=== PATIENT | female | born 1985 | race Caucasian/White ===

== ENCOUNTER → 2019-05-22 14:42 | Outpatient (BNVA) | payer SELFPAY | PROVIDERS: Visit Provider Family Medicine | DX: R05 Cough (principal) | CPT/HCPCS: 87071; 87400; 87635; 87880 ==

== ENCOUNTER → 2019-08-22 09:52 | Outpatient (BNVA) | payer SELFPAY | PROVIDERS: Visit Provider Podiatrist Foot & Ankle Surgery | DX: S86.111D Strain of other muscle(s) and tendon(s) of posterior muscle group at lower leg level, right leg, subsequent encounter (principal); X58.XXXD Exposure to other specified factors, subsequent encounter; M21.41 Flat foot [pes planus] (acquired), right foot; M79.671 Pain in right foot | CPT/HCPCS: 73630 ==

== ENCOUNTER 2019-08-23 09:57 | Day surgery (SDC) | payer SELFPAY ==
[2019-08-22 12:49] VITALS: BMI 42.5
[2019-08-23] VITALS (12 sets, daily range): BP systolic 133–175; BP diastolic 85–112; PULSE 85–116; RESP 16–20; TEMP 36.4–37.2; O2SAT 94–100
--- NOTE | 2019-08-23 | SCC_ITS ---
Procedure Done: Subtalar joint arthrodesis, right foot. Posterior tibial tendon repair, right foot. Gastrocnemius recession right lower extremity. 14 seconds of fluoroscopic guidance, for a cumulative dose of 0.4 mGy, was provided to Dr. Payan by the radiology department. C-arm images of the RIGHT foot were saved for the patient's permanent record. [facility]
--- NOTE | 2019-08-23 10:11 | ANES.PREANE2 ---
Pre-Anesthetic Assessment Pre-Anesthetic Assessment: Height/Weight: Height 1.63 m Weight 112.491 kg Preop Diagnosis: Posterior tibial tendon rupture and adult acquired flatfoot deformity right. Proposed Procedure: Operation Date: 08/23/19 11:00 Proposed Procedures p right subtalar joint arthrodesis talonavicular athrodesis [id number] M21.41(Right) - Iglesia Payan DPM s Gastrocnemius Recession(Right) - Iglesia Payan DPM Social: Social History: Alcohol (occ) and No tobacco Exam: Pre-Anes Outpt Exam: alert, oriented x 3, clear to auscultation bilaterally and regular rate & rhythm Airway: Submandibular: WNL Cervical ROM: WNL MP: 2 Dentition: Other (teeth ok) History/ROS: No significant history except as noted Pulmonary: Pulmonary: None reported CV/HEM: CV/HEM: None reported : : None reported Hepatic: Hepatic: None reported GI: GI: None reported Metabolic: Metabolic: Morbid obesity Musc/skel: Musc/skel: OA/DJD Neuropsych: Neuropsych: None reported Anesthetic Plan: ASA status: 3 Anesthesia: Anesthesia Evaluation, Eval. for regional block, General and Regional (specify below) (right Poplateal ) Risk of > 500 ml blood loss (7ml/kg in children): No PFSH Anesthesia PFSH: Medical History Arthralgia Pes planovalgus, acquired Surgical History History of appendectomy History of cholecystectomy History of toe surgery Social History Smoking and tobacco status: never smoked Alcohol intake: current Alcohol intake frequency: holidays/special occasions only Current occupational status: unemployed Female Reproductive History: Date of last menstrual period: 08/22/19 Data Anesthesia Cardiac Studies: No Data to Display
[2019-08-23] MEDS: sodium chloride 0.9% 1,000 ML 30 ML IV (10:42)
[2019-08-23] MEDS: fentaNYL 50 mcg/mL INJ 2mL 100 MCG IVP (11:00)
[2019-08-23] MEDS: midazolam 1 mg/mL INJ 2 mL 2 MG IVP (11:00)
--- NOTE | 2019-08-23 11:04 | ANES.PROC ---
Anesthesia Procedures Procedure/Date: 08/23/19 Nerve Block ^: Nerve Block 1: Main Anesthesia: general anesthesia Time Out Performed: Yes Consent: requested by attending/covering physician, risks and benefits reviewed and patient agrees to proceed Nerve block location: popliteal (right) Anesthesia monitors applied: pulse oximetry, EKG, BP cuff and oxygen Nerve block position: lateral (Left) Anesthetic Used: ropivicaine 0.5% and with decadron (4 mg) Amount of anesthesia used (mL): 30 Ultrasound used to: recognize landmarks Nerve Stimulator Used?: Yes Interscalene/Femoral BLK: 4 stimuplex 21 g needle used for position and inplane approach, visualize local anesthetic spread and no vascular puncture identified Injection: neg aspiration of heme Patient Tolerated Procedure: well and no complications Complications: none
[2019-08-23 11:08] LABS: OR HCG Qualitative Urine Negative (Negative)
[2019-08-23] MEDS: scopolamine 1.5 Patch 1 PATCH TRANSDERMA (11:14)
--- NOTE | 2019-08-23 11:38 | PM.OP ---
Operative Report Date of procedure: August 24, 2019 Pre-op Diagnosis: Posterior tibial tendon rupture and adult acquired flatfoot deformity right. Post-op diagnosis: same Procedure Done: Subtalar joint arthrodesis, right foot. Posterior tibial tendon repair, right foot. Gastrocnemius recession right lower extremity. Implants: [place] 28 7 mm partially-threaded headless cannulated screw x2. Arthrex FiberWire 2-0 Specimens removed/disposition: none Pathology: none sent Surgeon: Iglesia Payan Mail Order Clerk: Ad Pop Anesthesia: General Estimated blood loss (mL): 5 Tourniquet time: See intraoperative documentation IV fluids: None Urine output: None Complications: None Condition: stable Disposition: PACU Brief History: Ms. Geronimo is a pleasant 34-year-old female with progressive right lower extremity deformity and pain that is at this point affecting her ability to carry on with everyday activities. She has pain with weightbearing, walking with and without shoes. MRI confirms nearly complete rupture of the posterior tibial tendon. On exam has severe pes planovalgus deformity with gastrocnemius equinus. Recommended subtalar joint arthrodesis with primary repair of posterior tibial tendon and gastrocnemius recession to address the equinus deformity. She is agreeable wishes to proceed. Risks include pain, bleeding, numbness, infection, failure to correct deformity, overcorrection of deformity, rear foot varus, ankle instability, arthritic changes to adjacent joints including the ankle joint and the talonavicular joint. Hardware irritation, delayed union, malunion, nonunion, hardware failure, damage to adjacent soft tissues including tendon and nerve. Need for further surgical intervention. Patient is agreeable and wishes to proceed. Procedure: Under mild sedation the patient was brought to the operating room and placed on operating table in supine position. A timeout was performed. Anesthesia was then administered by the anesthesia service. Local anesthesia injected by myself consisting of 20 cc in a posterior leg block diffusely about the right gastrocnemius surgical site as well as a saphenous nerve block. A well-padded pneumatic tourniquet was applied to the high thigh right lower extremity. The right lower extremity was then scrubbed, prepped and draped utilizing normal aseptic technique. I utilized a Esmarch bandage to examine you weight the lower extremity, right after which the tourniquet was inflated 300 mmHg. Attention was directed to the right lateral rear foot where a curvilinear incision was made with a #15 blade started posterior and inferior 1 cm to the distal aspect of the lateral malleolus coursing in a curvilinear fashion to the base of the fourth metatarsal. Dissection was carried down through subcutaneous tissue utilizing a combination of blunt and sharp technique. Care was taken to retract and preserve neurovascular and tendinous structures. All bleeders were ligated and cauterized as necessary. Sural nerve was identified and gently retracted inferiorly, peroneal tendons also identified just posterior to the lateral malleolus at the peroneal groove this was also gently retracted utilizing a wheat [place] self-retaining retractor. Approaching the sinus tarsi the muscle origin of the extensor digitorum brevis was identified and reflected off of its origin accessing the sinus tarsi and removing it of its contents. Rondure was then utilized to visualize the subtalar joint posterior facet. Steinmann pin x2 utilized with intermittent retractor for joint distraction followed by preparation with curettage, osteotome followed by subchondral drilling with a 2.0 mm subchondral drill bit. Surfaces of the posterior middle and anterior facet of the talus and calcaneus were prepared for primary arthrodesis by removing all articular cartilage and performing drilling through the subchondral plate. Self-retaining joint distractor was removed followed by removal of Steinmann pins. Guidewire for a [place] 28 7 mm partially-threaded headless cannulated screw was utilized both for screw placement as well as temporary fixation the rear foot was held in a rectus position in all 3 cardinal planes and then favored a slight valgus position of 3 degrees of valgus. Lateral views and AP ankle views utilized to confirm positioning appropriate for fixation of subtalar joint arthrodesis the screw was through the posterior facet and did not violate the talus tibial joint articulation. A second screw was then inserted in like fashion across arthrodesis site with excellent bony apposition and compression noted. Placement with fluoroscopy in all 3 views noted to be excellent. Every fixation was removed and the incision site was flushed with copious amounts of sterile saline solution. Digitorum brevis muscle was reattached within the sinus tarsi and closure of periosteal structures with 2-0 Vicryl. Subcutaneous tissue closed with 4-0 Vicryl. Skin closed with 4-0 nylon. Attention was directed to the medial foot and ankle where the medial malleolus was palpated as well as the navicular tuberosity. A curvilinear incision was made approximately 5 cm in length along the course directly over the posterior tibial tendon, skin incision with a #15 blade followed by sharp and blunt dissection down to the tendon sheath of the posterior tibial tendon was performed which was then split longitudinally, care was taken to retract and preserve neurovascular and tendinous structures. All bleeders were ligated and cauterized as necessary. Primary repair of the posterior tibial tendon was performed after debulking and removal of nonviable degenerative tendon. Repair was performed with 2-0 FiberWire. Incision was flushed with copious amounts of sterile saline solution. Tendon sheath closed utilizing 2-0 Vicryl. Subcutaneous tissue was then closed utilizing 4-0 Vicryl and skin closed utilizing 4-0 nylon. Attention was directed to the right posterior leg where the myotendinous junction of the gastrocnemius Solus muscle and Achilles tendon was palpated. Proximal to this a incision was made 3 cm in length at the medial leg with blunt dissection carried down to the crural fascia which was incised 2 cm in length exposing the Allis and gastrocnemius muscles these were palpated and utilizing blunt dissection were well delineated followed by transection of the gastrocnemius aponeurosis utilizing Gatica scissors. Transection from medial to lateral was performed in total with care to protect neurovascular structures. Incision site was flushed with copious amounts of sterile saline solution. Crural fascia was reapproximated utilizing 2-0 Vicryl. Subcutaneous tissue closed with 2-0 Vicryl, skin closed with 4-0 nylon. Posterior heel percutaneous incisions from screw placement were reapproximated utilizing 4-0 nylon. It was noted that upon gastrocnemius recession that more dorsiflexion was appreciated at the ankle joint with an improvement of approximately 4 degrees of dorsiflexion post release. Incision sites were cleansed, dried and dressed utilizing nonadherent Adaptic, sterile 4 x 4's, ABD pad, Kerlix x2 and 4 as well as 6 inch Edy followed by application of cam boot. Tourniquet was deflated and a prompt hyperemic response was noted to the distal digits of the right foot. Patient tolerated the procedure well and was transferred to the PACU with vital signs stable and vascular status intact. Following a period of postoperative monitoring she will be discharged home is to be strict nonweightbearing and elevate her right foot while at rest.
--- NOTE | 2019-08-23 12:40 | W.PM.OPSUD ---
Surgery/Procedure H&P Update DATE OF PROCEDURE: August 23, 2019 DATE H&P PERFORMED: 08/22/19 H&P UPDATE INFORMATION: I have reviewed H&P completed within last 30 days, I have examined patient prior to procedure, No changes to prior documentation and H&P is in [facility] EMR on date indicated PREOP DIAGNOSIS: Posterior tibial tendon rupture and adult acquired flatfoot deformity right. PLANNED PROCEDURE: Operation Date: 08/23/19 11:00 Proposed Procedures p right subtalar joint arthrodesis talonavicular athrodesis [id number] M21.41(Right) - Iglesia Payan DPM s Gastrocnemius Recession(Right) - Iglesia Payan DPM
--- NOTE | 2019-08-23 14:55 | XR_ITS ---
WS: [id number] RIGHT FOOT: 3 VIEW(S) TECHNIQUE: AP, oblique and lateral. HISTORY: post op COMPARISON: 08/22/2019 Arthrodesis across the talocalcaneal joint space. There are 2 screws placed entering via the calcaneu s. No fractures. Normal tarsal/metatarsal alignment. XR/XR foot RT min 3V* [id number] IMPRESSION: Talocalcaneal arthrodesis. No apparent complications.
[2019-08-23] MEDS: fentaNYL 50 mcg/mL INJ 2mL IVP ×2 (15:06→15:11)
[2019-08-23] MEDS: oxyCODONE-APAP 10-325 mg Tablet 1 TAB PO (15:58)
== END 2019-08-23 16:25 | disposition home or self-care (01) ==
PROVIDERS: Anesthesiology; PCP Family Medicine; Visit Provider Podiatrist Foot & Ankle Surgery
PROC: (CPT 28740; principal; 2019-08-23 11:00)
PROC: (CPT 27687; 2019-08-23 11:00)
DX: S86.811A Strain of other muscle(s) and tendon(s) at lower leg level, right leg, initial encounter (principal); X58.XXXA Exposure to other specified factors, initial encounter; M21.41 Flat foot [pes planus] (acquired), right foot; M19.90 Unspecified osteoarthritis, unspecified site
CPT/HCPCS: 27658; 27687; 28725; 12345; 73630; 76000; 81025; 84703; 96374; 96375; C1713; J0131; J0690; J1100; J2250; J2405; J2704; J2765; J2795; J3010; J3490; J7030

== ENCOUNTER → 2019-09-05 10:12 | Outpatient (BNVA) | payer SELFPAY | PROVIDERS: PCP Family Medicine; Visit Provider Podiatrist Foot & Ankle Surgery | DX: S86.119A Strain of other muscle(s) and tendon(s) of posterior muscle group at lower leg level, unspecified leg, initial encounter (principal); M21.41 Flat foot [pes planus] (acquired), right foot; M79.671 Pain in right foot; X58.XXXA Exposure to other specified factors, initial encounter | CPT/HCPCS: 73610 ==

== ENCOUNTER → 2019-09-23 10:43 | Outpatient (BNVA) | payer SELFPAY | PROVIDERS: PCP Family Medicine; Visit Provider Podiatrist Foot & Ankle Surgery | DX: Z48.89 Encounter for other specified surgical aftercare (principal); S86.119A Strain of other muscle(s) and tendon(s) of posterior muscle group at lower leg level, unspecified leg, initial encounter; M79.671 Pain in right foot; M21.41 Flat foot [pes planus] (acquired), right foot; X58.XXXA Exposure to other specified factors, initial encounter | CPT/HCPCS: 73630 ==

== ENCOUNTER → 2019-09-24 09:04 | Outpatient (BNVA) | payer SELFPAY | PROVIDERS: PCP Family Medicine; Visit Provider Internal Medicine Rheumatology | DX: R76.8 Other specified abnormal immunological findings in serum (principal); Z79.899 Other long term (current) drug therapy; Z11.59 Encounter for screening for other viral diseases; Z11.1 Encounter for screening for respiratory tuberculosis; N96 Recurrent pregnancy loss; Z98.890 Other specified postprocedural states; M79.671 Pain in right foot | CPT/HCPCS: 36415; 80076; 81001; 82306; 82565; 82570; 84156; 85025; 85613; 85651; 85730; 86140; 86146; 86147; 86160; 86480; 86704; 86803; 86812; 87086; 87340; 99204 ==

== ENCOUNTER → 2019-10-14 10:05 | Outpatient (BNVA) | payer SELFPAY | PROVIDERS: PCP Family Medicine; Visit Provider Podiatrist Foot & Ankle Surgery | DX: Z47.89 Encounter for other orthopedic aftercare (principal); M21.41 Flat foot [pes planus] (acquired), right foot; M79.671 Pain in right foot | CPT/HCPCS: 73630 ==

== ENCOUNTER → 2019-10-29 13:17 | Outpatient (BNVA) | payer SELFPAY | PROVIDERS: PCP Family Medicine; Visit Provider Podiatrist Foot & Ankle Surgery | DX: Z98.890 Other specified postprocedural states (principal) | CPT/HCPCS: 73630 ==

== ENCOUNTER → 2019-11-07 12:42 | Outpatient (BNVA) | payer SELFPAY | PROVIDERS: PCP Family Medicine; Visit Provider Internal Medicine Rheumatology | DX: M35.9 Systemic involvement of connective tissue, unspecified (principal); Z79.899 Other long term (current) drug therapy; N96 Recurrent pregnancy loss; M19.90 Unspecified osteoarthritis, unspecified site; R76.8 Other specified abnormal immunological findings in serum | CPT/HCPCS: 99214 ==

== ENCOUNTER → 2019-11-13 14:55 | Outpatient (BNVA) | payer SELFPAY | PROVIDERS: PCP Family Medicine; Visit Provider Podiatrist Foot & Ankle Surgery | DX: Z98.890 Other specified postprocedural states (principal); Z48.89 Encounter for other specified surgical aftercare | CPT/HCPCS: 73630 ==

== ENCOUNTER 2019-12-06 17:34 | Emergency (ER) | payer OTHER, SELFPAY ==
[2019-12-06 17:45] VITALS: BP 183/132; PULSE 109; RESP 18; TEMP 37.3; O2SAT 99; BMI 42.9
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
[2019-12-06 19:22] VITALS: PULSE 109; O2SAT 99
== END 2019-12-06 19:28 | disposition home or self-care (01) ==
PROVIDERS: Emergency Provider Nurse Practitioner Family; PCP Family Medicine
DX: S40.011A Contusion of right shoulder, initial encounter (principal); S39.012A Strain of muscle, fascia and tendon of lower back, initial encounter; S96.911A Strain of unspecified muscle and tendon at ankle and foot level, right foot, initial encounter; V59.40XA Driver of pick-up truck or van injured in collision with unspecified motor vehicles in traffic accident, initial encounter
CPT/HCPCS: 12345; 72100; 73030; 73610; 99281; 99283

== ENCOUNTER 2020-02-27 11:12 | Outpatient (CLI) | payer OTHER, SELFPAY ==
--- NOTE | 2020-02-27 11:23 | XR_ITS ---
WS: [id number] Right hand, 3 views, 02/27/2020 Clinical Data: inflammatory arthritis Comparison: None. Findings: No fractures or dislocations are seen. The soft tissues are unremarkable. The joint space s are normal No periarticular demineralization or calcifications are seen. XR/XR hand RT min 3V* [id number] Impression: Negative right hand.
--- NOTE | 2020-02-27 11:23 | XR_ITS ---
WS: [id number] Chest 2 views, 02/27/2020 Clinical Data: inflammatory arthritis Comparison: PA and lateral chest, 03/11/2014. Findings: No nodules, masses or effusions are seen. The heart is normal. The pulmonary vascularity is not increased. No pneumonia or pneumothorax is seen. XR/XR chest 2V* [id number] Impression: Negative chest.
--- NOTE | 2020-02-27 11:23 | XR_ITS ---
WS: [id number] Left hand, 3 views, 02/27/2020 Clinical Data: inflammatory arthritis Comparison: None. Findings: No fractures or dislocations are seen. The soft tissues are unremarkable. The joint spaces are normal No periarticular demineralization or calcifications are seen. XR/XR hand LT min 3V* [id number] Impression: Negative left hand.
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
== END 2020-02-27 11:13 | disposition home or self-care (01) ==
PROVIDERS: PCP Family Medicine; Visit Provider Registered Nurse
DX: M25.562 Pain in left knee (principal); G89.29 Other chronic pain; S89.92XA Unspecified injury of left lower leg, initial encounter; M19.90 Unspecified osteoarthritis, unspecified site; X58.XXXA Exposure to other specified factors, initial encounter
CPT/HCPCS: 71046; 73130; 73562

== ENCOUNTER → 2020-03-13 15:14 | Outpatient (BNVA) | payer OTHER, SELFPAY | PROVIDERS: PCP Family Medicine; Visit Provider Podiatrist Foot & Ankle Surgery | DX: Z47.89 Encounter for other orthopedic aftercare (principal); M76.821 Posterior tibial tendinitis, right leg; M21.41 Flat foot [pes planus] (acquired), right foot; M79.671 Pain in right foot | CPT/HCPCS: 73630 ==

== ENCOUNTER 2020-04-21 09:35 | Outpatient (CLI) | payer OTHER, SELFPAY ==
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
== END 2020-04-21 09:36 | disposition home or self-care (01) ==
LOC: RADSHAW 09:38
PROVIDERS: PCP Registered Nurse; Visit Provider Registered Nurse
DX: N64.4 Mastodynia (principal); N63.10 Unspecified lump in the right breast, unspecified quadrant
CPT/HCPCS: 76642; 77066

== ENCOUNTER 2020-05-20 14:33 | Outpatient (CLI) | payer OTHER, SELFPAY | END 2020-05-20 14:34 | disposition home or self-care (01) | LOC: SPT 14:33 | PROVIDERS: PCP Registered Nurse; Visit Provider Podiatrist Foot & Ankle Surgery | DX: Z46.89 Encounter for fitting and adjustment of other specified devices (principal); M76.821 Posterior tibial tendinitis, right leg | CPT/HCPCS: L3030 ==

== ENCOUNTER 2020-11-02 09:56 | Outpatient (CLI) | payer OTHER, SELFPAY ==
--- NOTE | 2020-11-02 09:59 | US_ITS ---
WS: [id number] ULTRASOUND THYROID TECHNIQUE: Ultrasound of the thyroid. CLINICAL INFORMATION: MORBID OBESITY/SENSATION OF FB IN ESOPHAGUS COMPARISON: None. FINDINGS: Thyroid: Right and left thyroid lobes are normal in size and echotexture. No thyroid nodules are pres ent. Right thyroid lobe: 3.9 cm x 1.1 cm x 1.6 cm Left thyroid lobe: 4.1 cm x 1.3 cm x 1.5 cm. Isthmus: 4.9 mm. Cervical lymphadenopathy: None. US/US soft tissue head neck [id number] IMPRESSION: Normal thyroid ultrasound examination.
== END 2020-11-02 09:57 | disposition home or self-care (01) ==
LOC: RAD 09:57
PROVIDERS: PCP Registered Nurse; Visit Provider Registered Nurse
DX: E66.01 Morbid (severe) obesity due to excess calories (principal)
CPT/HCPCS: 76536

== ENCOUNTER 2020-11-05 14:44 | Outpatient (CLI) | payer OTHER, SELFPAY ==
--- NOTE | 2020-11-05 14:48 | XR_ITS ---
WS: [id number] LEFT HAND: 3 VIEW(S) TECHNIQUE: PA, oblique and lateral. HISTORY: LEFT HAND PAIN COMPARISON: 02/27/2020 No acute fracture or dislocation. No soft tissue or bone abnormality. XR/XR hand LT min 3V* [id number] IMPRESSION: Normal LEFT hand.
== END 2020-11-05 14:45 | disposition home or self-care (01) ==
PROVIDERS: PCP Registered Nurse; Visit Provider Registered Nurse
DX: M79.642 Pain in left hand (principal)
CPT/HCPCS: 73130

== ENCOUNTER 2020-12-04 09:23 | Outpatient (CLI) | payer OTHER, SELFPAY ==
--- NOTE | 2020-12-04 09:33 | US_ITS ---
WS: [id number] Right breast ultrasound, 12/04/2020 Clinical Data: ABNORMAL MAMMOGRAM;RT BREAST LUMP Comparison: Right breast ultrasound, 04/21/2020. Findings: In the right axilla there are 2 simple cysts, one measuring 0.44 x 0.66 x 0.6 cm and the other 0.88 x 0.74 x 0.90 cm. In the inferior lower quadrant of the right breast there are no abnormalities. Only normal breast tissue is seen. There are no cysts or masses in the inferior lower quadrant. US/US breast RT limited* 10280 Impression: 1. 2 simple cysts in the right axilla. 2. Negative inferior lower quadrant of the right breast. 3. Return to annual screening mammograms. BIRADS: 2-Benign FOLLOW UP: 1 Year Follow-up
--- NOTE | 2020-12-04 09:33 | MM_ITS ---
WS: [id number] Right breast diagnostic digital mammogram, 12/04/2020 Clinical Data: ABNORMAL MAMMOGRAM;PAIN OF RT BREAST Comparison: 04/21/2020 Findings: No spiculated masses or clustered calcifications are seen. There are no secondary signs of carcinoma. The breast parenchymal pattern shows fibroglandular tissue. The right axilla shows no abnormalities. The patient complains of a skin lesion in the lower inner quadrant of the right breast but no abnorm alities are seen. MM/[place] [address] Impression: 1. Negative right breast mammogram. 2. Right breast ultrasound will be performed. BIRADS: 2-Benign FOLLOW UP: See Report The CAD pattern checker was used.
== END 2020-12-04 09:24 | disposition home or self-care (01) ==
LOC: RADSHAW 09:27
PROVIDERS: PCP Registered Nurse; Visit Provider Registered Nurse
DX: R92.8 Other abnormal and inconclusive findings on diagnostic imaging of breast (principal); N60.01 Solitary cyst of right breast
CPT/HCPCS: 76642; 77065

== ENCOUNTER → 2021-01-19 08:30 | Outpatient (BNVA) | payer OTHER, SELFPAY | PROVIDERS: PCP Registered Nurse; Referring Provider Registered Nurse; Visit Provider Anesthesiology Pain Medicine | DX: G89.29 Other chronic pain (principal); M47.816 Spondylosis without myelopathy or radiculopathy, lumbar region; Z79.891 Long term (current) use of opiate analgesic | CPT/HCPCS: 99204 ==

== ENCOUNTER → 2021-01-25 11:43 | Outpatient (BNVA) | payer OTHER, SELFPAY | PROVIDERS: PCP Registered Nurse; Visit Provider Nurse Practitioner Family | DX: Z20.822 Contact with and (suspected) exposure to COVID-19 (principal) | CPT/HCPCS: 87635 ==

== ENCOUNTER → 2021-02-17 14:24 | Outpatient (BNVA) | payer OTHER, SELFPAY | PROVIDERS: PCP Registered Nurse; Visit Provider Podiatrist Foot & Ankle Surgery | DX: M79.671 Pain in right foot (principal) | CPT/HCPCS: 73630 ==

== ENCOUNTER 2021-02-24 07:47 | Outpatient (RCR) | payer OTHER, SELFPAY | END 2021-03-15 23:59 | disposition home or self-care (01) | LOC: SPT 07:47 | PROVIDERS: PCP Family Medicine; Referring Provider Anesthesiology Pain Medicine; Visit Provider Anesthesiology Pain Medicine | DX: M54.50 Low back pain, unspecified (principal); G89.29 Other chronic pain | CPT/HCPCS: 97110; 97162 ==

== ENCOUNTER 2021-03-16 11:19 | Outpatient (CLI) | payer OTHER, SELFPAY ==
--- NOTE | 2021-03-16 11:25 | CT_ITS ---
WS: [id number] CT HEAD NONCONTRAST HISTORY: Persistent HEADACHE TECHNIQUE: Contiguous axial imaging performed through the brain in 2.5 mm imaging. Bone and soft tiss ue windows. Sagittal and coronal reformats reviewed. All CT scans at [facility] use at least one of these dose optimization techniques: automated exposure control; mA and/or kV adjustment per pa tient size (includes targeted exams where dose is matched to clinical indication); or iterative recon struction. DLP: 959.18 mGy.cm COMPARISON: None available. No acute intracranial hemorrhage, midline shift or mass effect. No atrophy or prior infarcts or herniation. Ventricles: Normal size with no hydrocephalus. Paranasal sinuses: As visualized are clear. Mastoid air cells: Well pneumatized. Calvarium and scalp: Skull is intact with no soft tissue edema or swelling intractable. CT/CT head wo con* [id number] IMPRESSION: Negative head CT.
== END 2021-03-16 11:20 | disposition home or self-care (01) ==
LOC: RAD 11:20
PROVIDERS: PCP Family Medicine; Visit Provider Nurse Practitioner Family
DX: R51.9 Headache, unspecified (principal)
CPT/HCPCS: 70450

== ENCOUNTER 2021-05-26 10:26 | Outpatient (CLI) | payer OTHER, MEDICAID, SELFPAY ==
--- NOTE | 2021-05-26 10:36 | XR_ITS ---
WS: [id number] Lumbar spine, AP, L5-S1 spot, both obliques, lateral views in flexion, extension and neutral position , 05/26/2021 Clinical Data: M47.816 - Spondylosis without myelopathy or radiculopathy... Comparison: Lumbar spine, 12/06/2019. Findings: No compression fractures or subluxation is seen. The transverse processes and SI joints are normal. The oblique films show no spondylolysis or spondylolisthesis. There is minimal anterior osteoarthriti c spurring at L2-L3 with mild disc space narrowing. On flexion and extension there is no limitation o f motion or subluxation. XR/XR lumbar spine min 4V 08935 Impression: 1. Minimal degenerative disc narrowing at L2-L3. 2. Mild anterior osteoarthritic spurring L2-L3.
== END 2021-05-26 10:27 | disposition home or self-care (01) ==
LOC: RAD 10:29
PROVIDERS: PCP Family Medicine; Visit Provider Anesthesiology Pain Medicine
DX: M47.816 Spondylosis without myelopathy or radiculopathy, lumbar region (principal)
CPT/HCPCS: 72110

== ENCOUNTER 2021-05-28 05:59 | Day surgery (SDC) | payer OTHER, MEDICAID, SELFPAY ==
[2021-05-27 13:10] VITALS: BMI 43.7
[2021-05-28] VITALS (11 sets, daily range): BP systolic 145–177; BP diastolic 89–136; PULSE 84–103; RESP 15–21; TEMP 36.2–36.9; O2SAT 96–100; BMI 43.7
--- NOTE | 2021-05-28 | SCC_ITS ---
Procedure done: Right Lapidus bunionectomy. CPT code 42745 Right hallux interphalangeal joint arthrodesis. CPT code 70077 Right second hammertoe correction. CPT code 05683 19 seconds of fluoroscopic guidance, for a cumulative dose of 0.311 mGy, was provided to Dr. Payan by the radiology department. C-arm images of the right foot were saved for the patient's permanent record. [facility]
[2021-05-28] MEDS: CELEcoxib 200 mg Capsule 400 MG PO (06:32)
[2021-05-28] MEDS: gabapentin 300 mg Capsule PO (06:32)
[2021-05-28] MEDS: sodium chloride 0.9% 1,000 ML 30 ML IV ×2 (06:34→09:15)
--- NOTE | 2021-05-28 06:39 | P.HPUD_ITS ---
Surgery/Procedure H&P Update DATE OF PROCEDURE: May 28, 2021 DATE H&P PERFORMED: 05/26/21 PREOP DIAGNOSIS: Right bunion. Right hallux valgus. Right hallux malleus. PRIMARY INDICATION FOR PROCEDURE: None PLANNED PROCEDURE: Operation Date: 05/28/21 07:00 Proposed Procedures p Bunionectomy Lapidus 26702/68260/50042/32368/12257/m21.612/m20.10/736.72/ m20.42(Left) - IVY Soria Gastrocnemius Recession(Left) - IVY Soria hallux interphalangeal joint fusion(Left) - IVY Soria Hammertoe Correction left second toe(Left) - Iglesia Payan DPM
--- NOTE | 2021-05-28 06:46 | PM.OP ---
Operative Report Date of procedure: May 28, 2021 Pre-op diagnosis: Right bunion deformity. Right hallux malleus. Right second hammertoe. Post-op diagnosis: Same Post-op findings: None Procedure done: Right Lapidus bunionectomy. CPT code 90558 Right hallux interphalangeal joint arthrodesis. CPT code 67713 Right second hammertoe correction. CPT code 01734 Implants: Primary [place] 28 Lapidus plate. 4 mm headed screw x2 3.5 mm locking screws 3.5 mm nonlocking screw Hammer tube 3.5 mm 0 degree x 16 mm 3-0 Vicryl 4-0 Vicryl 4-0 nylon Beast 100 1cc demineralized bone matrix Specimens removed/disposition: None Pathology: None Surgeon: Iglesia Payan D.P.M. Web Merchant: Hussain Estimated blood loss: 10 96 IV fluids: 0 Urine output: 0 Complications: None Brief History: Patient is a pleasant 36-year-old female presenting to clinic for presurgical evaluation and updated history and physical in regards to her right foot pain.? She has pain at her right bunion deformity, right great toe deformity and right second hammertoe.? This pain is daily with standing, walking with and without shoes.? Has been utilizing custom molded orthotics and supportive shoes and daily stretching, anti-inflammatories and activity modifications without relief would like to proceed with surgical intervention.? She is here for discussion on surgical approach, recovery, risks and benefits.? Recommended right Lapidus bunionectomy, right hallux interphalangeal joint fusion, right second hammertoe repair with proximal interphalangeal joint arthrodesis and tendon transfer and possible Margaux osteotomy.? Also recommend a gastrocnemius recession to the right lower extremity to address equinus component.? Risks include but not limited to pain, bleeding, numbness, infection, hardware failure, delayed union, malunion, nonunion, failure to correct deformity, overcorrection of deformity, recurrence of deformity, hallux varus, altered mechanics, transfer pressure and transfer lesions, transfer pain, deep vein thrombosis, heart attack, cerebrovascular accident.?? Procedure: Under mild sedation the patient was brought to the operating room and placed on the operating table in supine position. A timeout was performed. Anesthesia was then administered by the anesthesia service. Local anesthesia injected by myself total of 30 cc of one-to-one mixture lidocaine and Marcaine 0.25% Marcaine and 2% lidocaine and a proximal right Gatica block and second ray block fashion. Well-padded pneumatic tourniquet applied to the right ankle. The right lower extremity was scrubbed, prepped and draped utilizing normal aseptic technique. Right foot was exanguinated with an Esmarch bandage and the tourniquet inflated to 250 mmHg. Attention was directed to the dorsal medial aspect of the right first metatarsal base and medial cuneiform joint. Curvilinear incision was made medial and parallel to the extensor houses longus tendon. Dissection carried down through subcutaneous tissue to the layer of periosteum utilizing sharp and blunt technique. Care was taken to retract and preserve neurovascular and tendinous structures. All bleeders were ligated and cauterized as necessary. Periosteal incision was made, the first metatarsal base and medial cuneiform joint was distracted with intermittent and Steinmann pins and denuded of articular surface followed by subchondral drilling and reduction of the intermetatarsal angle followed by temporary fixation. Intraoperative fluoroscopy confirmed reduction of the intermetatarsal angle and this was fixated utilizing standard AO technique with a 4.0 mm headed partially-threaded screw from dorsal distal to proximal plantar not violating the cuneiform navicular joint confirmed with fluoroscopy. Excellent bony apposition and compression noted. The Lapidus bunionectomy site was then further fixated utilizing a standard [place] 28 Lapidus plate with 3.5 mm locking and locking screws with excellent bony apposition and compression. Temporary fixation was removed. 1 cc of demineralized bone matrix introduced at the arthrodesis site for all gaps to be tightly packed. Incision was flushed with saline and closed with 3-0 Vicryl, 4-0 Vicryl and 4-0 nylon. Attention was directed to the dorsal aspect of the right hallux interphalangeal joint where 2 semielliptical converging incisions were performed in a transverse plane with skin bridge excised and passed proper field. Transverse incision over the extensor houses longus and gaining access to the hallux interphalangeal joint which was prepared for arthrodesis by removal of all soft tissue attachments, osteotomy at the head of the proximal phalanx and base of the distal phalanx, subchondral drilling and reduction of deformity. Subchondral drilling performed. Fixation utilizing [place] 28 4.0 mm headed screw with excellent bony apposition and compression noted from distal to proximal. Incision was flushed and closed with the extensor tendon reapproximated with 3-0 Vicryl, skin closed with 4-0 nylon. Attention was then directed to the second toe dorsally of the right foot where a linear longitudinal incision was made encompassing the proximal interphalangeal joint. Dissection was carried down through skin and subcutaneous tissue with care taken to retract and preserve neurovascular and tendinous structures. All bleeders were ligated and cauterized as necessary. A transverse tenotomy and capsulotomy was performed followed by resection of the proximal phalanx head of the second digit and base of the intermediate phalanx of the second digit. Incision was flushed, hammer tube was then implanted permanent fracture recommendation on package insert with excellent bony apposition and compression noted of the hammertoe correction being reduced confirmed with intraoperative fluoroscopy. Incision was flushed with saline solution and closed with 3-0 Vicryl to reapproximate the extensor tendon and 4-0 nylon at skin. All incisions were dressed with Adaptic, sterile 4 x 4, Kerlix, Edy wrap and a cam boot was applied followed by deflation of the tourniquet and a prompt hyperemic response is noted to the distal digits of the right foot. Patient tolerated the procedure well and was transferred to the PACU with vital signs stable and vascular status intact. Following a period of postop monitoring she will be discharged home is to be nonweightbearing to the right lower extremity. Will follow-up Monday next week for her first dressing change. Recommended baby aspirin 81 mg once daily starting tomorrow to potentially reduce the risk of deep vein thrombosis.
[2021-05-28 06:56] LABS: OR HCG Qualitative Urine Negative (Negative)
--- NOTE | 2021-05-28 07:07 | P.ANESASSM_ITS ---
Pre-Anesthetic Assessment Height/Weight: Height 1.63 m Weight 115.666 kg Temp Pulse Resp BP Pulse Ox 97.9 F 84 18 168/112 99 05/28/21 06:11 05/28/21 06:11 05/28/21 06:11 05/28/21 06:11 05/28/21 06:11 Preop Diagnosis: Right bunion. Right hallux valgus. Right hallux malleus. Operation Date: 05/28/21 07:00 Proposed Procedures p Bunionectomy Lapidus 2829 7/43210/86070/13803/66727/m21.612/m20.10/736.72/m20.42(Left) - IVY Soria Gastrocnemius Recession(Left) - IVY Soria hallux interphalangeal joint fusion(Left) - IVY Soria Hammertoe Correction left second toe(Left) - Iglesia Payan DPM Familial anesthetic complications: None Was Beta Shanika taken within 24 hours: N/A Was Clonidine taken within 24 hours: N/A Last intake: Intake Last Liquid Date 05/27/21 Last Liquid Time 22:00 Last Solid Date 05/27/21 Last Solid Time 22:00 Social No alcohol and No tobacco Exam alert, oriented x 3, clear to auscultation bilaterally and regular rate & rhythm Airway Submandibular: within normal limits Cervical ROM: within normal limits Mallampati: Class II Dentition: chipped GI Gastroesophageal Reflux Disease Metabolic Morbid Obesity Musc/skel Lower Back Pain and Osteoarthritis/DJD Anesthetic Plan ASA status: 3 Anesthesia: General Medications/Allergies Home Medications Medication Instructions Recorded Confirmed Last Taken Type calcium carbonate 600 mg calcium 600 mg PO DAILY 09/24/19 05/27/21 05/27/21 History (1,500 mg) tablet (Calcium) cholecalciferol (vitamin D3) 50 2,000 unit PO DAILY #30 tab 11/07/19 05/27/21 05/27/21 Rx mcg (2,000 unit) tablet Sole Supports #1 ea 03/13/20 05/26/21 Unknown Rx fluoxetine 10 mg capsule 10 mg PO DAILY 11/19/20 05/27/21 05/27/21 History tizanidine 2 mg capsule (Zanaflex) 2 mg PO BID PRN 11/19/20 05/28/21 Unknown History cetirizine 10 mg capsule (Zyrtec) 10 mg PO DAILY PRN #30 cap 01/12/21 05/27/21 05/27/21 Rx fluticasone propionate 50 1 spray INTRANASAL DAILY #16 g 01/12/21 05/27/21 05/27/21 Rx mcg/actuation nasal spray,suspension (Allergy Relief (fluticasone)) Wheelchair #1 ea 05/26/21 05/26/21 Unknown Rx oxycodone-acetaminophen 10 mg-325 1 tab PO Q6H PRN 7 Days #28 tab 05/28/21 Unknown Rx mg tablet (Percocet) Allergies Allergy/AdvReac Type Severity Reaction Status Date / Time adhesive tape Allergy Intermediate ALGY-Rash Verified 05/27/21 13:07 Current Medications Generic Name Dose Route Start Last Admin Trade Name Freq PRN Reason Stop Dose Admin Sodium Chloride 1,000 mls @ 30 mls/hr 05/28/21 06:15 05/28/21 06:34 Sodium Chloride 0.9% IV 05/29/21 06:14 30 mls/hr .Q24H JOSELITO Administration PFSH Anesthesia Medical History Arthralgia High risk medication use History of recurrent miscarriages Immunization counseling Inflammatory arthritis Pes planovalgus, acquired Positive DANIELA (antinuclear antibody) Undifferentiated connective tissue disease Surgical History History of appendectomy History of cholecystectomy History of foot surgery 08/23/19ubtalor infusion repair tendon and extend Achilles tendon History of toe surgery Family History Other Chronic kidney disease (CKD) Diabetes H/O scleroderma Hyperlipidemia Hypertension Lupus Rheumatoid arthritis Denies family history of CAD (coronary artery disease) Lung disease Cancer Stroke Social History Smoking and tobacco status: former smoker Alcohol intake: current Alcohol intake frequency: holidays/special occasions only Current occupational status: unemployed Female Reproductive History Date of last menstrual period: 03/02/21 Data Anesthesia Cardiac Studies: No Data to Display
[2021-05-28] MEDS: lidocaine 2% INJ 20 mL 15 ML INJECTION (07:40)
--- NOTE | 2021-05-28 09:24 | XR_ITS ---
WS: [id number] Right foot, 3 views, 05/28/2021 Clinical Data: post op Comparison: Right foot, 02/17/2021. Findings: There is an arthrodesis of the base of the right first metatarsal with the first cuneiform. Plate and screws achieve this arthrodesis. There is an arthrodesis of the right first toe IP joint with a radi opaque screw. The 2 screws fusing the calcaneal talar articulation remain the same. XR/XR foot RT min 3V* [id number] Impression: 1. Arthrodesis of the base of the right first metatarsal and the right first IP joint. 2. Arthrodesis of the talar calcaneal joint.
[2021-05-28] MEDS: hyDRALAzine 20 mg/mL INJ 1 mL 10 MG IVP (09:34)
--- NOTE | 2021-05-28 09:39 | SUR.PHASEI ---
0930: patients blood pressure consistently around current reading of 168/105. reported [address] nunez. order for hydralazine received, will medicate per orders. 0939: patient on room air. sats at 100.
[2021-05-28] MEDS: oxyCODONE-APAP 10-325 mg Tablet 1 TAB PO (10:22)
--- NOTE | 2021-05-28 13:06 | ANE.PACU2 ---
Inpatient post-anesthesia follow up: Airway intact: Yes Vital signs: Temperature 97.2 F Pulse Rate 103 Respiratory Rate 18 Blood Pressure 145/89 Pulse Oximetry 99 Oxygen Delivery Me thod Room Air Oxygen Flow Rate 8 Fraction of Inspir ed Oxygen Hydration adequate: Yes Nausea and vomiting: No Pain level: 2 Mental status: Baseline
== END 2021-05-28 10:40 | disposition home or self-care (01) ==
PROVIDERS: PCP Family Medicine; Visit Provider Podiatrist Foot & Ankle Surgery
PROC: (CPT 28297; principal; 2021-05-28 07:00)
PROC: (CPT 28750; 2021-05-28 07:00)
PROC: (CPT 28285; 2021-05-28 07:00)
DX: M21.611 Bunion of right foot (principal); M20.31 Hallux varus (acquired), right foot; M20.41 Other hammer toe(s) (acquired), right foot; K21.9 Gastro-esophageal reflux disease without esophagitis; E66.01 Morbid (severe) obesity due to excess calories; Z68.41 Body mass index [BMI] 40.0-44.9, adult; M19.90 Unspecified osteoarthritis, unspecified site; Z87.891 Personal history of nicotine dependence
CPT/HCPCS: 28285; 28297; 28755; 73630; 76000; 81025; 84703; C1713; J0360; J0690; J2250; J2704; J3010; J3490; J7030

== ENCOUNTER → 2021-06-14 13:09 | Outpatient (BNVA) | payer OTHER, MEDICAID, SELFPAY | PROVIDERS: PCP Family Medicine; Visit Provider Podiatrist Foot & Ankle Surgery | DX: Z98.890 Other specified postprocedural states (principal) | CPT/HCPCS: 73630 ==

== ENCOUNTER → 2021-06-22 14:15 | Outpatient (BNVA) | payer OTHER, MEDICAID, SELFPAY | PROVIDERS: PCP Family Medicine; Visit Provider Podiatrist Foot & Ankle Surgery | DX: M79.671 Pain in right foot (principal) | CPT/HCPCS: 73630 ==

== ENCOUNTER → 2021-07-01 13:38 | Outpatient (BNVA) | payer OTHER, MEDICAID, SELFPAY | PROVIDERS: PCP Family Medicine; Visit Provider Podiatrist Foot & Ankle Surgery | DX: Z98.890 Other specified postprocedural states (principal); Z98.1 Arthrodesis status | CPT/HCPCS: 73630 ==

== ENCOUNTER → 2021-07-15 13:47 | Outpatient (BNVA) | payer OTHER, MEDICAID, SELFPAY | PROVIDERS: PCP Family Medicine; Visit Provider Podiatrist Foot & Ankle Surgery | DX: Z47.89 Encounter for other orthopedic aftercare (principal); Z47.1 Aftercare following joint replacement surgery | CPT/HCPCS: 73630 ==

== ENCOUNTER → 2021-08-19 13:21 | Outpatient (BNVA) | payer OTHER, MEDICAID, SELFPAY | PROVIDERS: PCP Family Medicine; Visit Provider Podiatrist Foot & Ankle Surgery | DX: Z98.890 Other specified postprocedural states (principal) | CPT/HCPCS: 73630; 99024 ==

== ENCOUNTER → 2021-08-31 10:23 | Outpatient (BNVA) | payer MEDICAID, SELFPAY | PROVIDERS: PCP Family Medicine; Visit Provider Anesthesiology Pain Medicine | DX: M25.551 Pain in right hip (principal); M25.552 Pain in left hip; M54.12 Radiculopathy, cervical region; M47.816 Spondylosis without myelopathy or radiculopathy, lumbar region | CPT/HCPCS: 72040; 99214 ==

== ENCOUNTER 2021-09-28 11:25 | Outpatient (CLI) | payer MEDICAID, SELFPAY ==
--- NOTE | 2021-09-28 11:48 | XR_ITS ---
WS: [email or web address] Exam: XR chest 2V* [id number] Date/Time of Exam: 09/28/2021 12:03 PM Reason For Exam: SHORTNESS OF BREATH W/EXPOSURE TO COVID 19 Comparison 02/27/2020. Findings: The lungs are clear and fully expanded. Costophrenic angles are sharp. No infiltrates. Bronchovascula r relief appears normal. Cardiac silhouette is unremarkable. Bony elements are intact. XR/XR chest 2V* [id number] IMPRESSION: Unremarkable chest radiograph.
== END 2021-09-28 11:26 | disposition home or self-care (01) ==
LOC: RAD 11:28
PROVIDERS: PCP Family Medicine; Visit Provider Nurse Practitioner Family
DX: R06.02 Shortness of breath (principal); Z20.822 Contact with and (suspected) exposure to COVID-19
CPT/HCPCS: 71046

== ENCOUNTER → 2021-10-11 15:54 | Outpatient (BNVA) | payer MEDICAID, SELFPAY | PROVIDERS: PCP Family Medicine; Visit Provider Podiatrist Foot & Ankle Surgery | DX: M21.611 Bunion of right foot (principal); L60.3 Nail dystrophy; M21.861 Other specified acquired deformities of right lower leg; M20.11 Hallux valgus (acquired), right foot; M20.41 Other hammer toe(s) (acquired), right foot | CPT/HCPCS: 73630; 99213 ==

== ENCOUNTER 2022-07-08 07:48 | Outpatient (CLI) | payer MEDICAID, SELFPAY ==
--- NOTE | 2022-07-08 | US_ITS ---
DIAGNOSTIC BILATERAL DIGITAL BREAST TOMOSYNTHESIS MAMMOGRAPHY WITH CAD RIGHT breast ultrasound, limited HISTORY: Enlarging palpable area RIGHT upper outer quadrant. COMPARISON: None available. TECHNIQUE: Bilateral craniocaudad, mediolateral oblique, and mediolateral views are submitted with tomosynthesis and SM. . Compression RIGHT CC. Computer aided detection utilized. Breast composition: There are scattered areas of fibroglandular density. Known oil cyst in the upper outer quadrant of the RIGHT breast near the axillary tail has been previously described. This oil cyst now with increased density as compared to the prior study. No significant enlargement. The cyst is less well visualized today. No additional abnormalities are identified within either breast. RIGHT breast ultrasound, limited. Change in appearance of the previously described posttraumatic oil cyst in the RIGHT axillary tail near 10:00. There is a thick wall mass with lucent center corresponding to the palpable abnormality. Heterogeneous mass measures 10 x 10 x 10 mm. Minimal increased vascularity within the periphery. There is an adjacent smaller similar but more cystic mass without wall thickening. Previously described oil cyst is not identified on the mammogram. IMPRESSION: BI-RADS: 4-Suspicious Finding-Biopsy Should Be Considered FOLLOW UP: See Report 1. Palpable area RIGHT breast at 10:00 corresponds with a thick wall mass with cystic center measuring 10 x 10 x 10 mm. This is in a similar location as the previously described oil cyst from trauma described on 12/04/2020. The oil cyst is no longer present but replaced with this thick wall mass. I suspect there may have been partial rupture of the oil cyst resulting in this inflammatory process. Sampling or surgical removal of this mass should be considered due to the interval change. Ultrasound-guided biopsy is of concern as this would produce additional inflammatory reaction to the needle penetration of the wall. Consider surgical removal. If that is not an option ultrasound-guided biopsy with a small gauge needle can be attempted knowing there may be an additional inflammatory response. MTDD
--- NOTE | 2022-07-08 08:27 | MM_ITS ---
WS: [id number] DIAGNOSTIC BILATERAL DIGITAL BREAST TOMOSYNTHESIS MAMMOGRAPHY WITH CAD RIGHT breast ultrasound, limited HISTORY: Enlarging palpable area RIGHT upper outer quadrant. COMPARISON: None available. TECHNIQUE: Bilateral craniocaudad, mediolateral oblique, and mediolateral views are submitted with to mosynthesis and SM. . Compression RIGHT CC. Computer aided detection utilized. Breast composition: There are scattered areas of fibroglandular density. Known oil cyst in the upper outer quadrant of the RIGHT breast near the axillary tail has been previously described. This oil cys t now with increased density as compared to the prior study. No significant enlargement. The cyst is less well visualized today. No additional abnormalities are identified within either breast. RIGHT breast ultrasound, limited. Change in appearance of the previously described posttraumatic oil cyst in the RIGHT axillary tail ne ar 10:00. There is a thick wall mass with lucent center corresponding to the palpable abnormality. He terogeneous mass measures 10 x 10 x 10 mm. Minimal increased vascularity within the periphery. There is an adjacent smaller similar but more cystic mass without wall thickening. Previously described oil cyst is not identified on the mammogram. MM/[place] [id number] IMPRESSION: BI-RADS: 4-Suspicious Finding-Biopsy Should Be Considered FOLLOW UP: See Report 1. Palpable area RIGHT breast at 10:00 corresponds with a thick wall mass with cystic center measuring 10 x 10 x 10 mm. This is in a similar location as the previously described oil cyst from trauma described on 12/04/2020. The oil cys t is no longer present but replaced with this thick wall mass. I suspect there may have been partial rupture of the oil cyst resulting in this inflammatory pr ocess. Sampling or surgical removal of this mass should be considered due to th e interval change. Ultrasound-guided biopsy is of concern as this would produce additional inflammatory reaction to the needle penetration of the wall. Consid er surgical removal. If that is not an option ultrasound-guided biopsy with a s mall gauge needle can be attempted knowing there may be an additional inflammat ory response.
== END 2022-07-08 07:49 | disposition home or self-care (01) ==
PROVIDERS: PCP Family Medicine; Visit Provider Family Medicine
DX: N60.01 Solitary cyst of right breast (principal)
CPT/HCPCS: 76642; 77062; G0279

== ENCOUNTER 2022-07-25 12:34 | Day surgery (SDC) | payer MEDICAID, SELFPAY ==
[2022-07-22 12:53] VITALS: BMI 44.2
[2022-07-25] VITALS (7 sets, daily range): BP systolic 118–158; BP diastolic 83–118; PULSE 72–95; RESP 12–18; TEMP 36.1–36.4; O2SAT 96–98
[2022-07-25] MEDS: sodium chloride 0.9% 1,000 ML 30 ML IV (12:51)
--- NOTE | 2022-07-25 13:07 | W.PM.OPSUD ---
Surgery/Procedure H&P Update DATE OF PROCEDURE: July 25, 2022 DATE H&P PERFORMED: 07/20/22 H&P UPDATE INFORMATION: I have reviewed H&P completed within last 30 days, I have examined patient prior to procedure and No changes to prior documentation PLANNED PROCEDURE: Operation Date: 07/25/22 14:00 Proposed Procedures p R breast lumpectomy 57819, N63.0(Right) - Jaden Huerta DO
[2022-07-25] MEDS: ceFAZolin 2,000 MG in sodium chloride 0.9% (plus) 50 ML 100 MG IV (13:28)
--- NOTE | 2022-07-25 13:40 | ANES.PREANE2 ---
Pre-Anesthetic Assessment Height/Weight: Height 1.63 m Weight 117.027 kg Temp Pulse Resp BP Pulse Ox O2 Del Method 97 F L 95 18 158/118 98 Room Air 07/25/22 12:37 07/25/22 12:37 07/25/22 12:37 07/25/22 12:37 07/25/22 12:37 07/25/22 13:11 Operation Date: 07/25/22 14:00 Proposed Procedures p R breast lumpectomy 07427, N63.0(Right) - Jaden Huerta DO Familial anesthetic complications: none Was Beta Shanika taken within 24 hours: N/A Was Clonidine taken within 24 hours: N/A Last intake: Intake Last Liquid Date 07/24/22 Last Liquid Time 21:00 Last Solid Date 07/24/22 Last Solid Time 21:00 Social No alcohol and No tobacco Exam alert, oriented x 3, clear to auscultation bilaterally and regular rate & rhythm Airway Submandibular: within normal limits Cervical ROM: within normal limits Mallampati: Class II Dentition: full CV/HEM Anemia GI Gastroesophageal Reflux Disease Metabolic Hyperlipidemia [facility] [place] Rheumatoid Arthritis Anesthetic Plan ASA status: 3 Anesthesia: General Medications/Allergies Home Medications Medication Instructions Recorded Confirmed Last Taken Type Sole Supports #1 ea 03/13/20 07/20/22 07/24/22 Rx tizanidine 2 mg capsule (Zanaflex) 2 mg PO BID PRN back spasm 11/19/20 07/22/22 07/24/22 History atorvastatin 40 mg tablet 40 mg PO DAILY 02/24/22 07/22/22 07/24/22 History cholecalciferol (vitamin D3) 50 10,000 unit PO DAILY 02/24/22 07/22/22 07/24/22 History mcg (2,000 unit) tablet ferrous sulfate 325 mg (65 mg 325 mg PO DAILY 02/24/22 07/22/22 07/24/22 History iron) tablet (Feosol) folic acid 1 mg tablet 1 mg PO DAILY 02/24/22 07/22/22 07/24/22 History mecobalamin (vitamin B12) 5,000 5,000 mcg PO DAILY 02/24/22 07/22/22 07/24/22 History mcg chewable tablet omeprazole 20 mg capsule,delayed 20 mg PO DAILY 02/24/22 07/22/22 07/24/22 History release rizatriptan 10 mg tablet 10 mg PO Q2H PRN Migraine Headache 02/24/22 07/22/22 07/24/22 History venlafaxine 75 mg capsule,extended 75 mg PO DAILY 02/24/22 07/22/22 07/24/22 History release 24 hr mupirocin 2 % topical ointment 1 applic topical BID 2 weeks #22 04/28/22 07/22/22 07/24/22 Rx grams methotrexate sodium 2.5 mg tablet 2.5 mg PO DAILY 07/20/22 07/22/22 07/24/22 History oxybutynin chloride 5 mg 5 mg PO DAILY 07/20/22 07/22/22 07/24/22 History tablet,extended release 24 hr cetirizine 10 mg capsule (Zyrtec) 10 mg PO DAILY 07/22/22 07/22/22 07/24/22 History naproxen sodium 220 mg capsule 220 mg PO BID PRN Inflammation 07/22/22 07/22/22 07/24/22 History (Aleve) Allergies Allergy/AdvReac Type Severity Reaction Status Date / Time adhesive tape Allergy Intermediate ALGY-Rash Verified 07/22/22 12:48 hormons in control AdvReac migraine Uncoded 07/22/22 12:48 Current Medications Generic Name Dose Route Start Last Admin Trade Name Freq PRN Reason Stop Dose Admin Sodium Chloride 1,000 mls @ 30 mls/hr 07/25/22 12:45 07/25/22 12:51 Sodium Chloride 0.9% IV 07/26/22 12:44 30 mls/hr .Q24H JOSELITO Administration PFSH Anesthesia Medical History High risk medication use History of recurrent miscarriages Hypertrophy of tongue Immunization counseling Inflammatory arthritis Joint pain Left hip pain Onychodystrophy Positive DANIELA (antinuclear antibody) Sacroiliac inflammation Undifferentiated connective tissue disease Surgical History History of appendectomy History of cholecystectomy History of foot surgery 08/23/19ubtalor infusion repair tendon and extend Achilles tendon History of toe surgery Postoperative state Family History Other Chronic kidney disease (CKD) Diabetes H/O scleroderma Hyperlipidemia Hypertension Lupus Rheumatoid arthritis Denies family history of CAD (coronary artery disease) Lung disease Cancer Stroke Social History Smoking and tobacco status: never smoked Second hand smoke exposure: Yes Alcohol intake: current Alcohol intake frequency: holidays/special occasions only Alcohol type: wine Substance/Drug Use: never Current occupational status: unemployed Data Anesthesia Cardiac Studies: No Data to Display
[2022-07-25] MEDS: lidocaine-epi 2% 20 mL INJ INJECTION (13:47)
--- NOTE | 2022-07-25 14:39 | ANE.PACU2 ---
Inpatient post-anesthesia follow up: Airway intact: Yes Vital signs: Temperature 97 F Pulse Rate 83 Respiratory Rate 18 Blood Pressure 125/86 Pulse Oximetry 97 Oxygen Delivery Me thod Room Air Oxygen Flow Rate 6 Fraction of Inspir ed Oxygen Hydration adequate: Yes Nausea and vomiting: No Pain level: 2 Mental status: Baseline
[2022-07-25] MEDS: HYDROcodone-acetaminophen 5-325 mg Tablet 1 TAB PO (14:44)
--- NOTE | 2022-07-25 14:52 | PM.OP ---
Operative Report Date of procedure: July 25, 2022 Pre-op diagnosis: Right breast mass Post-op diagnosis: same Procedure done: Right breast lumpectomy Implants: None Specimens removed/disposition: Right breast lipectomy Surgeon: Dr. Jaden Huerta DO Anesthesia: General Estimated blood loss (mL): 5 Complications: None apparent Brief History: This is a very pleasant 37-year-old female who was found to have a cystic mass of her right breast. Radiology felt that this was best handled with surgical excision. Right breast lumpectomy was indicated. The risk and benefits were explained and documented. Procedure: The patient was brought back into the operating room. She was placed on the OR table in the supine position. The right breast and axilla were inspected prepped and draped in usual sterile fashion. Next, after localization a 5 cm incision was made over the mass, in the 9 o'clock position. Electrocautery was used to carve out a lumpectomy specimen. The entire needle was included. Specimen was taken out en bloc. Hemostasis was achieved with electrocautery. The dermis was approximated with 3-0 Vicryl. The skin was closed with 4-0 Vicryl in a subcuticular and running fashion. Dermabond was applied. Patient tolerated the procedure well.
== END 2022-07-25 15:18 | disposition home or self-care (01) ==
PROVIDERS: PCP Family Medicine; Visit Provider Surgery
PROC: (CPT 19120; principal; 2022-07-25 13:50)
DX: N63.0 Unspecified lump in unspecified breast (principal); K21.9 Gastro-esophageal reflux disease without esophagitis; E78.5 Hyperlipidemia, unspecified; M06.9 Rheumatoid arthritis, unspecified; Z79.899 Other long term (current) drug therapy
CPT/HCPCS: 19301; 88307; J0690; J1100; J2250; J2405; J2704; J3010; J3490; J7030

== ENCOUNTER → 2022-08-09 07:57 | Outpatient (BNVA) | payer OTHER, MEDICAID, SELFPAY | PROVIDERS: PCP Family Medicine; Visit Provider Obstetrics & Gynecology | DX: N93.9 Abnormal uterine and vaginal bleeding, unspecified (principal); N85.2 Hypertrophy of uterus | CPT/HCPCS: 76830 ==

== ENCOUNTER 2022-08-09 14:52 | Emergency (ER) | payer OTHER, MEDICAID, SELFPAY ==
[2022-08-09 15:12] VITALS: BP 186/114; PULSE 87; RESP 16; TEMP 36.8; O2SAT 94; BMI 44.2
--- NOTE | 2022-08-09 15:50 | W.ED.HA ---
HPI - Headache General: Chief Complaint: Headache Stated Complaint: high bp, headache Time Seen by Provider: 08/09/22 15:40 Source: patient Mode of arrival: ambulatory Limitations: no limitations History of Present Illness: 37-year-old female does have a history of migraine she states that she woke up this morning with a migraine headache states worsened throughout the day headaches currently a 7 out of 10 has some photo and phonophobia. This is like her previous migraines she went to her outpatient follow-up from a lumpectomy a few weeks ago and was hypertensive there as well she states she gets hypertensive at times but does not have a diagnosis of hypertension does not take any meds she states that she believes her blood pressure is up from having a headache she denies this being worse headache of life no neck pain no fevers. Associated symptoms: Reports nausea; Deny chest pain, fever(s), rash or vomiting Review of Systems Const: Denies: fever(s) or chills Eyes: Denies: blurry vision or eye discomfort ENMT: Denies: throat pain or dental pain Card: Denies: chest pain Resp: Denies: dyspnea GI: Reports: nausea; Denies: abdominal pain, vomiting or diarrhea Musc: Denies: neck pain or back pain Skin/Breast: Denies: rash Neuro: Reports: headache(s) PFSH ED PFSH: Medical History High risk medication use History of recurrent miscarriages Hypertrophy of tongue Immunization counseling Inflammatory arthritis Joint pain Left hip pain Onychodystrophy Positive DANIELA (antinuclear antibody) Sacroiliac inflammation Undifferentiated connective tissue disease Surgical History History of appendectomy History of cholecystectomy History of foot surgery 08/23/19ubtalor infusion repair tendon and extend Achilles tendon History of lumpectomy of right breast 07/25/22 Dr. Huerta History of toe surgery Postoperative state Family History Other Chronic kidney disease (CKD) Diabetes H/O scleroderma Hyperlipidemia Hypertension Lupus Rheumatoid arthritis Denies family history of CAD (coronary artery disease) Lung disease Cancer Stroke Social History Smoking and tobacco status: never smoked Second hand smoke exposure: Yes Alcohol intake: current Alcohol intake frequency: holidays/special occasions only Alcohol type: wine Substance/Drug Use: never Current occupational status: unemployed Physical Exam Const: COMMON NORMALS: no acute distress, patient oriented x3 and healthy appearing HENMT: COMMON NORMALS: normocephalic and atraumatic HEAD & SCALP: normocephalic and atraumatic Eye: COMMON NORMALS: Equal, round and reactive pupils present and EOMs intact bilaterally PUPIL: Yes Equal, round and reactive pupils present Neck/C-Spine: COMMON NORMALS: full ROM, supple and no meningeal signs Chest: COMMONS NORMALS: normal inspection of the chest and normal palpation of entire chest wall Resp: COMMON NORMALS: normal respiratory effort Cardio: COMMON NORMALS: regular rate, regular rhythm and No murmurs present (Cardio) RATE: regular rate RHYTHM: regular rhythm GI: INSPECTION: Yes normal to inspection Extremity: COMMON NORMALS: normal to inspection and full ROM Neuro: COMMON NORMALS: patient oriented x3, moves all extremities and no focal motor deficits MENINGEAL SIGNS: Yes no meningeal signs Psych: COMMON NORMALS: mental status grossly normal, Normal thought process present and cooperative THOUGHT PROCESS: Normal thought process present Skin: COMMON NORMALS: no rashes or lesions noted and no wounds GENERAL SKIN EXAM: no rashes or lesions noted Course Vital Signs: Vital signs: Vital Signs Temperature 98.3 F 08/09/22 15:12 Pulse Rate 87 08/09/22 15:12 Respiratory Rate 16 08/09/22 15:12 Blood Pressure 186/114 08/09/22 15:12 Pulse Oximetry 94 08/09/22 15:12 Oxygen Delivery Me thod Room Air 08/09/22 15:12 MDM - Headache Medical Decision Making Patient presents here with a headache likely migraine headache. Her headache here is resolved with Reglan Benadryl she has had some hypertension here is improved as well but will start on Norvasc is no signs subarachnoid hemorrhage or meningitis she is stable for discharge return if worsening. Discharge Plan Discharge Patient Disposition: Home Clinical Impression: Headache, Hypertension Condition: Stable Prescriptions: New Norvasc 5 mg tablet 5 mg PO DAILY Qty: 30 0RF No Action (DME) Sole Supports See Rx Instructions .ROUTE .MEDSUPPLY Qty: 1 0RF Rx Instructions: As directed tizanidine [Zanaflex] 2 mg capsule 2 mg PO BID PRN (Reason: back spasm) atorvastatin 40 mg tablet 40 mg PO DAILY venlafaxine 75 mg capsule,extended release 24hr 75 mg PO DAILY rizatriptan 10 mg tablet 10 mg PO Q2H PRN (Reason: Migraine Headache) Rx Instructions: do not exceed 3 doses per 24 hrs ferrous sulfate [Feosol] 325 mg (65 mg iron) tablet 325 mg PO DAILY omeprazole 20 mg capsule,delayed release(DR/EC) 20 mg PO DAILY folic acid 1 mg tablet 1 mg PO DAILY cholecalciferol (vitamin D3) 50 mcg (2,000 unit) tablet 10,000 unit PO DAILY mecobalamin (vitamin B12) 5,000 mcg tablet,chewable 5,000 mcg PO DAILY methotrexate sodium 2.5 mg tablet 2.5 mg PO DAILY Rx Instructions: x4 weekly oxybutynin chloride 5 mg tablet extended release 24hr 5 mg PO DAILY cephalexin 500 mg capsule 500 mg PO QID 10 Days Qty: 40 0RF hydrocodone-acetaminophen 10-325 mg tablet 1 tab PO Q6H PRN (Reason: pain) 5 Days Qty: 20 0RF mupirocin 2 % ointment 1 applic topical BID 14 Days Qty: 22 2RF naproxen sodium [Aleve] 220 mg Capsule 220 mg PO BID PRN (Reason: Inflammation) Hold Instructions: Resume on 07/27/22. Zyrtec 10 mg capsule 10 mg PO DAILY hydrocodone-acetaminophen 5-325 mg tablet 1 tab PO Q6H PRN (Reason: pain) Qty: 20 0RF Colace 100 mg capsule 100 mg PO BID Qty: 14 0RF Discharge Orders: Discharge ED (Routine); Ordered 08/09/22 Ordered By: Lonny Burgess Referrals: Ira Rosa DO [Primary Care Provider] - 1-3 days Discharge Diet: Advance as tolerated Discharge Activity: Resume usual activity Patient Instructions: Migraine Headache (ED) Coding Level of Care Code ED [employer]
[2022-08-09] MEDS: diphenhydrAMINE 50 mg/mL SDV 1mL IVP (16:04)
[2022-08-09] MEDS: ketorolac 30 mg/mL INJ 15 MG IVP (16:04)
[2022-08-09] MEDS: metoclopramide 5 mg/mL SDV 2 mL 10 MG IVP (16:05)
[2022-08-09 17:02] VITALS: BP 166/97; PULSE 93; RESP 16; O2SAT 98
== END 2022-08-09 17:03 | disposition home or self-care (01) ==
PROVIDERS: Emergency Provider Emergency Medicine; PCP Family Medicine
DX: R51.9 Headache, unspecified (principal); I10 Essential (primary) hypertension; Z77.22 Contact with and (suspected) exposure to environmental tobacco smoke (acute) (chronic)
CPT/HCPCS: 96374; 96375; 99284; J1200; J1885; J2765

== ENCOUNTER 2022-08-18 16:53 | Outpatient (CLI) | payer OTHER, MEDICAID, SELFPAY ==
--- NOTE | 2022-08-18 | XR_ITS ---
WS: [id number] XR hip LT 2-3V wo/w pel* [id number] REASON FOR EXAM: LEFT HIP PAIN FINDINGS: No fracture or focal bone lesion. Minimal narrowing of the joint space. Mild subchondral sclerosis with moderate osteophytosis of the a cetabulum. There is also osteophytosis of the femoral head. XR/XR hip LT 2-3V wo/w pel* [id number] IMPRESSION: Moderate osteoarthritis of the left hip. Significant for age.
--- NOTE | 2022-08-18 | XR_ITS ---
WS: [id number] XR lumbar spine 2-3V* [id number] REASON FOR EXAM: LOW BACK PAIN FINDINGS: Relatively normal lumbar curvatures. No focal vertebral body abnormality. Intervertebral disc spaces are intact with mild narrowing of the L5-S1 disc space. No spondylolysis. No significant spondylolisthesis. Examination is unchanged compared 05/26/2021. XR/XR lumbar spine 2-3V* [id number] IMPRESSION: Degenerative spondylosis of the lumbar spine as above.
== END 2022-08-18 16:54 | disposition home or self-care (01) ==
LOC: RAD 16:56
PROVIDERS: PCP Family Medicine; Visit Provider Nurse Practitioner Family
DX: M54.42 Lumbago with sciatica, left side (principal); M47.816 Spondylosis without myelopathy or radiculopathy, lumbar region; M16.12 Unilateral primary osteoarthritis, left hip
CPT/HCPCS: 72100; 73502

== ENCOUNTER 2022-09-19 09:56 | Day surgery (SDC) | payer OTHER, MEDICAID, SELFPAY ==
[2022-09-16 10:58] VITALS: BMI 44.1
[2022-09-19] VITALS (11 sets, daily range): BP systolic 139–174; BP diastolic 94–116; PULSE 82–106; RESP 16–18; TEMP 36.1–36.6; O2SAT 90–100
[2022-09-19 10:21] LABS: OR HCG Qualitative Urine Negative (Negative)
[2022-09-19] MEDS: sodium chloride 0.9% 1,000 ML 30 ML IV (10:32)
--- NOTE | 2022-09-19 10:39 | PM.HP ---
Providers/Chief Complaint Primary Care Provider: Ira Rosa DO Chief Complaint: 79967 N.63.0 History of Present Illness Gayle Geronimo is a 37 year old female Medications/Allergies Home Medications Medication Instructions Recorded Confirmed Last Taken Type Sole Supports #1 ea 03/13/20 08/26/22 07/24/22 Rx tizanidine 2 mg capsule (Zanaflex) 2 mg PO BID PRN back spasm 11/19/20 09/16/22 07/24/22 History atorvastatin 40 mg tablet 40 mg PO DAILY 02/24/22 09/19/22 09/18/22 History cholecalciferol (vitamin D3) 50 10,000 unit PO DAILY 02/24/22 09/19/22 09/18/22 History mcg (2,000 unit) tablet ferrous sulfate 325 mg (65 mg 325 mg PO DAILY 02/24/22 09/19/22 09/18/22 History iron) tablet (Feosol) folic acid 1 mg tablet 1 mg PO DAILY 02/24/22 09/19/22 09/18/22 History mecobalamin (vitamin B12) 5,000 5,000 mcg PO DAILY 02/24/22 09/19/22 09/18/22 History mcg chewable tablet omeprazole 20 mg capsule,delayed 20 mg PO DAILY 02/24/22 09/19/22 09/18/22 History release rizatriptan 10 mg tablet 10 mg PO Q2H PRN Migraine Headache 02/24/22 09/16/22 07/24/22 History venlafaxine 75 mg capsule,extended 75 mg PO DAILY 02/24/22 09/16/22 07/24/22 History release 24 hr methotrexate sodium 2.5 mg tablet 2.5 mg PO DAILY 07/20/22 09/16/22 09/16/22 History cetirizine 10 mg capsule (Zyrtec) 10 mg PO DAILY 07/22/22 09/16/22 07/24/22 History naproxen sodium 220 mg capsule 220 mg PO BID PRN Inflammation 07/22/22 09/16/22 09/16/22 History (Aleve) hydrocodone 10 mg-acetaminophen 1 tab PO Q6H PRN pain 5 days #20 08/02/22 09/16/22 Unknown Rx 325 mg tablet tabs amlodipine 5 mg tablet (Norvasc) 10 mg PO DAILY 08/26/22 09/19/22 09/18/22 History gabapentin 100 mg capsule 300 mg PO DAILY 09/16/22 09/19/22 09/18/22 History Allergies Allergy/AdvReac Type Severity Reaction Status Date / Time adhesive tape Allergy Intermediate ALGY-Rash Verified 09/19/22 10:14 dermabond Allergy skin Uncoded 09/19/22 10:14 irratation hormons in control AdvReac migraine Uncoded 09/19/22 10:14 PFSH Acute PFSH: Medical History High risk medication use History of recurrent miscarriages Hypertrophy of tongue Immunization counseling Inflammatory arthritis Joint pain Left hip pain Onychodystrophy Positive DANIELA (antinuclear antibody) Sacroiliac inflammation Undifferentiated connective tissue disease Surgical History History of appendectomy History of cholecystectomy History of foot surgery 08/23/19ubtalor infusion repair tendon and extend Achilles tendon History of lumpectomy of right breast 07/25/22 Dr. Huerta History of toe surgery Postoperative state Family History Other Chronic kidney disease (CKD) Diabetes H/O scleroderma Hyperlipidemia Hypertension Lupus Rheumatoid arthritis Denies family history of CAD (coronary artery disease) Lung disease Cancer Stroke Social History Smoking and tobacco status: never smoked Second hand smoke exposure: Yes Alcohol intake: current Alcohol intake frequency: holidays/special occasions only Alcohol type: wine Substance/Drug Use: never Current occupational status: unemployed Vitals/I&O/Wt Last Vital Signs Temp 97.4 F L 09/19/22 10:23 Pulse 97 09/19/22 10:23 Resp 17 09/19/22 10:23 BP 174/116 09/19/22 10:23 Pulse Ox 100 09/19/22 10:23 O2 Del Method Room Air 09/19/22 10:23 A&P Assessment and plan (1) Breast mass: Plan Right breast lumpectomy and scar revision right breast Attestations Medical Necessity Statement*: HOME Coding Level of Care Code Acute Code for Chg Fwd Diagnoses Breast mass N63.0
--- NOTE | 2022-09-19 10:43 | ANES.PREANE2 ---
Pre-Anesthetic Assessment Height/Weight: Height 1.63 m Weight 116.573 kg Temp Pulse Resp BP Pulse Ox O2 Del Method 97.4 F L 97 17 174/116 100 Room Air 09/19/22 10:23 09/19/22 10:23 09/19/22 10:23 09/19/22 10:23 09/19/22 10:23 09/19/22 10:23 Operation Date: 09/19/22 11:30 Proposed Procedures p [id number] right breast lumpectomy and scar revision right breast N63.0(Right) - DO true Jewell Scar Revision(Right) - Jaden Huerta DO Familial anesthetic complications: None Was Beta Shanika taken within 24 hours: N/A Was Clonidine taken within 24 hours: N/A Last intake: Intake Last Liquid Date 09/18/22 Last Liquid Time 22:00 Last Solid Date 09/18/22 Last Solid Time 20:00 Social No alcohol and No tobacco Exam alert, oriented x 3, clear to auscultation bilaterally and regular rate & rhythm Airway Mallampati: Class IV Dentition: full CV/HEM Hypertension GI Gastroesophageal Reflux Disease Metabolic Hyperlipidemia and Morbid Obesity [facility] [place] [place] Rheumatoid Arthritis Anesthetic Plan ASA status: 3 Anesthesia: General Risk of > 500 ml blood loss (7ml/kg in children): No Medications/Allergies Home Medications Medication Instructions Recorded Confirmed Last Taken Type Sole Supports #1 ea 03/13/20 08/26/22 07/24/22 Rx tizanidine 2 mg capsule (Zanaflex) 2 mg PO BID PRN back spasm 11/19/20 09/16/22 07/24/22 History atorvastatin 40 mg tablet 40 mg PO DAILY 02/24/22 09/19/22 09/18/22 History cholecalciferol (vitamin D3) 50 10,000 unit PO DAILY 02/24/22 09/19/22 09/18/22 History mcg (2,000 unit) tablet ferrous sulfate 325 mg (65 mg 325 mg PO DAILY 02/24/22 09/19/22 09/18/22 History iron) tablet (Feosol) folic acid 1 mg tablet 1 mg PO DAILY 02/24/22 09/19/22 09/18/22 History mecobalamin (vitamin B12) 5,000 5,000 mcg PO DAILY 02/24/22 09/19/22 09/18/22 History mcg chewable tablet omeprazole 20 mg capsule,delayed 20 mg PO DAILY 02/24/22 09/19/22 09/18/22 History release rizatriptan 10 mg tablet 10 mg PO Q2H PRN Migraine Headache 02/24/22 09/16/22 07/24/22 History venlafaxine 75 mg capsule,extended 75 mg PO DAILY 02/24/22 09/16/22 07/24/22 History release 24 hr methotrexate sodium 2.5 mg tablet 2.5 mg PO DAILY 07/20/22 09/16/22 09/16/22 History cetirizine 10 mg capsule (Zyrtec) 10 mg PO DAILY 07/22/22 09/16/22 07/24/22 History naproxen sodium 220 mg capsule 220 mg PO BID PRN Inflammation 07/22/22 09/16/22 09/16/22 History (Aleve) hydrocodone 10 mg-acetaminophen 1 tab PO Q6H PRN pain 5 days #20 08/02/22 09/16/22 Unknown Rx 325 mg tablet tabs amlodipine 5 mg tablet (Norvasc) 10 mg PO DAILY 08/26/22 09/19/22 09/18/22 History gabapentin 100 mg capsule 300 mg PO DAILY 09/16/22 09/19/22 09/18/22 History Allergies Allergy/AdvReac Type Severity Reaction Status Date / Time adhesive tape Allergy Intermediate ALGY-Rash Verified 09/19/22 10:14 dermabond Allergy skin Uncoded 09/19/22 10:14 irratation hormons in control AdvReac migraine Uncoded 09/19/22 10:14 Current Medications Generic Name Dose Route Start Last Admin Trade Name Freq PRN Reason Stop Dose Admin Sodium Chloride 1,000 mls @ 30 mls/hr 09/19/22 10:15 09/19/22 10:32 Sodium Chloride 0.9% IV 09/20/22 10:14 30 mls/hr .Q24H JOSELITO Administration PFSH Anesthesia Medical History High risk medication use History of recurrent miscarriages Hypertrophy of tongue Immunization counseling Inflammatory arthritis Joint pain Left hip pain Onychodystrophy Positive DANIELA (antinuclear antibody) Sacroiliac inflammation Undifferentiated connective tissue disease Surgical History History of appendectomy History of cholecystectomy History of foot surgery 08/23/19ubtalor infusion repair tendon and extend Achilles tendon History of lumpectomy of right breast 07/25/22 Dr. Huerta History of toe surgery Postoperative state Family History Other Chronic kidney disease (CKD) Diabetes H/O scleroderma Hyperlipidemia Hypertension Lupus Rheumatoid arthritis Denies family history of CAD (coronary artery disease) Lung disease Cancer Stroke Social History Smoking and tobacco status: never smoked Second hand smoke exposure: Yes Alcohol intake: current Alcohol intake frequency: holidays/special occasions only Alcohol type: wine Substance/Drug Use: never Current occupational status: unemployed Data Anesthesia Cardiac Studies: No Data to Display
[2022-09-19] MEDS: ceFAZolin 2,000 MG in sodium chloride 0.9% (plus) 50 ML 100 MG IV (10:59)
[2022-09-19] MEDS: lidocaine-epi 2% 20 mL INJ INJECTION (11:25)
[2022-09-19] MEDS: labetalol 5 mg/mL SDV 20mL 100 MG (12:14)
--- NOTE | 2022-09-19 12:56 | ANE.PACU2 ---
Inpatient post-anesthesia follow up: Airway intact: Yes Vital signs: Temperature 98 F Pulse Rate 95 Respiratory Rate 16 Blood Pressure 158/94 Pulse Oximetry 94 Oxygen Delivery Me thod Room Air Oxygen Flow Rate 3 Fraction of Inspir ed Oxygen Hydration adequate: Yes Nausea and vomiting: Yes Pain level: 1 Mental status: Baseline
--- NOTE | 2022-09-19 16:18 | P.OP_ITS ---
Operative Report Date of procedure: September 19, 2022 Pre-op diagnosis: Right breast wound and right breast mass Post-op diagnosis: same Procedure done: Scar revision right breast and right breast lumpectomy Implants: None Specimens removed/disposition: Elliptical excision of wound and right breast lumpectomy Surgeon: Dr. Jaden Huerta, Anesthesia: General Estimated blood loss (mL): 5 Complications: None apparent Brief History: This very pleasant 37-year-old female who had an allergic reaction to Dermabond from a previous lumpectomy and has a rather large poorly healing wound at that site. She has an additional right breast lump just cephalad to this that she would like excised. The risks and benefits were explained and documented. Procedure: Patient was wheeled operative room placed on the OR table in supine position. The right breast was inspected prepped and draped in usual sterile fashion. Endotracheal ovation was achieved by the department anesthesia. A timeout was performed. All present were in agreement. 2% lidocaine with epinephrine was used to anesthetize the areas over the right breast lump at the 9 o'clock position and the chronic wound in the 10 o'clock position. A 15 blade scalpel was then used to make an elliptical excision of skin measuring 5.5 cm in length over the chronic wound. Dissection was carried down to the subcutaneous tissue with electrocautery. Specimens passed off. A 3 cm excision was then performed in a similar fashion at the 9 o'clock position over the breast mass. Electrocautery was then used to dissect down to a circumscribed mass which was removed in total. Hemostasis was achieved with electrocautery. Dermis was approximated with 3-0 Vicryl in an interrupted fashion. Skin was closed with 4- 0 Monocryl in a subcuticular running fashion. A light sterile bandage was applied. Patient tolerated procedure well.
== END 2022-09-19 13:20 | disposition home or self-care (01) ==
PROVIDERS: PCP Family Medicine; Visit Provider Surgery
PROC: (CPT 19120; principal; 2022-09-19 11:20)
PROC: (CPT 19301; 2022-09-19 11:20)
DX: T81.31XA Disruption of external operation (surgical) wound, not elsewhere classified, initial encounter (principal); T50.995S Adverse effect of other drugs, medicaments and biological substances, sequela; Y82.8 Other medical devices associated with adverse incidents; Y83.8 Other surgical procedures as the cause of abnormal reaction of the patient, or of later complication, without mention of misadventure at the time of the procedure; L90.5 Scar conditions and fibrosis of skin; N63.15 Unspecified lump in the right breast, overlapping quadrants; K21.9 Gastro-esophageal reflux disease without esophagitis; E78.5 Hyperlipidemia, unspecified; E66.01 Morbid (severe) obesity due to excess calories; Z68.41 Body mass index [BMI] 40.0-44.9, adult; Z79.899 Other long term (current) drug therapy
CPT/HCPCS: 19301; 19380; 81025; 84703; 88304; 88307; J0690; J1100; J1200; J2250; J2405; J2704; J3010; J3490; J7030

== ENCOUNTER 2022-10-04 11:32 | Day surgery (SDC) | payer OTHER, MEDICAID, SELFPAY ==
[2022-09-30 13:05] VITALS: BMI 44.1
[2022-09-30 13:29] LABS: Basophils # 0.1 10^3/uL (0.0-0.1); Basophils % 0.8 %; Eosinophils # 0.2 10^3/uL (0.0-0.8); Eosinophils % 1.6 %; Hematocrit 40.9 % (37.0-47.0); Hemoglobin 13.4 g/dL (11.5-15.3); Lymphocytes # 2.1 10^3/uL (0.8-4.8); Lymphocytes % 20.6 %; Mean Corpuscular HGB Conc 32.8 g/dL (30.0-36.0); Mean Corpuscular Hemoglobin 28.5 pg (28.0-34.0); Mean Corpuscular Volume 86.8 fl (81-99); Mean Platelet Volume 8.7 fL (7.4-10.4); Monocytes # 0.5 10^3/uL (0.2-0.9); Monocytes % 4.7 %; Neutrophils # 7.41 10^3/uL (1.8-7.7); Neutrophils % 71.9 %; Nucleated Red Blood Cells % 0 %; Platelet Count 406 10^3/cmm (130-400); Red Blood Count 4.71 10^6/uL (4.1-5.3); Red Cell Distribution Width 14.6 % (12.1-15.1); White Blood Count 10.3 10^3/uL (4.0-10.0)
[2022-09-30 13:38] LABS: Add Urine Microscopic? YES; Bilirubin Urine Neg (Negative); Blood Urine 3+ (Negative); Glucose Urine UA Norm (Normal); Ketones Urine 1+ (Negative); Leukocyte Esterase Urine Trace (Negative); Nitrate Urine Negative (Negative); Protein Urine Neg (Negative); Urine Appearance Clear (CLEAR); Urine Color Yellow (Yellow); Urobilinogen Urine 1 mg/dL (Negative); pH Urine 6 (5-7)
[2022-09-30 13:39] LABS: RBC Urine 0-4 /hpf (0-2); WBC Urine 0-4 /hpf (0-5)
[2022-09-30 13:40] LABS: Add Urine Culture? No; Amorphous Sediment Urine 2+ /hpf; Mucus Urine 3+ /hpf; Squamous Epithelial Cell Urine 0-4 /hpf (0-5)
[2022-09-30 13:46] LABS: Alanine Aminotransferase 16 U/L (0-33); Albumin Level 4.4 g/dL (3.5-5.2); Alkaline Phosphatase 107 U/L (35-105); Anion Gap 13.3 (5-19); Aspartate Amino Transferase 14 U/L (0-32); Blood Urea Nitrogen 14 mg/dL (6-20); Calcium 9.5 mg/dL (8.5-10.5); Carbon Dioxide 28 mmol/L (22-29); Chloride 104 mmol/L (98-107); Globulin 3.1 g/dL (1.3-4.6); Glomerular Filtration Rate 95.2 mL/min (90-130); Glucose 84 mg/dL (65-115); Osmolality Calculated 292 mOsm/kg (285-295); Potassium 4.3 mmol/L (3.5-5.1); Sodium 141 mmol/L (136-145); Total Bilirubin 0.3 mg/dL (0.15-1.2); Total Protein 7.5 g/dL (6.6-8.7)
--- NOTE | 2022-09-30 15:52 | ANES.PREANE2 ---
Pre-Anesthetic Assessment Height/Weight: Height 1.63 m Weight 116.573 kg Preop Diagnosis: Abnormal uterine bleeding, pelvic pain Operation Date: 10/04/22 13:25 Proposed Procedures p Hysteroscopy, dilation and curettage with Myosure [id number],N92.1(Not Applicable) - Christopher Vaz MD s Dilation And Curettage (D&C)(Not Applicable) - Christopher Vaz MD Familial anesthetic complications: none Was Beta Shanika taken within 24 hours: N/A Was Clonidine taken within 24 hours: N/A Social No alcohol and No tobacco Exam alert, oriented x 3, clear to auscultation bilaterally and regular rate & rhythm Airway Submandibular: within normal limits Cervical ROM: within normal limits Mallampati: Class II Dentition: chipped CV/HEM Anemia and Hypertension GI Gastroesophageal Reflux Disease Metabolic Hyperlipidemia and Morbid Obesity [facility] Rheumatoid Arthritis Neuropsych Headache Anesthetic Plan ASA status: 3 Anesthesia: General Medications/Allergies Home Medications Medication Instructions Recorded Confirmed Last Taken Type Sole Supports #1 ea 03/13/20 09/28/22 07/24/22 Rx tizanidine 2 mg capsule (Zanaflex) 2 mg PO BID PRN back spasm 11/19/20 09/30/22 09/30/22 History atorvastatin 40 mg tablet 40 mg PO DAILY 02/24/22 09/30/22 09/30/22 History cholecalciferol (vitamin D3) 50 10,000 unit PO DAILY 02/24/22 09/30/22 09/30/22 History mcg (2,000 unit) tablet ferrous sulfate 325 mg (65 mg 325 mg PO DAILY 02/24/22 09/30/22 09/30/22 History iron) tablet (Feosol) folic acid 1 mg tablet 1 mg PO DAILY 02/24/22 09/30/22 09/30/22 History mecobalamin (vitamin B12) 5,000 5,000 mcg PO DAILY 02/24/22 09/30/22 09/30/22 History mcg chewable tablet omeprazole 20 mg capsule,delayed 20 mg PO DAILY 02/24/22 09/30/22 09/30/22 History release rizatriptan 10 mg tablet 10 mg PO Q2H PRN Migraine Headache 02/24/22 09/30/22 07/24/22 History venlafaxine 75 mg capsule,extended 75 mg PO DAILY 02/24/22 09/30/22 09/30/22 History release 24 hr methotrexate sodium 2.5 mg tablet 2.5 mg PO DAILY 07/20/22 09/30/22 09/30/22 History cetirizine 10 mg capsule (Zyrtec) 10 mg PO DAILY 07/22/22 09/30/22 07/24/22 History naproxen sodium 220 mg capsule 220 mg PO BID PRN Inflammation 07/22/22 09/30/22 09/30/22 History (Aleve) amlodipine 5 mg tablet (Norvasc) 10 mg PO DAILY 08/26/22 09/30/22 09/30/22 History hydrocodone 10 mg-acetaminophen 1 tab PO Q6H PRN pain #20 tabs 09/19/22 09/30/22 Unknown Rx 325 mg tablet Allergies Allergy/AdvReac Type Severity Reaction Status Date / Time adhesive tape Allergy Intermediate ALGY-Rash Verified 09/30/22 13:02 dermabond Allergy skin Uncoded 09/28/22 15:19 irratation hormons in control AdvReac migraine Uncoded 09/28/22 15:19 PFSH Anesthesia Medical History High risk medication use History of recurrent miscarriages Hypertrophy of tongue Immunization counseling Inflammatory arthritis Joint pain Left hip pain Onychodystrophy Positive DANIELA (antinuclear antibody) Sacroiliac inflammation Undifferentiated connective tissue disease Surgical History History of appendectomy History of cholecystectomy History of foot surgery 08/23/19ubtalor infusion repair tendon and extend Achilles tendon History of lumpectomy of right breast 07/25/22 Dr. Huerta History of toe surgery Postoperative state Family History Other Chronic kidney disease (CKD) Diabetes H/O scleroderma Hyperlipidemia Hypertension Lupus Rheumatoid arthritis Denies family history of CAD (coronary artery disease) Lung disease Cancer Stroke Social History Smoking and tobacco status: never smoked Second hand smoke exposure: Yes Alcohol intake: current Alcohol intake frequency: holidays/special occasions only Alcohol type: wine Substance/Drug Use: never Current occupational status: unemployed Female Reproductive History Date of last menstrual period: 09/26/22 Data Anesthesia 09/30/22 13:20 09/30/22 13:20 Short CBC 09/30/22 Range/Units 13:20 WBC 10.3 H (4.0-10.0) 10^3/uL Hgb 13.4 (11.5-15.3) g/dL Hct 40.9 (37.0-47.0) % MCV 86.8 (81-99) fl Plt Count 406 H (130-400) 10^3/cmm Neut % (Auto) 71.9 % Neut # (Auto) 7.41 (1.8-7.7) 10^3/uL BMP 09/30/22 13:20 Sodium 141 Potassium 4.3 Chloride 104 Carbon Dioxide 28 BUN 14 Creatinine 0.7 Glucose 84 Calcium 9.5 Liver Function 09/30/22 Range/Units 13:20 Total Bilirubin 0.3 (0.15-1.2) mg/dL AST 14 (0-32) U/L ALT 16 (0-33) U/L Alkaline Phosphatase 107 H (35-105) U/L Albumin 4.4 (3.5-5.2) g/dL Urine 09/30/22 Range/Units 12:58 Urine Color Yellow (Yellow) Urine Appearance Clear (CLEAR) Urine pH 6 (5-7) Ur Specific Reagan 1.020 (1.005-1.030) Urine Protein Neg (Negative) Urine Glucose (UA) Norm (Normal) Urine Ketones 1+ H (Negative) Urine Nitrate Negative (Negative) Urine Bilirubin Neg (Negative) Ur Leukocyte Esterase Trace H (Negative) Urine RBC 0-4 H (0-2) /hpf Urine WBC 0-4 H (0-5) /hpf Cardiac Studies: No Data to Display
[2022-10-04 11:56] VITALS: BP 154/107; PULSE 89; RESP 16; TEMP 36.6; O2SAT 97
[2022-10-04] MEDS: sodium chloride 0.9% 1,000 ML 30 ML IV (12:46)
--- NOTE | 2022-10-04 12:51 | W.PM.OPSUD ---
Surgery/Procedure H&P Update DATE OF PROCEDURE: October 04, 2022 DATE H&P PERFORMED: 09/26/22 H&P UPDATE INFORMATION: I have reviewed H&P completed within last 30 days, I have examined patient prior to procedure and No changes to prior documentation PREOP DIAGNOSIS: Abnormal uterine bleeding, pelvic pain PLANNED PROCEDURE: Operation Date: 10/04/22 13:15 Proposed Procedures p Hysteroscopy, dilation and curettage with Myosure [id number],N92.1(Not Applicable) - Christopher Vaz MD s Dilation And Curettage (D&C)(Not Applicable) - Christopher Vaz MD
[2022-10-04] MEDS: ceFAZolin 3,000 MG in sodium chloride 0.9% (100 ml) 100 ML 200 MG IV (13:05)
--- NOTE | 2022-10-04 13:24 | P.ANESUD_ITS ---
Pre-Anesthetic Update Pre-Anesthetic Assessment: Date of Surgery/Procedure: 10/04/22 Preop Dyan gnosis: Abnormal uterine bleeding, pelvic pain Proposed Procedure: Operation Date: 10/04/22 13:15 Proposed Procedures p Hysteroscopy, dilation and curettage with Myosure [id number],N92.1(Not Applicable) - Christopher Vaz MD s Dilation And Curettage (D&C)(Not Applicable) - Christopher Vaz MD Any changes to Pre-Anesthetic Assessment?: No Last Intake: Intake Last Liquid Date 10/03/22 Last Liquid Time 22:00 Last Solid Date 10/03/22 Last Solid Time 19:30 Vitals: Temperature 97.8 F 10/04/22 11:56 Temperature Source Temporal Artery S can 10/04/22 11:56 Pulse Rate 89 10/04/22 11:56 Respiratory Rate 16 10/04/22 11:56 Blood Pressure 154/107 10/04/22 11:56 Blood Pressure Jazzmine n 122 10/04/22 11:56 Pulse Oximetry 97 10/04/22 11:56 Oxygen Delivery Me thod Room Air 10/04/22 11:57 Exam: Pre-Anes Outpt Exam: alert, oriented x 3, clear to auscultation bilaterally and regular rate & rhythm Cardiac Studies: No Data to Display
[2022-10-04] MEDS: lidocaine-epi 2% 20 mL INJ INJECTION (13:35)
--- NOTE | 2022-10-04 13:41 | P.OP_ITS ---
Operative Report Date of procedure: October 04, 2022 Pre-op diagnosis: Preop Diagnosis Abnormal uterine bleeding, pelvic pain Post-op diagnosis: Same as above Procedure done: Hysteroscopy with dilation and curettage via MyoSure Specimens removed/disposition: Endometrial curetting Surgeon: Christopher Vaz MD Estimated blood loss (mL): 10 IV fluids (mL): 200 Procedure: After informed consent, the risks included but were not limited to bleeding, infection, injury to internal organs. The patient was counseled on a possible laparotomy and on the potential need for hysterectomy. The patient expressed understanding of the risks involved, all questions were answered, and the patient consented to the procedure. The patient was taken to the operating room where general anesthesia was administered. She was placed in the dorsal lithotomy position and prepped and draped in sterile fashion. A time out procedure was performed. The patient was examined under anesthesia and found to have a normal uterus with normal adnexa. A sterile weight speculum was placed in the vagina. The uterus was then gently sounded to 8 cm, and the cervix was dilated. The 0 degrees MyoSure hysteroscope was advanced gently to the uterine fundus while visualizing the monitor. Survey of the uterine cavity showed: Proliferative endometrium, the fundus shows normal proliferative endometrium; left ostium was visualized, and lateral wall with proliferative endometrium; right ostium visualized, and lateral wall with proliferative endometrium; anterior and posterior romo are with proliferative endometrium; endocervical canal is normal. The MyoSure device was advanced and the direct visualization the endo metrium was morcellated without complication. At the end of morcellation the fluid deficit was 270 mL and was estimated at approximately 100 mL were on the floor. There was minimal bleeding noted and the tenaculum removed with goad hemostasis noted. The patient tolerated the procedure well. The patient was taken to the recovery area in stable condition.
[2022-10-04 13:48] VITALS: BP 150/71; PULSE 115; RESP 20; TEMP 36.1; O2SAT 97
[2022-10-04 14:00] VITALS: BP 143/74; PULSE 109; RESP 21; TEMP 36.1; O2SAT 97
[2022-10-04 14:05] VITALS: BP 149/80; PULSE 100; RESP 20; TEMP 36.1; O2SAT 93
[2022-10-04 14:30] VITALS: BP 142/82; PULSE 100; RESP 18; TEMP 36.1; O2SAT 94
--- NOTE | 2022-10-04 14:53 | ANE.PACU2 ---
Inpatient post-anesthesia follow up: Airway intact: Yes Vital signs: Temperature 97 F Pulse Rate 100 Respiratory Rate 18 Blood Pressure 142/82 Pulse Oximetry 94 Oxygen Delivery Me thod Room Air Oxygen Flow Rate Fraction of Inspir ed Oxygen Hydration adequate: Yes Nausea and vomiting: No Pain level: 2 Mental status: Baseline
[2022-10-05 11:37] LABS: OR HCG Qualitative Urine Negative (Negative)
== END 2022-10-04 14:35 | disposition home or self-care (01) ==
PROVIDERS: Anesthesiology; PCP Family Medicine; Visit Provider Obstetrics & Gynecology
PROC: 0UDB8ZZ Extraction of Endometrium, Via Natural or Artificial Opening Endoscopic (ICD-10-PCS; CPT 58558; principal; 2022-10-04 13:05)
PROC: (CPT 58120; 2022-10-04 13:05)
DX: N93.9 Abnormal uterine and vaginal bleeding, unspecified (principal); R10.2 Pelvic and perineal pain; I10 Essential (primary) hypertension; K21.9 Gastro-esophageal reflux disease without esophagitis; E78.5 Hyperlipidemia, unspecified; E66.01 Morbid (severe) obesity due to excess calories; Z68.41 Body mass index [BMI] 40.0-44.9, adult; M06.9 Rheumatoid arthritis, unspecified
CPT/HCPCS: 58558; 36415; 80053; 81001; 81025; 84703; 85025; 86850; 86900; 88305; J0690; J2704; J3010; J7030

== ENCOUNTER 2022-10-12 13:10 | Outpatient (RCR) | payer OTHER, MEDICAID, SELFPAY | END 2022-10-13 23:59 | disposition home or self-care (01) | LOC: SPT 13:10 | PROVIDERS: PCP Family Medicine; Visit Provider Family Medicine | DX: M25.552 Pain in left hip (principal); M54.50 Low back pain, unspecified; G89.29 Other chronic pain | CPT/HCPCS: 97161; 97530 ==

== ENCOUNTER 2022-10-14 06:00 | Outpatient (RCR) | payer OTHER, MEDICAID, SELFPAY | END 2022-11-01 23:59 | disposition home or self-care (01) | LOC: SPT 06:00 | PROVIDERS: PCP Family Medicine; Visit Provider Family Medicine | DX: M25.552 Pain in left hip (principal); M54.50 Low back pain, unspecified; G89.29 Other chronic pain | CPT/HCPCS: 97110 ==

== ENCOUNTER → 2022-11-17 08:29 | Outpatient (BNVA) | payer OTHER, MEDICAID, SELFPAY | PROVIDERS: PCP Family Medicine; Visit Provider Podiatrist Foot & Ankle Surgery | DX: M21.612 Bunion of left foot; M20.42 Other hammer toe(s) (acquired), left foot | CPT/HCPCS: 73630 ==

== ENCOUNTER 2023-01-10 09:19 | Observation (INO) | payer MEDICAID, SELFPAY ==
--- NOTE | 2023-01-02 13:28 | ANES.PREANE2 ---
Pre-Anesthetic Assessment Height/Weight: Height 1.63 m Preop Diagnosis: abnormal uterine bleeding, uterine fibroid Operation Date: 01/10/23 07:00 Proposed Procedures p Total vaginal hysterectomy 81981, N93.9(Not Applicable) - Christopher Vaz MD Familial anesthetic complications: none Was Beta Shanika taken within 24 hours: N/A Was Clonidine taken within 24 hours: N/A Social No alcohol and No tobacco Exam alert, oriented x 3, clear to auscultation bilaterally and regular rate & rhythm Airway Submandibular: within normal limits Cervical ROM: within normal limits Mallampati: Class II Dentition: chipped CV/HEM Anemia and Hypertension GI Gastroesophageal Reflux Disease Metabolic Morbid Obesity Musc/skel Lower Back Pain, Osteoarthritis/DJD and Rheumatoid Arthritis Neuropsych Headache Anesthetic Plan ASA status: 3 Anesthesia: General Medications/Allergies Home Medications Medication Instructions Recorded Confirmed Last Taken Type Sole Supports #1 ea 03/13/20 01/02/23 07/24/22 Rx tizanidine 2 mg capsule (Zanaflex) 2 mg PO BID PRN back spasm 11/19/20 01/02/23 09/30/22 History atorvastatin 40 mg tablet 40 mg PO DAILY 02/24/22 01/02/23 01/02/23 History cholecalciferol (vitamin D3) 50 10,000 unit PO DAILY 02/24/22 01/02/23 01/02/23 History mcg (2,000 unit) tablet ferrous sulfate 325 mg (65 mg 325 mg PO DAILY 02/24/22 01/02/23 01/02/23 History iron) tablet (Feosol) folic acid 1 mg tablet 1 mg PO DAILY 02/24/22 01/02/23 01/02/23 History omeprazole 20 mg capsule,delayed 20 mg PO DAILY 02/24/22 01/02/23 01/02/23 History release rizatriptan 10 mg tablet 10 mg PO Q2H PRN Migraine Headache 02/24/22 01/02/23 07/24/22 History venlafaxine 75 mg capsule,extended 75 mg PO DAILY 02/24/22 01/02/23 12/31/22 History release 24 hr (Effexor XR) methotrexate sodium 2.5 mg tablet 2.5 mg PO DAILY 07/20/22 01/02/23 01/02/23 History cetirizine 10 mg capsule (Zyrtec) 10 mg PO DAILY 07/22/22 01/02/23 01/02/23 History naproxen sodium 220 mg capsule 220 mg PO BID PRN Inflammation 07/22/22 01/02/23 01/02/23 History (Aleve) amlodipine 5 mg tablet (Norvasc) 10 mg PO DAILY 08/26/22 01/02/23 01/02/23 History acetaminophen 325 mg capsule 325 mg PO Q4H PRN fever or 10/04/22 01/02/23 Unknown Rx postoperative pain #60 caps Allergies Allergy/AdvReac Type Severity Reaction Status Date / Time adhesive tape Allergy Intermediate ALGY-Rash Verified 01/02/23 12:53 dermabond Allergy skin Uncoded 01/02/23 12:53 irratation hormons in control AdvReac migraine Uncoded 01/02/23 12:53 PFSH Anesthesia Medical History High risk medication use History of recurrent miscarriages Hypertrophy of tongue Immunization counseling Inflammatory arthritis Joint pain Left hip pain Onychodystrophy Positive DANIELA (antinuclear antibody) Sacroiliac inflammation Undifferentiated connective tissue disease Surgical History History of appendectomy History of cholecystectomy History of foot surgery 08/23/19ubtalor infusion repair tendon and extend Achilles tendon History of hysteroscopy (~10/04/22) Hysteroscopy D&C via Myosure. Performed by Milind TOSCANO for AUB and PP. History of lumpectomy of right breast 07/25/22 Dr. Huerta History of toe surgery Postoperative state Family History Other Chronic kidney disease (CKD) Diabetes H/O scleroderma Hyperlipidemia Hypertension Lupus Rheumatoid arthritis Denies family history of CAD (coronary artery disease) Lung disease Cancer Stroke Social History Smoking and tobacco/nicotine status: never used tobacco/nicotine Second hand smoke exposure: Yes Alcohol intake: current Alcohol intake frequency: holidays/special occasions only Data Anesthesia Cardiac Studies: No Data to Display
[2023-01-02 14:58] LABS: Basophils # 0.1 10^3/uL (0.0-0.1); Basophils % 0.6 %; Eosinophils # 0.1 10^3/uL (0.0-0.8); Eosinophils % 1.3 %; Hematocrit 43.7 % (36-47); Lymphocytes # 1.7 10^3/uL (0.8-4.8); Lymphocytes % 16.3 %; Mean Corpuscular HGB Conc 32.5 g/dL (30-55); Mean Corpuscular Hemoglobin 27.6 pg (27-33); Mean Corpuscular Volume 84.9 fl (85-98); Monocytes # 0.6 10^3/uL (0.2-0.9); Monocytes % 5.4 %; Neutrophils # 8.09 10^3/uL (1.8-7.7); Neutrophils % 76.1 %; Nucleated Red Blood Cells % 0 %; Platelet Count 363 10^3/cmm (157-399); Red Blood Count 5.15 10^6/uL (3.85-5.65); Red Cell Distribution Width 13.5 % (12.1-15.1); White Blood Count 10.62 10^3/uL (3.29-11.43)
[2023-01-02 15:15] LABS: Alanine Aminotransferase 14 U/L (0-33); Albumin Level 4.2 g/dL (3.5-5.2); Alkaline Phosphatase 94 U/L (35-105); Aspartate Amino Transferase 13 U/L (0-32); Blood Urea Nitrogen 8 mg/dL (6-20); Calcium 9.4 mg/dL (8.5-10.5); Carbon Dioxide 25 mmol/L (22-29); Chloride 101 mmol/L (98-107); Globulin 3.5 g/dL (1.3-4.6); Glomerular Filtration Rate 81.6 mL/min (90-130); Glucose 106 mg/dL (65-115); Osmolality Calculated 285 mOsm/kg (285-295); Sodium 138 mmol/L (136-145); Total Bilirubin 0.3 mg/dL (0.15-1.2); Total Protein 7.7 g/dL (6.6-8.7)
[2023-01-02 15:17] LABS: Anion Gap 15.6 (5-19); Potassium 3.6 mmol/L (3.5-5.1)
[2023-01-02 15:56] LABS: Add Urine Microscopic? YES; Bilirubin Urine Neg (Negative); Blood Urine 3+ (Negative); Glucose Urine UA Norm (Normal); Ketones Urine 1+ (Negative); Leukocyte Esterase Urine 1+ (Negative); Nitrate Urine Negative (Negative); OR HCG Qualitative Urine Negative (Negative); Protein Urine Neg (Negative); Specific Gravity, Urine 1.015 (1.005-1.030); Urine Appearance Hazy (CLEAR); Urine Color Yellow (Yellow); Urobilinogen Urine Norm (Negative); pH Urine 5 (5-7)
[2023-01-02 15:58] LABS: Add Urine Culture? Yes; Bacteria Urine TRACE /hpf; RBC Urine 25-40 /hpf (0-2)
[2023-01-02 16:31] LABS: Slide Review Slide Review Perform
[2023-01-10] VITALS (27 sets, daily range): BP systolic 99–178; BP diastolic 63–115; PULSE 72–120; RESP 15–19; TEMP 36.2–36.8; O2SAT 96–100; BMI 42.7
[2023-01-10] MEDS: sodium chloride 0.9% 500 ML 999 ML (06:22)
[2023-01-10] MEDS: enoxaparin 30 mg/0.3 mL Syringe (06:30)
[2023-01-10] MEDS: ceFAZolin 3,000 MG in sodium chloride 0.9% (plus) 100 ML 200 MG IV (07:19)
[2023-01-10] MEDS: lidocaine-epi 2% 20 mL INJ INJECTION (08:52)
--- NOTE | 2023-01-10 08:52 | PM.OP ---
Operative Report Date of procedure: January 10, 2023 Pre-op diagnosis: Abnormal uterine bleeding Fibroid uterus Post-op diagnosis: Same Post-op findings: Enlarged Procedure done: Total vaginal hysterectomy Specimens removed/disposition: Uterus Surgeon: Christopher Vaz MD Estimated blood loss (mL): 200 IV fluids (mL): 500 Urine output (mL): 300 Procedure: After informed consent and risks, benefits, indications and alternatives reviewed with the patient was taken to the operating room. The patient was placed in dorsal lithotomy position prepped, and draped in the usual sterile fashion. The pre-procedure timeout verifying the correct patient, procedure, site and side, could not requirements was performed and acknowledge by the OR team. A Simmons catheter was placed. A Bookwalter vaginal retractor was placed into the vagina in usual manner visualize the cervix. Cervix was grasped with a single tooth tenaculum and circumferentially infiltrated with 2% lidocaine with epinephrine. Then cervix was circumferentially incised with bovie and the bladder was dissected off the pubovesical cervical fascia anteriorly with a sponge stick and Metzenbaum scissors. The anterior peritoneal reflection was identified and the anterior cul-de-sac was entered sharply with Metzenbaum scissors. The same procedure was performed posteriorly and a posterior colpotomy was made through the posterior cul-de-sac space without difficulty and the posterior blade of the Bookwalter vaginal retractor was advanced posteriorly into the cul-de-sac. At this time, the left and right uterosacral ligaments were isolated and ligated with 0 Vicryl. The LigaSure device was placed over the uterosacral ligaments on either side and was then used in a serial fashion up through the cardinal ligaments bilaterally cross-clamped, cut, and sealed with the LigaSure device. Finally, the uterine arteries were cross-clamped, cut, sealed and ligated with the LigaSure device. Hemostasis was assured. The broad ligaments were then serially clamped, sealed and cut with the LigaSure were device on both sides. Excellent hemostasis was visualized. Both cornua were clamped, sealed and cut with the LigaSure device. Then the pedicles were then suture ligated with excellent hemostasis. The uterus was excised and submitted for pathologic evaluation. No other abnormalities were noted in the pelvic cavity. Good hemostasis was assure on both sides. The peritoneum was then closed in a pursestring fashion with 0 Vicryl suture. The vaginal cuff angles were closed with [id number] #0 Vicryl suture on both sides and transfixed with the ipsilateral cardinal and uterosacral ligaments. The remainder of the vaginal cuff was closed with #0 Vicryl in a running locked fashion. At this time, instruments were removed from the vagina at hemostasis assured. Simmons catheter was noted yielding clear blue urine. The patient was taken out of dorsal lithotomy position and awakened from the general anesthesia. The patient tolerated the procedure well and was taken to the PACU recovery room in a stable condition. Sponge, lap, needle and instruments counts were correct x3.
--- NOTE | 2023-01-10 10:00 | ANE.PACU2 ---
Inpatient post-anesthesia follow up: Airway intact: Yes Vital signs: Temperature 97.7 F Pulse Rate 93 Respiratory Rate 17 Blood Pressure 115/76 Pulse Oximetry 97 Oxygen Delivery Me thod Room Air Oxygen Flow Rate 6 Fraction of Inspir ed Oxygen Hydration adequate: Yes Nausea and vomiting: No Pain level: 1 Mental status: Baseline
--- NOTE | 2023-01-10 10:13 | PC.NURSE ---
Pt received to OB-10 from OR via stretcher. Pt moved self from stretcher to bed. Vitals WNL. Pain controlled. Oriented to room/call light. Instructed not to try to get up out of bed without nursing assistance. Visitors into room. Denies further needs at this time.
[2023-01-10] MEDS: dextrose 5%-lactated ringers 1,000 ML 125 ML IV ×2 (11:25→16:37)
[2023-01-10] MEDS: ferrous sulfate EC 325 mg Tablet PO (11:53)
[2023-01-10] MEDS: amlodipine 5 mg Tablet 10 MG PO (11:53)
[2023-01-10] MEDS: folic acid 1 mg Tablet PO (11:53)
[2023-01-10] MEDS: atorvastatin 40 mg Tablet PO (11:53)
[2023-01-10] MEDS: docusate sodium 100 mg Capsule PO ×2 (11:53→18:41)
[2023-01-10] MEDS: venlafaxine ER (24HR) 75 mg Capsule PO (11:53)
[2023-01-10] MEDS: HYDROcodone-acetaminophen 5-325 mg Tablet PO (12:26)
--- NOTE | 2023-01-10 14:50 | PC.NURSE ---
Addendum entered by Bridget Huntley RN 01/10/23 14:53: Pt had some vaginal bleeding noted to chux pad. [id number] oval noted on chux pad. No active bleeding noted. Original Note: Pt up to chair at bedside. Pt got up well, but did complain of feeling dizzy/light headed, hot, and some ringing in ears. Blood pressure taken and 99/63, heart rate 98. Pt in recliner, feet up. IV bolus started. Pt states feeling better with this.
--- NOTE | 2023-01-10 16:15 | PC.NURSE ---
Pt back into bed without assistance. Denies feeling dizzy/light headed/hot/ears ringing this time. SCDs back on and ice water given.
[2023-01-10] MEDS: ketorolac 30 mg/mL INJ IVP ×2 (16:37→22:48)
[2023-01-11] MEDS: ketorolac 30 mg/mL INJ IVP (05:04)
[2023-01-11 05:28] LABS: Hematocrit 30.4 % (36-47); Mean Corpuscular HGB Conc 32.6 g/dL (30-55); Mean Corpuscular Hemoglobin 28.3 pg (27-33); Mean Corpuscular Volume 86.9 fl (85-98); Platelet Count 397 10^3/cmm (157-399); Red Cell Distribution Width 13.4 % (12.1-15.1); White Blood Count 12.69 10^3/uL (3.29-11.43)
[2023-01-11 05:50] VITALS: BP 139/84; PULSE 99; RESP 16; TEMP 37; O2SAT 94
[2023-01-11 06:00] VITALS: BMI 42.7
--- NOTE | 2023-01-11 08:55 | P.DS_ITS ---
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 Geronimo is a 37 year old with a history of uterine fibroid and abnormal uterine bleeding unresponsive to medical management was admitted for planned total vaginal hysterectomy. The total vaginal hysterectomy was performed without complication. Overnight observation was uneventful. She is ambulating without difficulty. Tolerating diet well. Adequate urine output. Pain well under control. She is afebrile and hemodynamically stable postoperative day 1. She was counseled regarding pelvic rest for 6 weeks (no sex, no tampons, no vaginal douches). Return to the emergency room if any fever, increased bleeding or pain. Physical Exam Narrative: GA: Alert and oriented ?3. HEENT: WNL. Heart: Regular rate and rhythm. Lungs: Clear to auscultation bilaterally. Abdomen: Bowel sounds present, nontender. 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 Extremities: No edema, no cyanosis, no calves pain. Urinary Catheter Management: Simmons: Cath Placed During This Visit: yes, but has since been removed by the nurse Reason for Continuing Indwelling Catheter: Decision to DC Catheter Urinary Catheter Date of Insertion: 01/10/23 Urinary Catheter Time of Insertion: 07:52 Date Urinary Catheter Removed: 01/11/23 Time Urinary Catheter Discontinued: 05:25 History History History 16 Term 0 1 Miscarriages/Ectopic 15 Living Children 1 Discharge Data Studies Completed and Pending Pending at discharge Category Date Time Status Pathology: Surgical [PTH] Routine Pth 01/10/23 08:44 Received Laboratory Results WBC 12.69 10^3/uL (3.29-11.43) H 01/11/23 05:13 RBC 3.50 10^6/uL (3.85-5.65) L 01/11/23 05:13 Hgb 9.90 g/dL (11.27-16.99) L 01/11/23 05:13 Hct 30.4 % (36-47) L 01/11/23 05:13 MCV 86.9 fl (85-98) 01/11/23 05:13 MCH 28.3 pg (27-33) 01/11/23 05:13 MCHC 32.6 g/dL (30-55) 01/11/23 05:13 RDW 13.4 % (12.1-15.1) 01/11/23 05:13 Plt Count 397 10^3/cmm (157-399) 01/11/23 05:13 MPV 9.0 fL (7.4-10.4) 01/11/23 05:13 Neut % (Auto) 76.1 % 01/02/23 13:20 Lymph % (Auto) 16.3 % 01/02/23 13:20 [place] % (Auto) 5.4 % 01/02/23 13:20 Eos % (Auto) 1.3 % 01/02/23 13:20 Baso % (Auto) 0.6 % 01/02/23 13:20 Neut # (Auto) 8.09 10^3/uL (1.8-7.7) H 01/02/23 13:20 Lymph # (Auto) 1.7 10^3/uL (0.8-4.8) 01/02/23 13:20 [place] # (Auto) 0.6 10^3/uL (0.2-0.9) 01/02/23 13:20 Eos # (Auto) 0.1 10^3/uL (0.0-0.8) 01/02/23 13:20 Baso # (Auto) 0.1 10^3/uL (0.0-0.1) 01/02/23 13:20 Nucleated RBC % (auto) 0 % 01/02/23 13:20 Nucleated RBCs # 0.0 /100WBC 01/02/23 13:20 Sodium 138 mmol/L (136-145) 01/02/23 13:20 Potassium 3.6 mmol/L (3.5-5.1) 01/02/23 13:20 Chloride 101 mmol/L (98-107) 01/02/23 13:20 Carbon Dioxide 25 mmol/L (22-29) 01/02/23 13:20 Anion Gap 15.6 (5-19) 01/02/23 13:20 BUN 8 mg/dL (6-20) 01/02/23 13:20 Creatinine 0.8 mg/dL (0.5-0.9) 01/02/23 13:20 GFR Calculation 81.6 mL/min (90-130) L 01/02/23 13:20 Glucose 106 mg/dL (65-115) 01/02/23 13:20 Calculated Osmolality 285 mOsm/kg (285-295) 01/02/23 13:20 Calcium 9.4 mg/dL (8.5-10.5) 01/02/23 13:20 Total Bilirubin 0.3 mg/dL (0.15-1.2) 01/02/23 13:20 AST 13 U/L (0-32) 01/02/23 13:20 ALT 14 U/L (0-33) 01/02/23 13:20 Alkaline Phosphatase 94 U/L (35-105) 01/02/23 13:20 Total Protein 7.7 g/dL (6.6-8.7) 01/02/23 13:20 Albumin 4.2 g/dL (3.5-5.2) 01/02/23 13:20 Globulin 3.5 g/dL (1.3-4.6) 01/02/23 13:20 Urine Color Yellow (Yellow) 01/02/23 13:07 Urine Appearance Hazy (CLEAR) A 01/02/23 13:07 Urine pH 5 (5-7) 01/02/23 13:07 Ur Specific [place] 1.015 (1.005-1.030) 01/02/23 13:07 Urine Protein Neg (Negative) 01/02/23 13:07 Urine Glucose (UA) Norm (Normal) 01/02/23 13:07 Urine Ketones 1+ (Negative) H 01/02/23 13:07 Urine Blood 3+ (Negative) H 01/02/23 13:07 Urine Nitrate Negative (Negative) 01/02/23 13:07 Urine Bilirubin Neg (Negative) 01/02/23 13:07 Urine Urobilinogen Norm mg/dL (Negative) 01/02/23 13:07 Ur Leukocyte Esterase 1+ (Negative) H 01/02/23 13:07 Urine RBC 25-40 /hpf (0-2) H 01/02/23 13:07 Urine WBC 5-10 /hpf (0-5) H 01/02/23 13:07 Ur Squamous Epith Cells 5-10 /hpf (0-5) H 01/02/23 13:07 Amorphous Sediment Not Reportable 01/02/23 13:07 Urine Bacteria Trace /hpf (NONE) 01/02/23 13:07 Urine HCG, Qual Negative (Negative) 01/02/23 13:07 Blood Type O Negative 01/10/23 07:52 Rho(D) Type Negative 01/10/23 07:52 Antibody Screen Negative 01/10/23 07:52 Vitals Last Vital Signs Temp 98.6 F 01/11/23 05:50 Pulse 99 01/11/23 05:50 Resp 16 01/11/23 05:50 BP 139/84 01/11/23 05:50 Pulse Ox 94 01/11/23 05:50 O2 Del Method Nasal Cannula 01/11/23 05:50 O2 Flow Rate 4 01/11/23 05:50 Results Labs OB ([facility]): Blood Type O Negative 01/10/23 Antibody Screen Negative 01/10/23 Hct 30.4 % (36-47) L 01/11/23 Hgb 9.90 g/dL (11.27-16.99) L 01/11/23 Rho(D) Type Negative 01/10/23 Plt Count 397 10^3/cmm (157-399) 01/11/23 Hep Bs Antigen Non-reactive (Nonreactive) 09/24/19 Hep B Core Total Ab Non-reactive (Nonreactive) 09/24/19 Hep Bs Antibody 239.6 (11.5-1000) 02/17/21 Hepatitis C Antibody Non-reactive (Nonreactive) 09/24/19 Rubella IgG Antibody 90.8 IU/mL (0.0-10.0) H 02/17/21 VZV IgG Antibody 605.00 index 02/17/21 Micro Urine Specimen 01/02/23 Discharge Plan Discharge Patient Disposition: Home Condition: Stable Prescriptions: New hydrocodone-acetaminophen 5-325 mg tablet 1 tab PO Q4H PRN (Reason: pain) Qty: 20 0RF acetaminophen 325 mg capsule 325 mg PO Q4H PRN (Reason: fever or postoperative pain) Qty: 60 0RF docusate sodium [Colace] 100 mg capsule 100 mg PO BID Qty: 60 0RF ibuprofen 800 mg tablet 800 mg PO TID PRN (Reason: pain) Qty: 60 0RF ferrous sulfate [Iron (ferrous sulfate)] 325 mg (65 mg iron) tablet 325 mg PO BID Qty: 60 0RF Continued (DME) Sole Supports See Rx Instructions .ROUTE .MEDSUPPLY Qty: 1 0RF Rx Instructions: As directed tizanidine [Zanaflex] 2 mg capsule 2 mg PO BID PRN (Reason: back spasm) atorvastatin 40 mg tablet 40 mg PO DAILY venlafaxine [Effexor XR] 75 mg capsule,extended release 24hr 75 mg PO DAILY rizatriptan 10 mg tablet 10 mg PO Q2H PRN (Reason: Migraine Headache) Rx Instructions: do not exceed 3 doses per 24 hrs ferrous sulfate [Feosol] 325 mg (65 mg iron) tablet 325 mg PO DAILY omeprazole 20 mg capsule,delayed release(DR/EC) 20 mg PO DAILY folic acid 1 mg tablet 1 mg PO DAILY cholecalciferol (vitamin D3) 50 mcg (2,000 unit) tablet 10,000 unit PO DAILY methotrexate sodium 2.5 mg tablet 2.5 mg PO DAILY Rx Instructions: weekly Norvasc 5 mg tablet 10 mg PO DAILY acetaminophen 325 mg capsule 325 mg PO Q4H PRN (Reason: fever or postoperative pain) Qty: 60 0RF naproxen sodium [Aleve] 220 mg Capsule 220 mg PO BID PRN (Reason: Inflammation) Hold Instructions: Resume on 07/27/22. Zyrtec 10 mg capsule 10 mg PO DAILY Discharge Orders: Discharge Order (Routine); Ordered 01/11/23 Ordered By: Christopher Vaz Referrals: Christopher Vaz MD [Physician] - 2 weeks Discharge Diet: Usual diet Discharge Activity: Limit activity as instructed Patient Instructions: Opioid Safety, Vaginal Hysterectomy (GEN) Activity Restrictions/Additional Instructions: 1. Please call [facility] on next working day to make your post-operative appointment in 2 weeks. 2. Please stay home until you come back to the clinic on first post- hospatilization check up. 3. Please follow instructions on your medications CAREFULLY. 4. If you have abdominal incision, do not cover it unless dressing is necessary because of drainage. OK to shower, but avoid bath. Leave steri-strips until they fall off. If they are still on one week after surgery, you may remove them. 5. If you had vaginal surgery or vaginal repair, Dr. Vaz may instruct you to take SITZ bath. 6. Yellow, blood tinged odorous vaginal discharge is usually normal after hysterectomy or vaginal surgeries. 7. No SEXUAL INTERCOURSE, tampons, or douches until you are completely released from the post-operative care. 8. Avoid constipation by eating right and maybe using some Metamucil or Milk of Magnesia. 9. All prescription refills are given during the working hours. Please do no wait till it runs out. Call the clinic at [phone] before your medication runs out. The clinic will get in touch with your doctor to prescribe medications if necessary. 10. Please remain within 40 mile radius from our hospital because emergencies do happen now and then during the post-operative period. 11. If you have stairs at home, take one step at a time slowly and minimize the number of trips. It helps to stay in one floor for the next few days. No lifting except what you can lift by one hand until you are released from the post-operative care. 12. Driving is discouraged until you are well healed. It may be 3-4 weeks before you feel strong enough to drive. You should be able to turn and look through the rear window without pain and you should be able to push the brake pedal very hard without pain before you drive. No fast rules, but SAFETY should be your primary concern. DO NOT drive if you are on sedating medications such as narcotics. 13. Call the clinic (during working hours) to make urgent appointment or go to the Emergency room, if any of the following occurs: i. Vaginal bleeding becomes heavy, more than a period. ii. Incision becomes red and sore, or drains pus. iii. Your TEMPERATURE is over 100.4F or you have chill. iv. IV site becomes red and swollen (a little ``knot?? is usually OK) v. Persistent nausea and vomiting vi. Persistent constipation or diarrhea vii. Rash or allergic reaction to medications. 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
[2023-01-11] MEDS: pantoprazole DR 40 mg Tablet PO (09:46)
[2023-01-11] MEDS: atorvastatin 40 mg Tablet PO (09:46)
[2023-01-11] MEDS: amlodipine 5 mg Tablet 10 MG PO (09:46)
[2023-01-11] MEDS: cetirizine 10 mg Tablet PO (09:47)
[2023-01-11] MEDS: ferrous sulfate EC 325 mg Tablet PO (09:47)
[2023-01-11] MEDS: docusate sodium 100 mg Capsule PO (09:47)
[2023-01-11] MEDS: folic acid 1 mg Tablet PO (09:47)
[2023-01-11] MEDS: venlafaxine ER (24HR) 75 mg Capsule PO (09:49)
[2023-01-11] MEDS: flu vacc pf 2023-24 (6 mos+) 60 MCG IM (09:55)
[2023-01-11 10:05] VITALS: BP 152/88; PULSE 101; RESP 17; TEMP 36.6; O2SAT 97
[2023-01-11 10:35] VITALS: BP 152/88; PULSE 101; RESP 17; TEMP 36.6; O2SAT 97
== END 2023-01-11 10:35 | disposition home or self-care (01) ==
LOC: OBGYN 09:20
PROVIDERS: Admitting Provider Obstetrics & Gynecology; PCP Family Medicine; Visit Provider Obstetrics & Gynecology
PROC: (CPT 58260; principal; 2023-01-10 07:00)
DX: N93.9 Abnormal uterine and vaginal bleeding, unspecified (principal); I10 Essential (primary) hypertension; K21.9 Gastro-esophageal reflux disease without esophagitis; E66.01 Morbid (severe) obesity due to excess calories; Z68.35 Body mass index [BMI] 35.0-35.9, adult
CPT/HCPCS: 58260; 36415; 80053; 81001; 81025; 84703; 85025; 85027; 86850; 86900; 87086; 88307; 90471; 90686; G0378; J0690; J1100; J1200; J1650; J1885; J2250; J2405; J2704; J2710; J3010; J3490; J7040; J7121

== ENCOUNTER 2023-01-18 19:02 | Emergency (ER) | payer MEDICAID, SELFPAY ==
[2023-01-18 19:11] VITALS: BP 170/93; PULSE 88; RESP 16; TEMP 36.7; O2SAT 100; BMI 42.5
--- NOTE | 2023-01-18 19:24 | ED_ITS ---
HPI - Female Genitourinary 2 General: Chief complaint: Urogenital-Female Stated complaint: Hurts when Pee's Time Seen by Provider: 01/18/23 19:09 History of Present Illness: 37-year-old female comes in today with s ome did increase dysuria and spotting noted. Patient has a history of a hysterectomy approximately 6 weeks ago. Patient reports symptoms for urination and vaginal discharge starting 2 days ago. Patient appears nontoxic. Patient denies any fever or chills. Patient reports left-sided abdominal discomfort. Patient denies any sexual intercourse. 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 Performed by Milind TOSCANO for AUB and PP. History of lumpectomy of right breast 07/25/22 Dr. Huerta History of toe surgery Postoperative state Family History Other Chronic kidney disease (CKD) Diabetes H/O scleroderma Hyperlipidemia Hypertension Lupus Rheumatoid arthritis Denies family history of CAD (coronary artery disease) Lung disease Cancer Stroke Social History Smoking and tobacco/nicotine status: never used tobacco/nicotine Second hand smoke exposure: Yes Alcohol intake: current Alcohol intake frequency: holidays/special occasions only Physical Exam 2 Const: COMMON NORMALS: alert HENMT: COMMON NORMALS: normocephalic HEAD & SCALP: normocephalic Neck/C-Spine: COMMON NORMALS: full ROM Resp: COMMON NORMALS: normal respiratory effort and clear to auscultation bilaterally AUSCULTATION: clear to auscultation bilaterally Cardio: COMMON NORMALS: regular rate RATE: regular rate GI: COMMON NORMALS: Soft to palpation PALPATION: Yes Soft to palpation and Yes Tenderness to palpation present (GI) Details: LLQ Back/Pelvis: COMMON NORMALS: thoracic and lumbar spine normal to inspection Extremity: COMMON NORMALS: normal to inspection Neuro: SENSORIUM/ORIENTATION: Yes alert Course 2 Vital Signs: Vital signs: Vital Signs Temperature 98.0 F 01/18/23 19:11 Pulse Rate 88 01/18/23 19:11 Respiratory Rate 16 01/18/23 19:11 Blood Pressure 170/93 01/18/23 19:11 Pulse Oximetry 100 01/18/23 19:11 [facility] - Female Medical Decision Making 37-year-old female comes in today with dysuria and vaginal discharge that is bloody in nature. Patient reports it as spotting vaginal discharge. Abdomen soft with some left lower quadrant abdominal tenderness. Bowel sounds are present. Skin is warm and dry. Vital signs are normal. Differential diagnosis includes not limited to surgical wound infection, urinary tract infection, abdominal abscess, diverticulitis, renal calculi. CBC and CMP noted some mild elevation in white blood cells at 13.5. CT of the abdomen noted some free fluid in the pelvis without signs of air. Pelvic exam did not note any signs of dehiscence of the wound. Urine had small amount of red and white blood cells. We will cover for possible urinary tract infection due to the patient's discomfort with urination. Patient was recommended to follow-up with the surgeon regarding the bleeding and further recommendations. Also discussed with patient not to be doing any heavy lifting and maintain pelvic rest until cleared by surgeon. Patient reported understanding and agreed to plan. Lab Data 01/18/23 19:37 01/18/23 19:37 Radiology Impressions Abdomen/Pelvis CT 01/18/23 19:31 IMPRESSION: 1. Small amount of mildly hyperdense free pelvic fluid, likely blood products, possibly secondary to an underlying ruptured left ovarian hemorrhagic cyst. Consider pelvic ultrasound for further evaluation. 2. Additional findings, as above. Laboratory Results WBC 13.53 10^3/uL (3.29-11.43) H 01/18/23 19:37 RBC 3.88 10^6/uL (3.85-5.65) 01/18/23 19:37 Hgb 10.90 g/dL (11.27-16.99) L 01/18/23 19:37 Hct 33.7 % (36-47) L 01/18/23 19:37 MCV 86.9 fl (85-98) 01/18/23 19:37 MCH 28.1 pg (27-33) 01/18/23 19:37 MCHC 32.3 g/dL (30-55) 01/18/23 19:37 RDW 14.4 % (12.1-15.1) 01/18/23 19:37 Plt Count 541 10^3/cmm (157-399) H 01/18/23 19:37 MPV 9.0 fL (7.4-10.4) 01/18/23 19:37 Neut % (Auto) 74.1 % 01/18/23 19:37 Lymph % (Auto) 17.7 % 01/18/23 19:37 [place] % (Auto) 5.5 % 01/18/23 19:37 Eos % (Auto) 1.3 % 01/18/23 19:37 Baso % (Auto) 0.7 % 01/18/23 19:37 Neut # (Auto) 10.04 10^3/uL (1.8-7.7) H 01/18/23 19:37 Lymph # (Auto) 2.4 10^3/uL (0.8-4.8) 01/18/23 19:37 [place] # (Auto) 0.7 10^3/uL (0.2-0.9) 01/18/23 19:37 Eos # (Auto) 0.2 10^3/uL (0.0-0.8) 01/18/23 19:37 Baso # (Auto) 0.1 10^3/uL (0.0-0.1) 01/18/23 19:37 Nucleated RBC % (auto) 0 % 01/18/23 19:37 Nucleated RBCs # 0.0 /100WBC 01/18/23 19:37 Sodium 136 mmol/L (136-145) 01/18/23 19:37 Potassium 3.4 mmol/L (3.5-5.1) L 01/18/23 19:37 Chloride 100 mmol/L (98-107) 01/18/23 19:37 Carbon Dioxide 25 mmol/L (22-29) 01/18/23 19:37 Anion Gap 14.4 (5-19) 01/18/23 19:37 BUN 14 mg/dL (6-20) 01/18/23 19:37 Creatinine 1.0 mg/dL (0.5-0.9) H 01/18/23 19:37 GFR Calculation 63.1 mL/min (90-130) L 01/18/23 19:37 Glucose 134 mg/dL (65-115) H 01/18/23 19:37 Calculated Osmolality 284 mOsm/kg (285-295) L 01/18/23 19:37 Calcium 9.4 mg/dL (8.5-10.5) 01/18/23 19:37 Total Bilirubin 0.6 mg/dL (0.15-1.2) 01/18/23 19:37 AST 17 U/L (0-32) 01/18/23 19:37 ALT 18 U/L (0-33) 01/18/23 19:37 Alkaline Phosphatase 104 U/L (35-105) 01/18/23 19:37 Total Protein 7.4 g/dL (6.6-8.7) 01/18/23 19:37 Albumin 4.0 g/dL (3.5-5.2) 01/18/23 19:37 Globulin 3.4 g/dL (1.3-4.6) 01/18/23 19:37 HCG, Qual Negative (Negative) 01/18/23:23 Urine Color Yellow (Yellow) 01/18/23 19:23 Urine Appearance Clear (CLEAR) 01/18/23 19:23 Urine pH 5 (5-7) 01/18/23:23 Ur Specific [place] 1.010 (1.005-1.030) 01/18/23:23 Urine Protein Neg (Negative) 01/18/23 19:23 Urine Glucose (UA) Norm (Normal) 01/18/23 19:23 Urine Ketones Negative (Negative) 01/18/23 19:23 Urine Blood 3+ (Negative) H 01/18/23 19:23 Urine Nitrate Negative (Negative) 01/18/23 19:23 Urine Bilirubin Neg (Negative) 01/18/23 19:23 Urine Urobilinogen Norm mg/dL (Negative) 01/18/23 19:23 Ur Leukocyte Esterase 1+ (Negative) H 01/18/23 19:23 Urine RBC 0-4 /hpf (0-2) H 01/18/23 19:23 Urine WBC 0-4 /hpf (0-5) H 01/18/23 19:23 Ur Squamous Epith Cells 0-4 /hpf (0-5) H 01/18/23 19:23 Amorphous Sediment Not Reportable 01/18/23 19:23 Urine Bacteria Trace /hpf (NONE) 01/18/23 19:23 All radiology interpretation(s) finalized by discharge Discharge Plan Discharge Patient Disposition: Home Clinical Impression: Dysuria Ovarian cyst Qualifiers: Laterality: left Qualified Code(s): N83.202 - Unspecified ovarian cyst, left side Condition: Stable Prescriptions: New nitrofurantoin macrocrystal 100 mg capsule 100 mg PO BID 5 Days Qty: 10 0RF Rx Instructions: must administer with a meal/food No Action (DME) Sole Supports See Rx Instructions .ROUTE .MEDSUPPLY Qty: 1 0RF Rx Instructions: As directed tizanidine [Zanaflex] 2 mg capsule 2 mg PO BID PRN (Reason: back spasm) atorvastatin 40 mg tablet 40 mg PO DAILY venlafaxine [Effexor XR] 75 mg capsule,extended release 24hr 75 mg PO DAILY rizatriptan 10 mg tablet 10 mg PO Q2H PRN (Reason: Migraine Headache) Rx Instructions: do not exceed 3 doses per 24 hrs ferrous sulfate [Feosol] 325 mg (65 mg iron) tablet 325 mg PO DAILY omeprazole 20 mg capsule,delayed release(DR/EC) 20 mg PO DAILY folic acid 1 mg tablet 1 mg PO DAILY cholecalciferol (vitamin D3) 50 mcg (2,000 unit) tablet 10,000 unit PO DAILY methotrexate sodium 2.5 mg tablet 2.5 mg PO DAILY Rx Instructions: weekly Norvasc 5 mg tablet 10 mg PO DAILY acetaminophen 325 mg capsule 325 mg PO Q4H PRN (Reason: fever or postoperative pain) Qty: 60 0RF acetaminophen 325 mg capsule 325 mg PO Q4H PRN (Reason: fever or postoperative pain) Qty: 60 0RF ibuprofen 800 mg tablet 800 mg PO TID PRN (Reason: pain) Qty: 60 0RF hydrocodone-acetaminophen 5-325 mg tablet 1 tab PO Q4H PRN (Reason: pain) Qty: 20 0RF Iron (ferrous sulfate) 325 mg (65 mg iron) tablet 325 mg PO BID Qty: 60 0RF Colace 100 mg capsule 100 mg PO BID Qty: 60 0RF naproxen sodium [Aleve] 220 mg Capsule 220 mg PO BID PRN (Reason: Inflammation) Hold Instructions: Resume on 07/27/22. Zyrtec 10 mg capsule 10 mg PO DAILY Discharge Orders: Discharge ED (Routine); Ordered 01/18/23 Ordered By: Octaviano Neal Referrals: Ira Rosa DO [Primary Care Provider] - Discharge Diet: Usual diet Discharge Activity: Increase activity as tolerated Patient Instructions: Urinary Tract Infection in Women (ED) Activity Restrictions/Additional Instructions: Drink plenty of water and fluids. Take medications as directed. No heavy lifting, pelvic rest, no sexual intercourse. Follow-up with surgeon for further evaluation and treatment. Take antibiotics as directed for urinary tract infection. Return to ER for worsening symptoms such as severe pain, increasing bleeding, or new concerns. Coding Level of Care Code ED Call Center Analyst for Pawel Hooks
--- NOTE | 2023-01-18 19:31 | CTR_ITS ---
PROCEDURE INFORMATION: Exam: CT Abdomen And Pelvis With Contrast Exam date and time: 01/18/2023 8:30 PM Age: 37 years old Clinical indication: Abdominal pain; Prior surgery; Surgery date: 1-6 months; Surgery type: -recent hysterectomy September. -gb, appy; Additional info: Rule out abdominal abscess, recent hysterectomy TECHNIQUE: Imaging protocol: Computed tomography of the abdomen and pelvis with contrast. Axial, coronal and sagittal reformatted images were created and reviewed. Radiation optimization: All CT scans at this facility use at least one of these dose optimization techniques: automated exposure control; mA and/or kV adjustment per patient size (includes targeted exams where dose is matched to clinical indication); or iterative reconstruction. Contrast material: OMNI 350; Contrast volume: 100 ml; Contrast route: INTRAVENOUS (IV); REPORTING DATA: Count of CT and Cardiac NM exams in prior 12 months: This patient has received 0 known CTs and 0 known cardiac nuclear medicine studies in the 12 months prior to the current study. COMPARISON: CR XR hip LT 2-3V wo/w pel* [id number] 08/18/2022 5:09 PM RADIATION DOSE METRICS: Total DLP (mGy-cm): 1264.5 FINDINGS: Liver: Mild hepatomegaly. Mild, diffuse hepatic steatosis. Gallbladder and bile ducts: Status post cholecystectomy. No biliary ductal dilatation. Pancreas: Unremarkable. Spleen: Unremarkable. Adrenal glands: Normal. No mass. Kidneys and ureters: No mass. No radiodense calculi. No hydronephrosis. Stomach and bowel: No bowel wall thickening. No obstruction. No pneumatosis. Appendix: Status post appendectomy by history. Intraperitoneal space: Small amount of mildly hyperdense free pelvic fluid, likely blood products. No active extravasation of contrast. No definite organized collection. No free air. Vasculature: Unremarkable. No aneurysm. Lymph nodes: No pathologically enlarged lymph nodes. Urinary bladder: Unremarkable as visualized. Reproductive: Status post hysterectomy. Somewhat heterogeneous left ovary, likely secondary to an underlying cystic lesion. Bones/joints: No acute osseous abnormality. Soft tissues: Unremarkable. CT/CT abdomen pelvis w con* [id number] IMPRESSION: 1. Small amount of mildly hyperdense free pelvic fluid, likely blood products, possibly secondary to an underlying ruptured left ovarian hemorrhagic cyst. Consider pelvic ultrasound for further evaluation. 2. Additional findings, as above.
[2023-01-18 19:49] LABS: HCG Qualitative Urine. Negative (Negative)
[2023-01-18 19:53] LABS: Basophils # 0.1 10^3/uL (0.0-0.1); Basophils % 0.7 %; Eosinophils # 0.2 10^3/uL (0.0-0.8); Eosinophils % 1.3 %; Hematocrit 33.7 % (36-47); Lymphocytes # 2.4 10^3/uL (0.8-4.8); Lymphocytes % 17.7 %; Mean Corpuscular HGB Conc 32.3 g/dL (30-55); Mean Corpuscular Hemoglobin 28.1 pg (27-33); Mean Corpuscular Volume 86.9 fl (85-98); Monocytes # 0.7 10^3/uL (0.2-0.9); Monocytes % 5.5 %; Neutrophils # 10.04 10^3/uL (1.8-7.7); Neutrophils % 74.1 %; Nucleated Red Blood Cells % 0 %; Platelet Count 541 10^3/cmm (157-399); Red Blood Count 3.88 10^6/uL (3.85-5.65); Red Cell Distribution Width 14.4 % (12.1-15.1); White Blood Count 13.53 10^3/uL (3.29-11.43)
[2023-01-18 20:01] LABS: Alanine Aminotransferase 18 U/L (0-33); Alkaline Phosphatase 104 U/L (35-105); Anion Gap 14.4 (5-19); Aspartate Amino Transferase 17 U/L (0-32); Blood Urea Nitrogen 14 mg/dL (6-20); Calcium 9.4 mg/dL (8.5-10.5); Carbon Dioxide 25 mmol/L (22-29); Chloride 100 mmol/L (98-107); Globulin 3.4 g/dL (1.3-4.6); Glomerular Filtration Rate 63.1 mL/min (90-130); Glucose 134 mg/dL (65-115); Osmolality Calculated 284 mOsm/kg (285-295); Potassium 3.4 mmol/L (3.5-5.1); Sodium 136 mmol/L (136-145); Total Bilirubin 0.6 mg/dL (0.15-1.2); Total Protein 7.4 g/dL (6.6-8.7)
[2023-01-18] MEDS: iohexol 350 mg/mL 500 mL Btl (per mL) IV (20:33)
[2023-01-18 20:49] LABS: Urine Appearance Clear (CLEAR); Urine Color Yellow (Yellow)
[2023-01-18 20:50] LABS: Add Urine Culture? Yes; Add Urine Microscopic? YES; Bacteria Urine TRACE /hpf; Bilirubin Urine Neg (Negative); Blood Urine 3+ (Negative); Glucose Urine UA Norm (Normal); Ketones Urine Negative (Negative); Leukocyte Esterase Urine 1+ (Negative); Nitrate Urine Negative (Negative); Protein Urine Neg (Negative); RBC Urine 0-4 /hpf (0-2); Squamous Epithelial Cell Urine 0-4 /hpf (0-5); Urobilinogen Urine Norm (Negative); WBC Urine 0-4 /hpf (0-5); pH Urine 5 (5-7)
[2023-01-18 21:06] VITALS: BP 160/113; PULSE 105; RESP 16; O2SAT 100
[2023-01-18] MEDS: nitrofurantoin SR (BID) 100 mg Capsule PO (21:06)
== END 2023-01-18 21:10 | disposition home or self-care (01) ==
PROVIDERS: Emergency Provider Nurse Practitioner Family; PCP Family Medicine
DX: R30.0 Dysuria (principal); N83.202 Unspecified ovarian cyst, left side
CPT/HCPCS: 74177; 80053; 81001; 81025; 85025; 87086; 99285; Q9967

== ENCOUNTER 2023-01-22 07:15 | Emergency (ER) | payer MEDICAID, SELFPAY ==
[2023-01-22 07:22] VITALS: BP 146/100; PULSE 100; RESP 16; TEMP 36.9; O2SAT 100; BMI 42.9
--- NOTE | 2023-01-22 07:34 | ED_ITS ---
HPI - Female Genitourinary 2 General: Chief complaint: Vaginal Bleeding Stated complaint: vaginal bleeding,previous hysterectomy Time Seen by Provider: 01/22/23 07:17 Source: patient Mode of arrival: ambulatory History of Present Illness: 37-year-old female presents emergency ro om complaining of vaginal bleeding. She is getting spotting at times has some slight abdominal discomfort patient had a vaginal hysterectomy on January 02, 2023. She stated overnight she had this mostly soaked a pad. She has not had any heavy continuous bleeding is intermittent spotting. She continues to maintain pelvic rest. MD elicited complaint: vaginal bleeding Pertinent past history: hysterectomy (Recent) Quality of pain: cramping Vaginal bleeding: scant Urinary symptoms: Difficulty Urinating Exacerbating factors: none Relieving factors: none Associated symptoms: Deny abdominal pain, short of breath, fevers/chills, headache(s), nausea, rash, seizures, syncope, vaginal bleeding, vaginal discharge or weakness Treatment prior to arrival: none Sexual activity: No Review of Systems 2 Const: Denies: fever(s) or chills Card: Denies: syncope Resp: Denies: dyspnea GI: Denies: abdominal pain or nausea : Denies: vaginal discharge Musc: Denies: neck pain or back pain Skin/Breast: Denies: rash Neuro: Denies: headache(s) PFSH ED 2 PFSH: Medical History Left hip pain Sacroiliac inflammation Joint pain Onychodystrophy Hypertrophy of tongue Undifferentiated connective tissue disease History of recurrent miscarriages Immunization counseling High risk medication use Inflammatory arthritis Positive DANIELA (antinuclear antibody) Surgical History History of hysteroscopy (~10/04/22) Hysteroscopy D&C via Myosure. Performed by Milind [facility] for AUB and PP. History of lumpectomy of right breast 07/25/22 Dr. Huerta History of foot surgery 08/23/19ubtalor infusion repair tendon and extend Achilles tendon Postoperative state History of cholecystectomy History of appendectomy History of toe surgery Family History Other Chronic kidney disease (CKD) Diabetes H/O scleroderma Hyperlipidemia Hypertension Lupus Rheumatoid arthritis Denies family history of CAD (coronary artery disease) Lung disease Cancer Stroke Social History Smoking and tobacco/nicotine status: never used tobacco/nicotine Second hand smoke exposure: Yes Alcohol intake: current Alcohol intake frequency: holidays/special occasions only Physical Exam 2 Const: COMMON NORMALS: no acute distress GENERAL APPEARANCE: cooperative and comfortable ORIENTATION/CONSCIOUSNESS: Yes awake, Yes oriented to person, Yes oriented to place and Yes oriented to time HENMT: COMMON NORMALS: normocephalic, atraumatic and hearing grossly normal bilaterally HEAD & SCALP: normocephalic and atraumatic Resp: COMMON NORMALS: normal respiratory effort, No retractions, No use of accessory muscles and clear to auscultation bilaterally AUSCULTATION: clear to auscultation bilaterally Cardio: COMMON NORMALS: regular rate, regular rhythm and No murmurs present (Cardio) RATE: regular rate RHYTHM: regular rhythm GI: COMMON NORMALS: Soft to palpation and No hepatosplenomegaly present A USCULTATION: Yes normoactive bowel sounds PALPATION: Yes Soft to palpation, No Tenderness to palpation present (GI), No Guarding due to palpation present (GI) and Yes No hepatosplenomegaly present : SPECULUM EXAM - VAGINA: No vaginal bleeding OB/EXTERNAL & SPECULUM: No vaginal bleeding Extremity: COMMON NORMALS: normal to inspection, capillary refill normal, no clubbing, cyanosis or edema, no calf tenderness and no pedal edema Neuro: SENSORIUM/ORIENTATION: Yes oriented to person, Yes oriented to place and Yes oriented to time Skin: COMMON NORMALS: no rashes or lesions noted GENERAL SKIN EXAM: no rashes or lesions noted Course 2 Vital Signs: Vital signs: Vital Signs Temperature 98.4 F 01/22/23 07:22 Pulse Rate 100 01/22/23 07:22 Respiratory Rate 16 01/22/23 07:22 Blood Pressure 151/96 01/22/23 08:37 Pulse Oximetry 100 01/22/23 07:22 Oxygen Delivery Me thod Room Air 01/22/23 07:22 MDM - Female Medical Decision Making Labs reviewed hemoglobin improving. I called and discussed Dr. Vaz he preferred that we did not do a vaginal exam because of the recent surgery. Since her hemoglobin is stable he recommends that she follow-up with him in the office tomorrow and he will do further evaluation as deemed appropriate. Medical Records I reviewed the patient's medical records. Lab Data I reviewed the patient's lab results. 01/22/23 07:30 01/22/23 07:30 Laboratory Results WBC 11.00 10^3/uL (3.29-11.43) 01/22/23 07:30 RBC 4.05 10^6/uL (3.85-5.65) 01/22/23 07:30 Hgb 11.20 g/dL (11.27-16.99) L 01/22/23 07:30 Hct 35.9 % (36-47) L 01/22/23 07:30 MCV 88.6 fl (85-98) 01/22/23 07:30 MCH 27.7 pg (27-33) 01/22/23 07:30 MCHC 31.2 g/dL (30-55) 01/22/23 07:30 RDW 14.1 % (12.1-15.1) 01/22/23 07:30 Plt Count 484 10^3/cmm (157-399) H 01/22/23 07:30 MPV 8.6 fL (7.4-10.4) 01/22/23 07:30 Neut % (Auto) 76.8 % 01/22/23 07:30 Lymph % (Auto) 14.7 % 01/22/23 07:30 [place] % (Auto) 5.0 % 01/22/23 07:30 Eos % (Auto) 2.3 % 01/22/23 07:30 Baso % (Auto) 0.6 % 01/22/23 07:30 Neut # (Auto) 8.44 10^3/uL (1.8-7.7) H 01/22/23 07:30 Lymph # (Auto) 1.6 10^3/uL (0.8-4.8) 01/22/23 07:30 [place] # (Auto) 0.6 10^3/uL (0.2-0.9) 01/22/23 07:30 Eos # (Auto) 0.3 10^3/uL (0.0-0.8) 01/22/23 07:30 Baso # (Auto) 0.1 10^3/uL (0.0-0.1) 01/22/23 07:30 Nucleated RBC % (auto) 0 % 01/22/23 07:30 Nucleated RBCs # 0.0 /100WBC 01/22/23 07:30 Sodium 138 mmol/L (136-145) 01/22/23 07:30 Potassium 3.7 mmol/L (3.5-5.1) 01/22/23 07:30 Chloride 104 mmol/L (98-107) 01/22/23 07:30 Carbon Dioxide 24 mmol/L (22-29) 01/22/23 07:30 Anion Gap 13.7 (5-19) 01/22/23 07:30 BUN 9 mg/dL (6-20) 01/22/23 07:30 Creatinine 0.8 mg/dL (0.5-0.9) 01/22/23 07:30 GFR Calculation 81.6 mL/min (90-130) L 01/22/23 07:30 Glucose 118 mg/dL (65-115) H 01/22/23 07:30 Calculated Osmolality 286 mOsm/kg (285-295) 01/22/23 07:30 Calcium 9.4 mg/dL (8.5-10.5) 01/22/23 07:30 Urine Color Yellow (Yellow) 01/22/23 07:53 Urine Appearance Clear (CLEAR) 01/22/23 07:53 Urine pH 5 (5-7) 01/22/23 07:53 Ur Specific [place] 1.020 (1.005-1.030) 01/22/23 07:53 Urine Protein Neg (Negative) 01/22/23 07:53 Urine Glucose (UA) Norm (Normal) 01/22/23 07:53 Urine Ketones Negative (Negative) 01/22/23 07:53 Urine Blood Neg (Negative) 01/22/23 07:53 Urine Nitrate Negative (Negative) 01/22/23 07:53 Urine Bilirubin Neg (Negative) 01/22/23 07:53 Urine Urobilinogen Norm mg/dL (Negative) 01/22/23 07:53 Ur Leukocyte Esterase Negative (Negative) 01/22/23 07:53 No radiology studies performed this visit Discharge Plan Discharge Patient Disposition: Home Clinical Impression: Vaginal bleeding, S/P hysterectomy Condition: Stable Prescriptions: No Action (DME) Sole Supports See Rx Instructions .ROUTE .MEDSUPPLY Qty: 1 0RF Rx Instructions: As directed tizanidine [Zanaflex] 2 mg capsule 2 mg PO BID PRN (Reason: back spasm) atorvastatin 40 mg tablet 40 mg PO DAILY venlafaxine [Effexor XR] 75 mg capsule,extended release 24hr 75 mg PO DAILY rizatriptan 10 mg tablet 10 mg PO Q2H PRN (Reason: Migraine Headache) Rx Instructions: do not exceed 3 doses per 24 hrs ferrous sulfate [Feosol] 325 mg (65 mg iron) tablet 325 mg PO DAILY omeprazole 20 mg capsule,delayed release(DR/EC) 20 mg PO DAILY folic acid 1 mg tablet 1 mg PO DAILY cholecalciferol (vitamin D3) 50 mcg (2,000 unit) tablet 10,000 unit PO DAILY methotrexate sodium 2.5 mg tablet 2.5 mg PO DAILY Rx Instructions: weekly Norvasc 5 mg tablet 10 mg PO DAILY acetaminophen 325 mg capsule 325 mg PO Q4H PRN (Reason: fever or postoperative pain) Qty: 60 0RF acetaminophen 325 mg capsule 325 mg PO Q4H PRN (Reason: fever or postoperative pain) Qty: 60 0RF ibuprofen 800 mg tablet 800 mg PO TID PRN (Reason: pain) Qty: 60 0RF hydrocodone-acetaminophen 5-325 mg tablet 1 tab PO Q4H PRN (Reason: pain) Qty: 20 0RF Iron (ferrous sulfate) 325 mg (65 mg iron) tablet 325 mg PO BID Qty: 60 0RF Colace 100 mg capsule 100 mg PO BID Qty: 60 0RF naproxen sodium [Aleve] 220 mg Capsule 220 mg PO BID PRN (Reason: Inflammation) Hold Instructions: Resume on 07/27/22. Zyrtec 10 mg capsule 10 mg PO DAILY nitrofurantoin macrocrystal 100 mg capsule 100 mg PO BID 5 Days Qty: 10 0RF Rx Instructions: must administer with a meal/food Discharge Orders: Discharge ED (Routine); Ordered 01/22/23 Ordered By: Bubba Harris Referrals: Ira Rosa DO [Primary Care Provider] - Patient Instructions: Opioid Safety, Pain Management Activity Restrictions/Additional Instructions: Thank you for choosing [facility] for your healthcare needs today. Please realize this is an emergency room and that we are providing you with a medical screening exam and this may not be complete and all inclusive of all the testing and or work up that you may need to determine your ailment or severity of your illness. It is very important that you follow up as instructed or that you return to the Emergency Department should you have concerns or if your condition changes or worsens in any way. . Your hemoglobin continues to improve since your surgery. I did discuss Dr. Vaz who did your hysterectomy. He does not wish for us to do a vaginal exam in the emergency room and would like you to call his office in the morning and he will arrange follow-up. Continue pelvic rest until you see Dr. Zaina kaur. 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
[2023-01-22 07:35] LABS: Basophils # 0.1 10^3/uL (0.0-0.1); Basophils % 0.6 %; Eosinophils # 0.3 10^3/uL (0.0-0.8); Eosinophils % 2.3 %; Hematocrit 35.9 % (36-47); Lymphocytes # 1.6 10^3/uL (0.8-4.8); Lymphocytes % 14.7 %; Mean Corpuscular HGB Conc 31.2 g/dL (30-55); Mean Corpuscular Hemoglobin 27.7 pg (27-33); Mean Corpuscular Volume 88.6 fl (85-98); Mean Platelet Volume 8.6 fL (7.4-10.4); Monocytes # 0.6 10^3/uL (0.2-0.9); Neutrophils # 8.44 10^3/uL (1.8-7.7); Neutrophils % 76.8 %; Nucleated Red Blood Cells % 0 %; Platelet Count 484 10^3/cmm (157-399); Red Blood Count 4.05 10^6/uL (3.85-5.65); Red Cell Distribution Width 14.1 % (12.1-15.1)
[2023-01-22 07:56] LABS: Anion Gap 13.7 (5-19); Blood Urea Nitrogen 9 mg/dL (6-20); Calcium 9.4 mg/dL (8.5-10.5); Carbon Dioxide 24 mmol/L (22-29); Chloride 104 mmol/L (98-107); Glomerular Filtration Rate 81.6 mL/min (90-130); Glucose 118 mg/dL (65-115); Osmolality Calculated 286 mOsm/kg (285-295); Potassium 3.7 mmol/L (3.5-5.1); Sodium 138 mmol/L (136-145)
[2023-01-22 08:01] LABS: Add Urine Microscopic? NO; Charge for UA Resulting for Rev
[2023-01-22 08:15] LABS: Bilirubin Urine Neg (Negative); Blood Urine Neg (Negative); Glucose Urine UA Norm (Normal); Ketones Urine Negative (Negative); Leukocyte Esterase Urine Negative (Negative); Nitrate Urine Negative (Negative); Protein Urine Neg (Negative); Urine Appearance Clear (CLEAR); Urine Color Yellow (Yellow); Urobilinogen Urine Norm (Negative); pH Urine 5 (5-7)
[2023-01-22 08:37] VITALS: BP 151/96
== END 2023-01-22 08:38 | disposition home or self-care (01) ==
PROVIDERS: Emergency Provider Family Medicine; PCP Family Medicine
DX: N93.9 Abnormal uterine and vaginal bleeding, unspecified (principal); Z90.710 Acquired absence of both cervix and uterus; Z77.22 Contact with and (suspected) exposure to environmental tobacco smoke (acute) (chronic)
CPT/HCPCS: 80048; 81003; 85025; 99283

== ENCOUNTER → 2023-01-24 09:49 | Outpatient (BNVA) | payer MEDICAID, SELFPAY | PROVIDERS: PCP Family Medicine; Visit Provider Obstetrics & Gynecology | DX: N93.9 Abnormal uterine and vaginal bleeding, unspecified (principal) | CPT/HCPCS: 76857 ==

== ENCOUNTER 2023-01-26 17:11 | Emergency (ER) | payer MEDICAID, SELFPAY ==
[2023-01-26 17:30] VITALS: BP 167/75; PULSE 98; RESP 18; TEMP 36.6; O2SAT 100; BMI 42.9
--- NOTE | 2023-01-26 17:52 | USR_ITS ---
PROCEDURE INFORMATION: Exam: US Pelvis Complete, Transabdominal and US Duplex Artery or Vein, Ovaries, Limited Exam date and time: 01/26/2023 6:09 PM Age: 37 years old Clinical indication: Prior surgery; Surgery date: <1 month; Surgery type: Vaginal hysterectomy due to leiomyomatosis; Patient HX: G16 - p1- a15 -l1 presenting with vaginal bleeding and continuing pelvic pain S/P vaginal hysterectomy on 01/10/23. ; Additional info: Hematoma post hysterectomy TECHNIQUE: Imaging protocol: Real-time transabdominal pelvic ultrasound with image documentation. Real-time duplex ultrasound scan of the arterial or venous flow of the ovaries with B-mode, color Doppler flow and spectral waveform analysis. Complete Pelvis, Limited Duplex. Duplex exam was performed to evaluate for torsion and other vascular conditions. COMPARISON: 1. US pelvic limited [id number] 01/24/2023 9:[address] abdomen pelvis w con* [id number] 01/18/2023 8:30 PM FINDINGS: Uterus: Status post hysterectomy. Right ovary/adnexa: Ovary measures 3.0 x 3.2 x 3.0 cm for a calculated volume of 15 cc. No mass. Normal arterial flow on color and Duplex waveforms. Left ovary/adnexa: Ovary measures 2.6 x 4.1 x 4.9 cm for a calculated volume of 27 cc. Dominant follicles measure 1.8 cm and 2.2 cm. No solid mass. Normal arterial flow on color and Duplex waveforms. Intraperitoneal space: Redemonstrated complex midline hypoechoic collection just superior to the vaginal cuff measures 9.5 x 9.8 x 7.1 cm, previously 11.5 x 9.8 x 6.1 cm. No free fluid at the visualized pelvis or interrogated upper abdomen, to include Morison's pouch. Urinary bladder: Somewhat underdistended, limiting evaluation. US/US pelvic complete* [id number] IMPRESSION: Grossly similar complex midline pelvic fluid collection suspected to represent hematoma.
--- NOTE | 2023-01-26 17:53 | ED_ITS ---
HPI - Female Genitourinary 2 General: Chief complaint: Urogenital-Female Stated complaint: hematoma, dr Vaz sent Time Seen by Provider: 01/26/23 17:45 History of Present Illness: Patient comes in today with some increased abdominal pain just below the umbilicus. Patient denies any fever or chills. Patient had talked to Dr. Vaz's office and they referred her to the ER for further evaluation due to not having a fire protection engineering technician in office today. Patient appears nontoxic. Patient appears in no pain at rest. 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 benign pathology. History of hysteroscopy (~10/04/22) Hysteroscopy D&C via Myosure. Performed by Milind [facility] for AUB and PP. History of lumpectomy of right breast 07/25/22 Dr. Huerta History of foot surgery 08/23/19ubtalor infusion repair tendon and extend Achilles tendon Postoperative state History of cholecystectomy History of appendectomy History of toe surgery Family History Other Chronic kidney disease (CKD) Diabetes H/O scleroderma Hyperlipidemia Hypertension Lupus Rheumatoid arthritis Denies family history of CAD (coronary artery disease) Lung disease Cancer Stroke Physical Exam 2 Const: COMMON NORMALS: alert HENMT: COMMON NORMALS: normocephalic HEAD & SCALP: normocephalic Neck/C-Spine: COMMON NORMALS: full ROM Resp: COMMON NORMALS: normal respiratory effort and clear to auscultation bilaterally AUSCULTATION: clear to auscultation bilaterally Cardio: COMMON NORMALS: regular rate and regular rhythm RATE: regular rate RHYTHM: regular rhythm GI: COMMON NORMALS: Soft to palpation PALPATION: Yes Soft to palpation and Yes Tenderness to palpation present (GI) (Below the umbilicus) : COMMON NORMALS: Yes no CVA tenderness BLADDER/KIDNEY EXAM: Yes no CVA tenderness Back/Pelvis: COMMON NORMALS: no CVA tenderness Extremity: COMMON NORMALS: normal to inspection Neuro: SENSORIUM/ORIENTATION: Yes alert Skin: COMMON NORMALS: turgor normal GENERAL SKIN EXAM: turgor normal Course 2 Vital Signs: Vital signs: Vital Signs Temperature 97.9 F 01/26/23 17:30 Pulse Rate 98 01/26/23 17:30 Respiratory Rate 18 01/26/23 17:30 Blood Pressure 167/75 01/26/23 17:30 Pulse Oximetry 100 01/26/23 17:30 Oxygen Delivery Me thod Room Air 01/26/23 17:30 MDM - Female Medical Decision Making 37-year-old female comes in today with lower abdominal pain around the umbilicus. Patient has a known hematoma to the vaginal vault secondary to the hysterectomy she had. Patient talked to her surgeon and they recommend that she be evaluated in the ER for ultrasound. Patient appears nontoxic. Vital signs are normal. No vaginal bleeding is noted at this time. Differential diagnosis includes but not limited to expanding hematoma, postop bleeding, wound infection, wound dehiscence. CBC showed an improving white blood cell count at 10.3, stable hemoglobin at 10, CMP was unremarkable. Ultrasound showed a improving hematoma as noted on size of the ultrasound. Reviewed this with Dr. Vaz who recommended medications for pain, no lifting and pelvic rest, and follow-up as scheduled appointment. Patient reported understanding and agreed to plan. Lab Data 01/26/23 17:57 01/26/23 17:57 Laboratory Results WBC 10.38 10^3/uL (3.29-11.43) 01/26/23 17:57 RBC 3.66 10^6/uL (3.85-5.65) L 01/26/23 17:57 Hgb 10.00 g/dL (11.27-16.99) L 01/26/23 17:57 Hct 32.5 % (36-47) L 01/26/23 17:57 MCV 88.8 fl (85-98) 01/26/23 17:57 MCH 27.3 pg (27-33) 01/26/23 17:57 MCHC 30.8 g/dL (30-55) 01/26/23 17:57 RDW 14.0 % (12.1-15.1) 01/26/23 17:57 Plt Count 417 10^3/cmm (157-399) H 01/26/23 17:57 MPV 8.9 fL (7.4-10.4) 01/26/23 17:57 Neut % (Auto) 72.1 % 01/26/23 17:57 Lymph % (Auto) 20.5 % 01/26/23 17:57 [place] % (Auto) 4.4 % 01/26/23 17:57 Eos % (Auto) 1.9 % 01/26/23 17:57 Baso % (Auto) 0.5 % 01/26/23 17:57 Neut # (Auto) 7.48 10^3/uL (1.8-7.7) 01/26/23 17:57 Lymph # (Auto) 2.1 10^3/uL (0.8-4.8) 01/26/23 17:57 [place] # (Auto) 0.5 10^3/uL (0.2-0.9) 01/26/23 17:57 Eos # (Auto) 0.2 10^3/uL (0.0-0.8) 01/26/23 17:57 Baso # (Auto) 0.1 10^3/uL (0.0-0.1) 01/26/23 17:57 Nucleated RBC % (auto) 0 % 01/26/23 17:57 Nucleated RBCs # 0.0 /100WBC 01/26/23 17:57 Sodium 138 mmol/L (136-145) 01/26/23 17:57 Potassium 3.4 mmol/L (3.5-5.1) L 01/26/23 17:57 Chloride 103 mmol/L (98-107) 01/26/23 17:57 Carbon Dioxide 25 mmol/L (22-29) 01/26/23 17:57 Anion Gap 13.4 (5-19) 01/26/23 17:57 BUN 7 mg/dL (6-20) 01/26/23 17:57 Creatinine 0.7 mg/dL (0.5-0.9) 01/26/23 17:57 GFR Calculation 95.2 mL/min (90-130) 01/26/23 17:57 Glucose 207 mg/dL (65-115) H 01/26/23 17:57 Calculated Osmolality 290 mOsm/kg (285-295) 01/26/23 17:57 Calcium 8.4 mg/dL (8.5-10.5) L 01/26/23 17:57 Total Bilirubin 0.3 mg/dL (0.15-1.2) 01/26/23 17:57 AST 13 U/L (0-32) 01/26/23 17:57 ALT 18 U/L (0-33) 01/26/23 17:57 Alkaline Phosphatase 93 U/L (35-105) 01/26/23 17:57 Total Protein 6.9 g/dL (6.6-8.7) 01/26/23 17:57 Albumin 3.6 g/dL (3.5-5.2) 01/26/23 17:57 Globulin 3.3 g/dL (1.3-4.6) 01/26/23 17:57 All radiology interpretation(s) finalized by discharge Discharge Plan Discharge Patient Disposition: Home Clinical Impression: Hematoma of vaginal vault after surgical procedure Condition: Stable Prescriptions: No Action (DME) Sole Supports See Rx Instructions .ROUTE .MEDSUPPLY Qty: 1 0RF Rx Instructions: As directed tizanidine [Zanaflex] 2 mg capsule 2 mg PO BID PRN (Reason: back spasm) atorvastatin 40 mg tablet 40 mg PO DAILY venlafaxine [Effexor XR] 75 mg capsule,extended release 24hr 75 mg PO DAILY rizatriptan 10 mg tablet 10 mg PO Q2H PRN (Reason: Migraine Headache) Rx Instructions: do not exceed 3 doses per 24 hrs omeprazole 20 mg capsule,delayed release(DR/EC) 20 mg PO DAILY folic acid 1 mg tablet 1 mg PO DAILY cholecalciferol (vitamin D3) 50 mcg (2,000 unit) tablet 10,000 unit PO DAILY methotrexate sodium 2.5 mg tablet 2.5 mg PO DAILY Rx Instructions: weekly Norvasc 5 mg tablet 10 mg PO DAILY acetaminophen 325 mg capsule 325 mg PO Q4H PRN (Reason: fever or postoperative pain) Qty: 60 0RF ibuprofen 800 mg tablet 800 mg PO TID PRN (Reason: pain) Qty: 60 0RF hydrocodone-acetaminophen 5-325 mg tablet 1 tab PO Q4H PRN (Reason: pain) Qty: 20 0RF Iron (ferrous sulfate) 325 mg (65 mg iron) tablet 325 mg PO BID Qty: 60 0RF Colace 100 mg capsule 100 mg PO BID Qty: 60 0RF naproxen sodium [Aleve] 220 mg Capsule 220 mg PO BID PRN (Reason: Inflammation) Hold Instructions: Resume on 07/27/22. Zyrtec 10 mg capsule 10 mg PO DAILY Discharge Orders: Discharge ED (Routine); Ordered 01/26/23 Ordered By: Octaviano Neal Referrals: Ira Rosa DO [Primary Care Provider] - Discharge Diet: Usual diet Discharge Activity: Increase activity as tolerated Patient Instructions: Hysterectomy (DC) Activity Restrictions/Additional Instructions: No heavy lifting, nothing greater than 5 pounds. Pelvic rest. Continue with scheduled appointment. Return to ED for worsening symptoms such as high fever, increased vaginal bleeding, or new concerns. Coding Level of Care Code ED Mental Health Therapist for [place]
[2023-01-26 18:21] LABS: Basophils # 0.1 10^3/uL (0.0-0.1); Basophils % 0.5 %; Eosinophils # 0.2 10^3/uL (0.0-0.8); Eosinophils % 1.9 %; Hematocrit 32.5 % (36-47); Lymphocytes # 2.1 10^3/uL (0.8-4.8); Lymphocytes % 20.5 %; Mean Corpuscular HGB Conc 30.8 g/dL (30-55); Mean Corpuscular Hemoglobin 27.3 pg (27-33); Mean Corpuscular Volume 88.8 fl (85-98); Mean Platelet Volume 8.9 fL (7.4-10.4); Monocytes # 0.5 10^3/uL (0.2-0.9); Monocytes % 4.4 %; Neutrophils # 7.48 10^3/uL (1.8-7.7); Neutrophils % 72.1 %; Nucleated Red Blood Cells % 0 %; Platelet Count 417 10^3/cmm (157-399); Red Blood Count 3.66 10^6/uL (3.85-5.65); White Blood Count 10.38 10^3/uL (3.29-11.43)
[2023-01-26 18:22] LABS: Alanine Aminotransferase 18 U/L (0-33); Albumin Level 3.6 g/dL (3.5-5.2); Alkaline Phosphatase 93 U/L (35-105); Anion Gap 13.4 (5-19); Aspartate Amino Transferase 13 U/L (0-32); Blood Urea Nitrogen 7 mg/dL (6-20); Calcium 8.4 mg/dL (8.5-10.5); Carbon Dioxide 25 mmol/L (22-29); Chloride 103 mmol/L (98-107); Globulin 3.3 g/dL (1.3-4.6); Glomerular Filtration Rate 95.2 mL/min (90-130); Glucose 207 mg/dL (65-115); Osmolality Calculated 290 mOsm/kg (285-295); Potassium 3.4 mmol/L (3.5-5.1); Sodium 138 mmol/L (136-145); Total Bilirubin 0.3 mg/dL (0.15-1.2); Total Protein 6.9 g/dL (6.6-8.7)
[2023-01-26] MEDS: ibuprofen 600 mg Tablet PO (18:45)
== END 2023-01-26 19:30 | disposition home or self-care (01) ==
PROVIDERS: Emergency Provider Nurse Practitioner Family; PCP Family Medicine
DX: N99.840 Postprocedural hematoma of a genitourinary system organ or structure following a genitourinary system procedure (principal); Z90.710 Acquired absence of both cervix and uterus; Y83.8 Other surgical procedures as the cause of abnormal reaction of the patient, or of later complication, without mention of misadventure at the time of the procedure
CPT/HCPCS: 36415; 76856; 80053; 85025; 99284

== ENCOUNTER → 2023-01-30 12:01 | Outpatient (BNVA) | payer MEDICAID, SELFPAY | PROVIDERS: PCP Family Medicine; Visit Provider Obstetrics & Gynecology | DX: R10.2 Pelvic and perineal pain (principal) | CPT/HCPCS: 76857 ==

== ENCOUNTER 2023-04-28 07:47 | Day surgery (SDC) | payer MEDICAID, SELFPAY ==
[2023-04-28] VITALS (12 sets, daily range): BP systolic 131–161; BP diastolic 87–112; PULSE 77–92; RESP 14–18; TEMP 36.1–36.4; O2SAT 92–100; BMI 42.9
[2023-04-28] MEDS: sodium chloride 0.9% 1,000 ML 30 ML IV (08:00)
[2023-04-28] MEDS: CELEcoxib 200 mg Capsule 400 MG PO (08:10)
[2023-04-28] MEDS: pregabalin 150 mg Capsule 300 MG PO (08:11)
--- NOTE | 2023-04-28 08:43 | P.ANESASSM_ITS ---
Pre-Anesthetic Assessment Height/Weight: Height 1.63 m Weight 113.398 kg Temp Pulse Resp BP Pulse Ox O2 Del Method 97.5 F L 79 18 154/95 100 Room Air 04/28/23 07:59 04/28/23 07:59 04/28/23 07:59 04/28/23 07:59 04/28/23 07:59 04/28/23 07:59 Preop Diagnosis: Left flatfoot, hallux valgus and second hammertoe. Operation Date: 04/28/23 10:10 Proposed Procedures p Arthrodesis Foot/Left Kidner, Left Lapidus, Left hallux interphalangeal joint fusion/Left subtalar joint fusion,(Left) - Iglesia Payan DPM s Hammertoe Correction/Left second hammertoe correction(Left) - Iglesia Payan DPM s Tendon Transfer Foot/ Left foot flexor tendon transfer(Left) - Iglesia Payan DPM Familial anesthetic complications: None Was Beta Shanika taken within 24 hours: N/A Was Clonidine taken within 24 hours: N/A Last intake: Intake Last Liquid Date 04/27/23 Last Liquid Time 22:00 Last Solid Date 04/27/23 Last Solid Time 20:00 Social No alcohol and No tobacco Exam alert, oriented x 3, clear to auscultation bilaterally and regular rate & rhythm Airway Mallampati: Class III Dentition: chipped CV/HEM Hypertension GI Gastroesophageal Reflux Disease Metabolic Morbid Obesity Musc/skel Lower Back Pain and Rheumatoid Arthritis Anesthetic Plan ASA status: 2 Anesthesia: General and Regional (specify below) Risk of > 500 ml blood loss (7ml/kg in children): No Medications/Allergies Home Medications Medication Instructions Recorded Confirmed Last Taken Type Sole Supports #1 ea 03/13/20 04/06/23 07/24/22 Rx tizanidine 2 mg capsule (Zanaflex) 2 mg PO BID PRN back spasm 11/19/20 04/28/23 09/30/22 History atorvastatin 40 mg tablet 40 mg PO DAILY 02/24/22 04/28/23 04/27/23 History cholecalciferol (vitamin D3) 50 10,000 unit PO DAILY 02/24/22 04/28/23 04/27/23 History mcg (2,000 unit) tablet folic acid 1 mg tablet 1 mg PO DAILY 02/24/22 04/28/23 04/27/23 History omeprazole 20 mg capsule,delayed 20 mg PO DAILY 02/24/22 04/28/23 04/27/23 History release rizatriptan 10 mg tablet 10 mg PO Q2H PRN Migraine Headache 02/24/22 04/28/23 07/24/22 History cetirizine 10 mg capsule (Zyrtec) 10 mg PO DAILY 07/22/22 04/28/23 04/27/23 History amlodipine 5 mg tablet (Norvasc) 10 mg PO DAILY 08/26/22 04/28/23 04/28/23 History acetaminophen 325 mg capsule 325 mg PO Q4H PRN fever or 01/11/23 04/28/23 Unknown Rx postoperative pain #60 caps ibuprofen 800 mg tablet 800 mg PO TID PRN pain #60 tabs 01/11/23 04/28/23 Unknown Rx Crutches #1 ea 04/27/23 Unknown Rx Knee Scooter #1 ea 04/27/23 Unknown Rx ferrous sulfate 325 mg (65 mg 325 mg PO DAILY 04/27/23 04/28/23 04/27/23 History iron) tablet (Iron (ferrous sulfate)) Multi Vitamin 1 tab PO DAILY 04/28/23 04/28/23 04/27/23 History docusate sodium 100 mg capsule 100 mg PO BID PRN Constipation 04/28/23 04/28/23 Unknown History (Colace) magnesium 200 mg tablet 200 mg PO DAILY 04/28/23 04/28/23 04/27/23 History pregabalin 50 mg capsule 50 mg PO DAILY 04/28/23 04/28/23 04/27/23 History Allergies Allergy/AdvReac Type Severity Reaction Status Date / Time adhesive tape Allergy Intermediate ALGY-Rash Verified 04/28/23 07:55 dermabond Allergy skin Uncoded 04/28/23 07:55 irratation hormons in control AdvReac migraine Uncoded 04/28/23 07:55 PFSH Anesthesia Medical History Left hip pain Sacroiliac inflammation Joint pain Onychodystrophy Hypertrophy of tongue Undifferentiated connective tissue disease History of recurrent miscarriages Immunization counseling High risk medication use Inflammatory arthritis Positive DANIELA (antinuclear antibody) Surgical History History of total vaginal hysterectomy (~01/10/23) TVH performed by Milind at [facility] for ABU, fibroids. benign pathology. History of hysteroscopy (~10/04/22) Hysteroscopy D&C via Myosure. Performed by Milind [facility] for AUB and PP. History of lumpectomy of right breast 07/25/22 Dr. Huerta History of foot surgery 08/23/19ubtalor infusion repair tendon and extend Achilles tendon Postoperative state History of cholecystectomy History of appendectomy History of toe surgery Family History Other Chronic kidney disease (CKD) Diabetes H/O scleroderma Hyperlipidemia Hypertension Lupus Rheumatoid arthritis Denies family history of CAD (coronary artery disease) Lung disease Cancer Stroke Data Anesthesia Cardiac Studies: No Data to Display
--- NOTE | 2023-04-28 09:00 | ANES.PROC ---
Anesthesia Procedures Procedure/Date: 04/28/23 Nerve Block ^: Nerve Block 1: Main Anesthesia: general anesthesia Time Out Performed: Yes Consent: requested by attending/covering physician, from patient, from other, risks and benefits reviewed and patient agrees to proceed Nerve block location: popliteal (L) Anesthesia monitors applied: pulse oximetry, EKG, BP cuff and oxygen Nerve block position: supine Anesthetic Used: ropivicaine 0.5% (30 ml) and with decadron (4 mg) Ultrasound used to: recognize landmarks Nerve Stimulator Used?: No Interscalene/Femoral BLK: 4 stimuplex 21 g needle used for position and inplane approach, visualize local anesthetic spread and no vascular puncture identified Patient Tolerated Procedure: well and no complications
--- NOTE | 2023-04-28 10:03 | P.HPUD_ITS ---
Surgery/Procedure H&P Update DATE OF PROCEDURE: April 28, 2023 DATE H&P PERFORMED: 04/06/23 H&P UPDATE INFORMATION: I have reviewed H&P completed within last 30 days, I have examined patient prior to procedure, No changes to prior documentation and [place] [facility] [place] indicated PREOP DIAGNOSIS: Left flatfoot, hallux valgus and second hammertoe. PLANNED PROCEDURE: Operation Date: 04/28/23 10:10 Proposed Procedures p Arthrodesis Foot/Left Kidner, Left Lapidus, Left hallux interphalangeal joint fusion/Left subtalar joint fusion,(Left) - Iglesia Payan DPM s Hammertoe Correction/Left second hammertoe correction(Left) - IVY Soria Tendon Transfer Foot/ Left foot flexor tendon transfer(Left) - Iglesia Payan DPM
[2023-04-28] MEDS: ceFAZolin 2,000 MG in sodium chloride 0.9% (plus) 50 ML 100 MG IV (10:37)
[2023-04-28] MEDS: BUPivacaine liposome 13.3 mg/mL SDV 10 mL 133 MG INFILTRATI ×2 (11:14→11:15)
--- NOTE | 2023-04-28 12:49 | W.PM.BPON ---
Date of Procedure: 04/28/23 Surgeon: Iglesia Payan DPM Management Coordinator(s): Bobo PORRAS Heather, Ashton Procedure(s) performed: Flatfoot reconstruction with arthrodesis left foot. Left Lapidus, left hallux interphalangeal joint arthrodesis, left second hammertoe correction, left deep flexor tendon transfer. Findings of the procedure(s): None Estimated blood loss: 5 Specimen(s) removed: None Post-operative diagnosis: Left flatfoot, left foot flexor tendon contracture, left hallux valgus, left second hammertoe No complications with anesthesia or surgery
--- NOTE | 2023-04-28 12:51 | P.OP_ITS ---
Operative Report Date of procedure: April 28, 2023 Pre-op diagnosis: Foot pain, left M79.672, Bunion, left M21.612, Hammertoe of second toe of left foot M20.42, Posterior tibial tendon dysfunction, left M76.822, Acquired left flat foot M21.42, Hallux valgus (acquired), left foot M20.12, Hammertoe of left foot M20.42 and Contracture, left foot M24.575 Post-op diagnosis: Foot pain, left M79.672, Bunion, left M21.612, Hammertoe of second toe of left foot M20.42, Posterior tibial tendon dysfunction, left M76.822, Acquired left flat foot M21.42, Hallux valgus (acquired), left foot M20.12, Hammertoe of left foot M20.42 and Contracture, left foot M24.575 Procedure done: Left subtalar joint fusion. CPT code 12315 Left Lapidus bunionectomy. CPT code 64945 Left hallux interphalangeal joint fusion. CPT code 95614 Left foot deep flexor tendon transfer. CPT code 62458 Left second hammertoe correction. CPT code 61706 Implants: [place] 7 mm partially-threaded cannulated headed screw x 2 at subtalar joint fusion [place] primary Lapidus plate with 3.5 millimeter screws and 4 mm homerun screw [place] 4 mm screw at hallux interphalangeal arthrodesis site [place] 2 mm screw at second hammertoe correction 3-0 Vicryl, 4-0 Vicryl, 4-0 nylon Specimens removed/disposition: None Pathology: None Surgeon: Iglesia Payan DPM Photographer'S Model: Bobo PORRAS Ashton, Heather Estimated blood loss: 5 1 hour 43 minutes IV fluids: See intraoperative documentation Urine output: See intraoperative documentation Complications: None Brief History: Patient examined evaluated, findings and treatment options discussed with patient at length. She states that her pain has been gradually increasing. 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 She is wishing to pursue the same type surgery that was done on her right foot due to painful flatfoot. She has failed conservative measures consisting of anti- inflammatories, stretching, supportive shoes and orthotics. States that her left foot pain prevents her from carrying her everyday activities and affects her overall quality of life. I reviewed at length with the patient, the risks, potential complications, benefits, alternatives, expectations, and typical outcomes associated with the surgery. The risks and potential complications were explained in detail, including but not limited to infection, wound dehiscence or soft tissue complications, bleeding and hematoma, chronic edema, neuritis or ne rve damage producing numbness or chronic pain, CRPS, failure to relieve pain or worsening pain, thick / painful / unsightly scar, limited motion / stiffness, malposition, delayed union, malunion, or nonunion, fracture, reaction to implants, anesthetic complications, venous thromboembolism, and deformity recurrence. I discussed the notion of no regrets with the patient as it pertains to complications and outcomes. The patient seemed to understand the nature of the proposed care and required convalescence. They asked appropriate questions, answered to their satisfaction. They are aware no guarantees can be made as to a satisfactory outcome and they understand there may be other possible unforeseen complications or outcomes not listed here that will be treated accordingly if they arise. There were no written or implied guarantees given to the patient. They gave informed consent to proceed. Discussed left subtalar joint arthrodesis, left Lapidus bunionectomy, left Procedure: Under mild sedation patient was brought to the operating room and placed onto the operating table in supine position. A timeout was performed. Anesthesia was then administered by the anesthesia service. Of note left popliteal block was performed per anesthesia preoperatively. Well-padded pneumatic tourniquet applied to the left high calf. Left lower extremity was scrubbed, prepped and draped utilizing normal aseptic technique. Left foot was then exanguinated with an Esmarch bandage and tourniquet inflated to 250 mmHg. Attention was directed to the left foot where pes planus foot type was appreciated. Calcaneal valgum also appreciated. Sinus tarsi incision was performed through skin with #15 blade at the left lateral foot with dissection carried down to the layer of joint capsule and periosteum at the sinus tarsi, extensor digitorum brevis origin was reflected and protected dorsally. Care was taken to retract and preserve neurovascular and tendinous structures. All bleeders were ligated and cauterized as necessary. Capsular incision was performed into the left sinus tarsi which was then distracted with Steinmann pins and intermittent self-retaining retractor, subtalar joint was prepped for arthrodesis by denuding all articular surface with a joint resurfacing total, curettage followed by saline flush. Subchondral drilling was then performed both at the inferior surface of the talus and superior surface of the calcaneus at the subtalar joint which was then held in neutral and fixated utilizing parallel 7 mm screws with excellent bony apposition and compression noted, congruent cyma line on lateral view appreciated, ankle AP view confirmed centralized location of hardware within the body and neck of the talus. The incision was then irrigated with saline solution and closed in a layered fashion. Capsule was reapproximated 3-0 Vicryl. Extensor digitorum brevis origin was reinserted with 3-0 Vicryl, subcutaneous tissue with 4-0 Vicryl and skin with 4-0 nylon. Attention was then directed to the bunion deformity of the left foot where a planned Lapidus procedure was carried out both to reduce the first intermetatar wilber angle as well as plantarflex to help maintain a longitudinal arch. Incision was performed through skin with a #15 blade medial and parallel to the extensor hallucis longus tendon with dissection carried down to the layer of periosteum and joint capsule utilizing sharp and blunt technique. Care was taken to retract and preserve neurovascular and tendinous structures. All bleeders were ligated and cauterized as necessary. Incision Was Performed in the First Metatarsal Base and Medial Cuneiform Were Distracted with Self-Retaining Retractor Followed by Removal of Cartilage Surfaces in Preparation for Arthrodesis. Incision was irrigated with sterile saline solution and further prepped for arthrodesis via fenestrating drill bit. First intermetatarsal angle was reduced with first metatarsal parallel to the second and sesamoids in neutral position this was then fixated with a [place] Lapidus plate at the dorsal medial aspect of the arthrodesis site with 3.5 mm locking screws and 4 mm homerun screw with excellent bony apposition and compression noted. AP, oblique and lateral views confirmed excellent placement of hardware without violation of adjacent joints. Intermetatarsal angle has been reduced near to 0 and sesamoid position is neutral. The incision was irrigated and closed in a layered fashion with periosteum and joint capsule reapproximated 3-0 Vicryl, subcutaneous tissue with 4-0 Vicryl and skin with 4-0 nylon. Attention was then directed to the hallux malleus deformity with valgus to component. Longitudinal incision was performed dorsally over the left hallux through skin directly over the extensor hallucis longus tendon. This was transected at the level of the hallux interphalangeal joint and the hallux interphalangeal joint was prepped for arthrodesis with sagittal saw. Subchondral drilling was performed and the hallux was held in neutral position and fixated with excellent bony apposition and compression noted with 4 mm [place] screw. Care was taken not to violate the metatarsal phalangeal joint this was confirmed in AP, oblique and lateral views. The incision was irrigated with saline solution and capsular structures reapproximated 3-0 Vicryl, extensor hallucis longus tendon reapproximated with 3-0 Vicryl and skin with 4-0 nylon. Attention was directed to the left second toe where a linear longitudinal incision was performed over the proximal interphalangeal joint through skin with dissection carried down to the extensor tendon which was transected at the level of the proximal interphalangeal joint, the base of the intermediate phalanx and head of the proximal phalanx were transected with a sagittal saw and under distraction was able to visualize the flexor digitorum longus tendon this was split longitudinally and transected at its most distal portion this was then wrapped both medial and laterally and is hemisections and and reinserted and transferred effectively dorsally to the extensor tendons with 4-0 Vicryl. The incision was then irrigated with copious amounts of sterile skin solution. After tendon transfer sagittal plane component was improve to near neutral. Attention was then directed to the second toe proximal interphalangeal joint which was then held in neutral and hammertoe correction was performed with intramedullary screw confirmed in all 3 planes to be centrally localized within the distal, intermediate and proximal phalanx intramedullary canal and not crossing the second metatarsal phalangeal joint with excellent bony apposition and compression noted at arthrodesis site of the left second toe. Incision was irrigated with saline solution extensor tendon was then reapproximated 4-0 Vicryl and skin with 4-0 nylon. All incisions were dressed with Adaptic, sterile 4 x 4's, Kerlix and well-padded multilayer posterior compressive splint/Jon splint. Tourniquet was deflated and a prompt hyperemic response was noted to the distal digits of the left foot. Patient tolerated the procedure and anesthesia well and was transferred to the PACU with vital signs stable and vascular status intact. Following a period of postoperative monitoring she will be discharged home is to be nonweightbearing, elevate left foot while resting. Was given at home care instructions, pain medication, follow-up instructions and my cell phone number to contact me with any questions or concerns.
--- NOTE | 2023-04-28 13:07 | XRR_ITS ---
PROCEDURE INFORMATION: Exam: XR Left Foot Exam date and time: 04/28/2023 12:21 PM Age: 37 years old Clinical indication: Device placement; Other: Left foot; Prior surgery; Surgery date: Post-operative (0-2 days); Additional info: Post op TECHNIQUE: Imaging protocol: Radiologic exam of the left foot. Views: 3 or more views. COMPARISON: CR XR foot LT min 3V* [id number] 11/17/2022 8:39 AM FINDINGS: Bones/joints: Postoperative radiographs status post arthrodesis of the posterior subtalar joint with [address], arthrodesis of the great toe and 2nd toe interphalangeal joints, and arthrodesis of the 1st tarsometatarsal joint with medial plate and screw fixation. Soft tissues: Postoperative soft tissue edema/air noted. XR/XR foot LT min 3V* [id number] IMPRESSION: 1. Postoperative changes of the hindfoot, midfoot and forefoot.
--- NOTE | 2023-04-28 14:25 | ANE.PACU2 ---
Inpatient post-anesthesia follow up: Airway intact: Yes Vital signs: Temperature 97.4 F Pulse Rate 92 Respiratory Rate 16 Blood Pressure 149/89 Pulse Oximetry 94 Oxygen Delivery Me thod Room Air Oxygen Flow Rate 6 Fraction of Inspir ed Oxygen Hydration adequate: Yes Nausea and vomiting: No Pain level: 1 Mental status: Baseline
== END 2023-04-28 14:25 | disposition home or self-care (01) ==
PROVIDERS: PCP Family Medicine; Visit Provider Podiatrist Foot & Ankle Surgery
PROC: (CPT 28740; principal; 2023-04-28 10:00)
PROC: (CPT 28285; 2023-04-28 10:00)
PROC: (CPT 27691; 2023-04-28 10:00)
DX: M21.612 Bunion of left foot (principal); M20.42 Other hammer toe(s) (acquired), left foot; M76.822 Posterior tibial tendinitis, left leg; M20.12 Hallux valgus (acquired), left foot; M24.575 Contracture, left foot; M21.42 Flat foot [pes planus] (acquired), left foot; I10 Essential (primary) hypertension; E66.01 Morbid (severe) obesity due to excess calories; Z68.41 Body mass index [BMI] 40.0-44.9, adult; M06.9 Rheumatoid arthritis, unspecified
CPT/HCPCS: 27691; 28285; 28297; 28725; 28755; 73630; 76000; C1713; C9290; J0131; J0690; J1100; J1200; J1885; J2250; J2405; J2704; J2795; J3010; J7030

== ENCOUNTER → 2023-05-11 07:20 | Outpatient (BNVA) | payer MEDICAID, SELFPAY | PROVIDERS: PCP Family Medicine; Visit Provider Podiatrist Foot & Ankle Surgery | DX: Z98.890 Other specified postprocedural states (principal) | CPT/HCPCS: 73630 ==

== ENCOUNTER → 2023-05-25 10:53 | Outpatient (BNVA) | payer MEDICAID, SELFPAY | PROVIDERS: PCP Family Medicine; Visit Provider Podiatrist Foot & Ankle Surgery | DX: Z98.890 Other specified postprocedural states (principal) | CPT/HCPCS: 73630 ==

== ENCOUNTER → 2023-06-08 07:50 | Outpatient (BNVA) | payer MEDICAID, SELFPAY | PROVIDERS: PCP Family Medicine; Visit Provider Podiatrist Foot & Ankle Surgery | DX: Z98.890 Other specified postprocedural states (principal) | CPT/HCPCS: 73630 ==

== ENCOUNTER → 2023-06-21 09:05 | Outpatient (BNVA) | payer MEDICAID, SELFPAY | PROVIDERS: PCP Family Medicine; Visit Provider Podiatrist Foot & Ankle Surgery | DX: Z98.890 Other specified postprocedural states (principal) | CPT/HCPCS: 73630 ==

== ENCOUNTER → 2023-07-06 12:43 | Outpatient (BNVA) | payer MEDICAID, SELFPAY | PROVIDERS: PCP Family Medicine; Visit Provider Podiatrist Foot & Ankle Surgery | DX: Z98.890 Other specified postprocedural states (principal) | CPT/HCPCS: 73630 ==

== ENCOUNTER → 2023-08-10 12:48 | Outpatient (BNVA) | payer MEDICAID, SELFPAY | PROVIDERS: PCP Family Medicine; Visit Provider Podiatrist Foot & Ankle Surgery | DX: Z98.890 Other specified postprocedural states (principal) | CPT/HCPCS: 73630 ==

== ENCOUNTER 2023-09-21 09:06 | Day surgery (SDC) | payer MEDICAID, SELFPAY ==
[2023-09-21] VITALS (11 sets, daily range): BP systolic 130–187; BP diastolic 81–109; PULSE 70–98; RESP 14–18; TEMP 36.1–36.6; O2SAT 95–100; BMI 41.3
--- NOTE | 2023-09-21 09:41 | W.PM.OPSUD ---
Surgery/Procedure H&P Update DATE OF PROCEDURE: September 21, 2023 DATE H&P PERFORMED: 08/25/23 H&P UPDATE INFORMATION: I have reviewed H&P completed within last 30 days, I have examined patient prior to procedure and No changes to prior documentation PREOP DIAGNOSIS: Right wrist de Quervain's disease PRIMARY INDICATION FOR PROCEDURE: Right wrist de Quervain's disease PLANNED PROCEDURE: Operation Date: 09/21/23 10:35 Proposed Procedures p Dequervain Release(Right) - Hector Luna DO
[2023-09-21] MEDS: scopolamine 1.5 Patch 1 PATCH TRANSDERMA (09:51)
[2023-09-21] MEDS: acetaminophen 1,000 MG/100 ML PIGGYBACK 400 MG IV (09:52)
[2023-09-21] MEDS: ketorolac 30 mg/mL INJ IVP (09:52)
[2023-09-21] MEDS: sodium chloride 0.9% 1,000 ML 30 ML IV (09:54)
--- NOTE | 2023-09-21 10:04 | P.ANESASSM_ITS ---
Pre-Anesthetic Assessment Height/Weight: Height 1.63 m Weight 109.316 kg Temp Pulse Resp BP Pulse Ox O2 Del Method 97.0 F L 98 18 136/93 99 Room Air 09/21/23 09:24 09/21/23 09:24 09/21/23 09:24 09/21/23 09:24 09/21/23 09:24 09/21/23 09:32 Preop Diagnosis: Right wrist de Quervain's disease Operation Date: 09/21/23 10:35 Proposed Procedures p Dequervain Release(Right) - Hector Jeremy, DO Familial anesthetic complications: none Was Beta Shanika taken within 24 hours: N/A Was Clonidine taken within 24 hours: N/A Last intake: Intake Last Liquid Date 09/20/23 Last Liquid Time 23:00 Last Solid Date 09/20/23 Last Solid Time 20:00 Social No alcohol and No tobacco Exam alert, oriented x 3, clear to auscultation bilaterally and regular rate & rhythm Airway Mallampati: Class III Dentition: chipped CV/HEM Hypertension GI Gastroesophageal Reflux Disease Metabolic Morbid Obesity Musc/skel Lower Back Pain and Rheumatoid Arthritis Anesthetic Plan ASA status: 3 Anesthesia: MAC Risk of > 500 ml blood loss (7ml/kg in children): No Medications/Allergies Home Medications Medication Instructions Recorded Confirmed Last Taken Type Sole Supports #1 ea 03/13/20 08/10/23 07/24/22 Rx tizanidine 2 mg capsule (Zanaflex) 2 mg PO BID PRN back spasm 11/19/20 09/20/23 09/30/22 History atorvastatin 40 mg tablet 40 mg PO DAILY 02/24/22 09/20/23 09/20/23 History cholecalciferol (vitamin D3) 50 10,000 unit PO DAILY 02/24/22 09/20/23 09/20/23 History mcg (2,000 unit) tablet folic acid 1 mg tablet 1 mg PO DAILY 02/24/22 09/20/23 09/20/23 History omeprazole 20 mg capsule,delayed 20 mg PO DAILY 02/24/22 09/20/23 09/20/23 History release rizatriptan 10 mg tablet 10 mg PO Q2H PRN Migraine Headache 02/24/22 09/20/23 01/10/23 History cetirizine 10 mg capsule (Zyrtec) 10 mg PO DAILY 07/22/22 09/20/23 09/20/23 History amlodipine 5 mg tablet (Norvasc) 10 mg PO DAILY 08/26/22 09/20/23 09/20/23 History ferrous sulfate 325 mg (65 mg 325 mg PO DAILY 04/27/23 09/20/23 09/20/23 History iron) tablet (Iron (ferrous sulfate)) Multi Vitamin 1 tab PO DAILY 04/28/23 09/20/23 09/20/23 History docusate sodium 100 mg capsule 100 mg PO BID PRN Constipation 04/28/23 09/20/23 Unknown History (Colace) magnesium 200 mg tablet 200 mg PO DAILY 04/28/23 09/20/23 09/20/23 History pregabalin 50 mg capsule 50 mg PO DAILY 04/28/23 09/20/23 09/20/23 History meloxicam 15 mg tablet 15 mg PO DAILY #30 tabs 08/10/23 09/20/23 09/14/23 Rx acetaminophen 325 mg capsule 650 mg PO Q4H PRN fever or 09/20/23 09/20/23 Unknown History postoperative pain ibuprofen 200 mg capsule 800 mg PO Q6H PRN Pain 09/20/23 09/20/23 09/06/23 History tramadol 50 mg tablet 50 mg PO Q6H PRN pain #20 tabs 09/21/23 Unknown Rx Allergies Allergy/AdvReac Type Severity Reaction Status Date / Time adhesive tape Allergy Intermediate ALGY-Rash Verified 08/25/23 09:47 dermabond Allergy skin Uncoded 08/25/23 09:47 irratation hormons in control AdvReac migraine Uncoded 08/25/23 09:47 Current Medications Generic Name Dose Route Start Last Admin Trade Name Freq PRN Reason Stop Dose Admin Sodium Chloride 1,000 mls @ 30 mls/hr 09/21/23 09:15 09/21/23 09:54 Sodium Chloride 0.9% IV 09/22/23 09:14 30 mls/hr .Q24H JOSELITO Administration Scopolamine 1 patch 09/21/23 09:15 09/21/23 09:51 Scopolamine 1.5 Patch TRANSDERMA 1 patch ONCE PRN Administration anesthetic related nausea PFSH Anesthesia Medical History Left hip pain Sacroiliac inflammation Joint pain Onychodystrophy Hypertrophy of tongue Undifferentiated connective tissue disease History of recurrent miscarriages Immunization counseling High risk medication use Inflammatory arthritis Positive DANIELA (antinuclear antibody) Surgical History History of total vaginal hysterectomy (~01/10/23) TVH performed by Milind at [facility] for ABU, fibroids. benign pathology. History of hysteroscopy (~10/04/22) Hysteroscopy D&C via Myosure. Performed by Milind [facility] for AUB and PP. History of lumpectomy of right breast 07/25/22 Dr. Huerta History of foot surgery 08/23/19ubtalor infusion repair tendon and extend Achilles tendon Postoperative state History of cholecystectomy History of appendectomy History of toe surgery Family History Other Chronic kidney disease (CKD) Diabetes H/O scleroderma Hyperlipidemia Hypertension Lupus Rheumatoid arthritis Denies family history of CAD (coronary artery disease) Lung disease Cancer Stroke Social History Smoking and tobacco/nicotine status: unknown if used tobacco/nicotine Data Anesthesia Cardiac Studies: No Data to Display
[2023-09-21 10:37] LABS: Anion Gap 17.4 (5-19); Blood Urea Nitrogen 8 mg/dL (6-20); Calcium 9.7 mg/dL (8.5-10.5); Carbon Dioxide 23 mmol/L (22-29); Chloride 101 mmol/L (98-107); Creatinine Clr Calc Pharmacy 117.4775; Glomerular Filtration Rate 81.2 mL/min (90-130); Glucose 116 mg/dL (65-115); Osmolality Calculated 283 mOsm/kg (285-295); Potassium 4.4 mmol/L (3.5-5.1); Sodium 137 mmol/L (136-145)
[2023-09-21] MEDS: ceFAZolin 2,000 MG in sodium chloride 0.9% (plus) 50 ML 100 MG IV (10:52)
[2023-09-21] MEDS: BUPivacaine 0.5% INJ 10 mL 5 ML INJECTION (11:17)
[2023-09-21] MEDS: lidocaine 2% INJ 20 mL 5 ML INJECTION (11:17)
--- NOTE | 2023-09-21 11:30 | P.BOP_ITS ---
Date of Procedure: [09/21/2023] Surgeon: Hector Luna DO Oil Well Directional Surveyor(s): None Procedure(s) performed: Right wrist de Quervain's release Findings of the procedure(s): Patient was found to have right wrist de Quervain's disease with a subsheath of the EPB tendon. At this point in time underwent right wrist de Quervain's release without any issues or complications taken PACU in stable condition. Estimated blood loss: 2 mL Specimen(s) removed: None Post-operative diagnosis: Right wrist de Quervain's disease
--- NOTE | 2023-09-21 11:31 | PM.OP ---
Operative Report Date of procedure: September 21, 2023 Surgeon: Hector Luna DO Procedure: Preop Diagnosis: Right wrist de Quervain's disease Post-op diagnosis: Same Procedure done: 1. Right Wrist de Quervain's release Surgeon: Hector Luna DO Anesthesia: MAC (Local) Estimated blood loss: 2 mL Tourniquet time 4 minutes IV fluids: See anesthesia record Complications: None Findings: See operative report narrative Condition: stable Disposition: same day Brief History: Patient is a pleasant 32 year-old female with right wrist de Quervain's disease. patient has been worked up in the outpatient setting findings and physical examination consistent with this. Patient's failed conservative treatment up to this point. We detailed out patient's risk benefits complication alternatives with surgical and nonsurgical treatment options. Through shared decision making, patient agrees to proceed with surgical intervention of the right wrist de Quervain's release. Patient understands and agrees with current plan. All questions answered. Procedure: Patient seen and evaluated in the preoperative holding area. Consent was reviewed and signed with patient. Correct extremity was marked. Patient was seen evaluated by the anesthesia department once cleared for surgery was brought back to the operative suite. Patient was kept on [facility] in supine position all bony prominences were well-padded patient properly secured to the bed. Right upper extremity was then placed onto an armboard. A nonsterile tourniquet was applied to the Right upper arm. Patient underwent anesthesia per the anesthesia department. Patient's Right upper extremity was then prepped and draped in standard orthopedic fashion. Final timeout performed. Patient received appropriate preoperative antibiotics. Under sterile aseptic technique patient received local anesthesia over the preplanned her veins release incisions Esmarch was used to exsanguinate the Right upper extremity and tourniquet was insufflated to 250 mmHg. Next I then proceeded with the right wrist de Quervain's release.? I marked out the first dorsal compartment a small longitudinal incision was made directly over this.? Sharp scalpel incision was made through skin only switch to Littler dissection scissors and protected the superficial branch of the radial nerve as well as neurovascular structures.? I then had direct visualization of the first dorsal compartment sharp scalpel incision I used to then simply incise the first dorsal compartment I switched dissection scissors to release this both proximally and distally to its entirety. The EPB tendon did have a subsheath which was subsequently released as well.? I then subsequently used a rag nail and mobilized each tendon that verify no areas of entrapment and this completed the right wrist de Quervain's release. Wound was then thoroughly irrigated. Tourniquet deflated. Hemostasis satisfactory with bipolar electrocautery. I then closed the incision in layered fashion 3-0 Vicryl suture interrupted as well as with interrupted nylon stitches. Xeroform 4 x 4's and a bulky soft dressing was applied. Patient was then awakened from anesthesia and taken to PACU in stable condition. Patient tolerated procedure without complications. Disposition: Patient taken to PACU in stable condition recovering well. Dressing clean dry and intact. Patient will receive appropriate discharge instructions as well as pain medication postoperatively. Patient to follow-up with me in the office in 2 weeks. They understand they may be weightbearing as tolerated to the right hand. Patient should keep incision clean dry and intact. Patient understands if any questions or concerns may contact the office.
[2023-09-21] MEDS: metoprolol tartrate 1 mg/1 mL SDV 5 mL 2 MG IVP (11:40)
--- NOTE | 2023-09-21 13:45 | ANE.PACU2 ---
Inpatient post-anesthesia follow up: Airway intact: Yes Vital signs: Temperature 97.9 F Pulse Rate 79 Respiratory Rate 16 Blood Pressure 130/81 Pulse Oximetry 96 Oxygen Delivery Me thod Room Air Oxygen Flow Rate 6 Fraction of Inspir ed Oxygen Hydration adequate: Yes Nausea and vomiting: No Pain level: 1 Mental status: Baseline
--- NOTE | 2023-09-21 13:59 | SUR.PHASEII ---
13:00 ROM, SENSATION, AND CAP REFILL OF RIGHT HAND FINGERS.
== END 2023-09-21 13:45 | disposition home or self-care (01) ==
PROVIDERS: Anesthesiology; PCP Family Medicine; Visit Provider Student in an Organized Health Care Education/Training Program
PROC: (CPT 25000; principal; 2023-09-21 10:35)
DX: M65.4 Radial styloid tenosynovitis [de Quervain] (principal); I10 Essential (primary) hypertension; K21.9 Gastro-esophageal reflux disease without esophagitis; E66.01 Morbid (severe) obesity due to excess calories; Z68.41 Body mass index [BMI] 40.0-44.9, adult; M06.9 Rheumatoid arthritis, unspecified
CPT/HCPCS: 25000; 80048; J0131; J0690; J1885; J2250; J2704; J3010; J3490; J7030

== ENCOUNTER → 2023-10-10 08:42 | Outpatient (BNVA) | payer MEDICAID, SELFPAY | PROVIDERS: PCP Family Medicine; Visit Provider Orthopaedic Surgery | DX: M54.50 Low back pain, unspecified (principal) | CPT/HCPCS: 72110 ==

== ENCOUNTER 2023-11-14 10:55 | Emergency (ER) | payer MEDICAID, SELFPAY ==
[2023-11-14 11:17] VITALS: BP 148/99; PULSE 92; RESP 18; TEMP 36.4; O2SAT 98; BMI 42.0
[2023-11-14 13:03] VITALS: BP 139/96; PULSE 91; RESP 16; O2SAT 99
--- NOTE | 2023-11-14 13:08 | ECG_ITS ---
[facility] Test Date: 2023-11-14 Pat Name: Gayle Geronimo Department: Room: Gender: Female Hospital Nurse: : 1985 Requested By: Lonny Burgess Order Number: [id number] Krishnamurthy MD: Christiano Keating M.D. Measurements Intervals [place] Rate: 92 P: 54 OR: 163 QRS: 53 QRSD: 78 T: 47 QT: 343 QTc: 425 Interpretive Statements SINUS RHYTHM No previous ECG available for comparison Electronically Signed On 11-14-2023 16:24:10 CDT by Christiano Keating M.D. [id number]
[2023-11-14] MEDS: ketorolac 30 mg/mL INJ IM (13:13)
--- NOTE | 2023-11-14 13:17 | ED_ITS ---
HPI - General Adult General: Chief complaint: General Medical Stated complaint: abn lab (high bp) Time Seen by Provider: 11/14/23 13:00 Source: patient Mode of arrival: ambulatory Limitations: no limitations History of Present Illness: 38-year-old female states she has a hist ory of hypertension she states that she has not had her blood pressure meds for the last few days states she went to [facility] to pick them up she did pick them up and has not taken them she did take her blood pressure while at [facility] and was in the 160s states she has had a slight headache states she gets migraines and this is typical to her headaches denies this being the worst headache of her life. She denies any vomiting or diarrhea. Associated symptoms: Reports headache(s); Deny chest pain, dyspnea, nausea, rash or vomiting Related Data Home Medications Medication Instructions Recorded Confirmed tizanidine 2 mg capsule (Zanaflex) 2 mg PO BID PRN back spasm 11/19/20 10/24/23 atorvastatin 40 mg tablet 40 mg PO DAILY 02/24/22 10/24/23 cholecalciferol (vitamin D3) 50 10,000 unit PO DAILY 02/24/22 10/24/23 mcg (2,000 unit) tablet folic acid 1 mg tablet 1 mg PO DAILY 02/24/22 10/24/23 omeprazole 20 mg capsule,delayed 20 mg PO DAILY 02/24/22 10/24/23 release rizatriptan 10 mg tablet 10 mg PO Q2H PRN Migraine Headache 02/24/22 10/24/23 cetirizine 10 mg capsule (Zyrtec) 10 mg PO DAILY 07/22/22 10/24/23 amlodipine 5 mg tablet (Norvasc) 10 mg PO DAILY 08/26/22 10/24/23 ferrous sulfate 325 mg (65 mg 325 mg PO DAILY 04/27/23 10/24/23 iron) tablet (Iron (ferrous sulfate)) Multi Vitamin 1 tab PO DAILY 04/28/23 10/24/23 docusate sodium 100 mg capsule 100 mg PO BID PRN Constipation 04/28/23 10/24/23 (Colace) magnesium 200 mg tablet 200 mg PO DAILY 04/28/23 10/24/23 pregabalin 50 mg capsule 50 mg PO DAILY 04/28/23 10/24/23 acetaminophen 325 mg capsule 650 mg PO Q4H PRN fever or 09/20/23 10/24/23 postoperative pain ibuprofen 200 mg capsule 800 mg PO Q6H PRN Pain 09/20/23 10/24/23 Previous Rx's Medication Instructions Recorded Sole Supports #1 ea 03/13/20 tramadol 50 mg tablet 50 mg PO Q6H PRN pain #20 tabs 09/21/23 meloxicam 15 mg tablet 15 mg PO DAILY #30 tabs 10/24/23 Allergies Allergy/AdvReac Type Severity Reaction Status Date / Time adhesive tape Allergy Intermediate ALGY-Rash Verified 10/24/23 08:00 dermabond Allergy skin Uncoded 10/24/23 08:00 irratation hormons in control AdvReac migraine Uncoded 10/24/23 08:00 Review of Systems Const: Denies: fever(s), chills, body aches or change in appetite Eyes: Denies: blurry vision or eye discomfort ENMT: Denies: throat pain or dental pain Card: Denies: chest pain Resp: Denies: dyspnea GI: Denies: abdominal pain, nausea, vomiting or diarrhea Musc: Denies: neck pain or back pain Skin/Breast: Denies: rash Neuro: Reports: headache(s) PFSH ED PFSH: Medical History Left hip pain Sacroiliac inflammation Joint pain Onychodystrophy Hypertrophy of tongue Undifferentiated connective tissue disease History of recurrent miscarriages Immunization counseling High risk medication use Inflammatory arthritis Positive DANIELA (antinuclear antibody) Surgical History History of total vaginal hysterectomy (~01/10/23) TVH performed by Milind gonzalez [facility] for ABU, fibroids. benign pathology. History of hysteroscopy (~10/04/22) Hysteroscopy D&C via Myosure. Performed by Milind [facility] for AUB and PP. History of lumpectomy of right breast 07/25/22 Dr. Huerta History of foot surgery 08/23/19ubtalor infusion repair tendon and extend Achilles tendon Postoperative state History of cholecystectomy History of appendectomy History of toe surgery Family History Other Chronic kidney disease (CKD) Diabetes H/O scleroderma Hyperlipidemia Hypertension Lupus Rheumatoid arthritis Denies family history of CAD (coronary artery disease) Lung disease Cancer Stroke Social History Smoking and tobacco/nicotine status: never used tobacco/nicotine Physical Exam Const: COMMON NORMALS: no acute distress, patient oriented x3 and healthy appearing HENMT: COMMON NORMALS: normocephalic and atraumatic HEAD & SCALP: normocephalic and atraumatic Neck/C-Spine: COMMON NORMALS: full ROM and supple Chest: COMMONS NORMALS: normal inspection of the chest Resp: COMMON NORMALS: normal respiratory effort, No retractions, No use of accessory muscles and clear to auscultation bilaterally AUSCULTATION: clear to auscultation bilaterally Cardio: COMMON NORMALS: regular rate, regular rhythm and No murmurs present (Cardio) RATE: regular rate RHYTHM: regular rhythm Extremity: COMMON NORMALS: normal to inspection and full ROM Neuro: COMMON NORMALS: patient oriented x3, moves all extremities and no focal motor deficits Psych: COMMON NORMALS: mental status grossly normal, Normal thought process present and cooperative THOUGHT PROCESS: Normal thought process present Skin: COMMON NORMALS: no rashes or lesions noted and no wounds GENERAL SKIN EXAM: no rashes or lesions noted Course Vital Signs: Vital signs: Vital Signs Temperature 97.6 F 11/14/23 11:17 Pulse Rate 91 11/14/23 13:03 Respiratory Rate 16 11/14/23 13:03 Blood Pressure 139/96 11/14/23 13:03 Pulse Oximetry 99 11/14/23 13:03 Oxygen Delivery Me thod Room Air 11/14/23 13:03 MDM - General Adult Medical Decision Making Patient presents with hypertension she is well-appearing here she does have a headache no signs of meningitis or subarachnoid hemorrhage she is to take her blood pressure meds as prescribed she stable for discharge she is follow-up with PCP return if worsening. Medical Records I reviewed the patient's medical records. Lab Data I reviewed the patient's lab results. No radiology studies performed this visit EKG Data EKG 1: I personally reviewed and interpreted this EKG as follows: EKG interpretation date: 11/14/23 EKG interpretation time: 13:08 Interpretation: nsr hr [address] or t wave abnormalities qrs 78 [id number] Discharge Plan Discharge Patient Disposition: Home Clinical Impression: Hypertension, Headache Condition: Stable Prescriptions: No Action (DME) Sole Supports See Rx Instructions .ROUTE .MEDSUPPLY Qty: 1 0RF Rx Instructions: As directed tizanidine [Zanaflex] 2 mg capsule 2 mg PO BID PRN (Reason: back spasm) atorvastatin 40 mg tablet 40 mg PO DAILY rizatriptan 10 mg tablet 10 mg PO Q2H PRN (Reason: Migraine Headache) Rx Instructions: do not exceed 3 doses per 24 hrs omeprazole 20 mg capsule,delayed release(DR/EC) 20 mg PO DAILY folic acid 1 mg tablet 1 mg PO DAILY cholecalciferol (vitamin D3) 50 mcg (2,000 unit) tablet 10,000 unit PO DAILY Norvasc 5 mg tablet 10 mg PO DAILY meloxicam 15 mg tablet 15 mg PO DAILY Qty: 30 2RF ibuprofen 200 mg Capsule 800 mg PO Q6H PRN (Reason: Pain) acetaminophen 325 mg capsule 650 mg PO Q4H PRN (Reason: fever or postoperative pain) tramadol 50 mg tablet 50 mg PO Q6H PRN (Reason: pain) Qty: 20 0RF Zyrtec 10 mg capsule 10 mg PO DAILY ferrous sulfate [Iron (ferrous sulfate)] 325 mg (65 mg iron) tablet 325 mg PO DAILY magnesium 200 mg Tablet 200 mg PO DAILY pregabalin 50 mg Capsule 50 mg PO DAILY Multi Vitamin 1 tab PO DAILY docusate sodium [Colace] 100 mg capsule 100 mg PO BID PRN (Reason: Constipation) Discharge Orders: Discharge ED (Routine); Ordered 11/14/23 Ordered By: Lonny Burgess Referrals: Ira Rosa DO [Primary Care Provider] - 4-7 days Discharge Diet: Advance as tolerated Discharge Activity: Resume usual activity Patient Instructions: Hypertension (ED), General Headache (ED) Coding Level of Care Code ED Composition Board Press Operator for Pawel Hooks
[2023-11-14 13:36] VITALS: BP 126/89; PULSE 90; RESP 16; O2SAT 99
== END 2023-11-14 13:38 | disposition home or self-care (01) ==
PROVIDERS: Emergency Provider Emergency Medicine; PCP Family Medicine
DX: I10 Essential (primary) hypertension (principal); R51.9 Headache, unspecified; Z79.899 Other long term (current) drug therapy; Z91.148 Patient's other noncompliance with medication regimen for other reason
CPT/HCPCS: 93005; 96372; 99284; J1885

== ENCOUNTER 2023-11-16 12:36 | Outpatient (RCR) | payer MEDICAID, SELFPAY | END 2023-12-14 23:59 | disposition home or self-care (01) | LOC: SPT 12:36 | PROVIDERS: PCP Family Medicine; Visit Provider Orthopaedic Surgery | DX: M54.9 Dorsalgia, unspecified (principal); G89.29 Other chronic pain | CPT/HCPCS: 97110; 97161 ==

== ENCOUNTER 2023-11-25 09:32 | Emergency (ER) | payer MEDICAID, SELFPAY ==
[2023-11-25 09:39] VITALS: BP 148/100; PULSE 114; RESP 17; TEMP 37.1; O2SAT 98; BMI 42.0
--- NOTE | 2023-11-25 09:46 | W.ED.SKABFB ---
HPI - Skin/Abscess/Foreign Bdy General: Chief complaint: Skin/Abscess/Foreign Body Stated complaint: rash Time Seen by Provider: 11/25/23 09:41 History of Present Illness: 38-year-old female presents emergency room she applied topical bug repellent on her skin mostly about her shoulders and face last night when she laid down to smooth and she has mild irritation redness no induration no vesicle or blistering noted she denies any difficulty breathing or swallowing Associated symptoms: Deny chills or fever(s) Related Data Home Medications Medication Instructions Recorded Confirmed tizanidine 2 mg capsule (Zanaflex) 2 mg PO BID PRN back spasm 11/19/20 10/24/23 atorvastatin 40 mg tablet 40 mg PO DAILY 02/24/22 10/24/23 cholecalciferol (vitamin D3) 50 10,000 unit PO DAILY 02/24/22 10/24/23 mcg (2,000 unit) tablet folic acid 1 mg tablet 1 mg PO DAILY 02/24/22 10/24/23 omeprazole 20 mg capsule,delayed 20 mg PO DAILY 02/24/22 10/24/23 release rizatriptan 10 mg tablet 10 mg PO Q2H PRN Migraine Headache 02/24/22 10/24/23 cetirizine 10 mg capsule (Zyrtec) 10 mg PO DAILY 07/22/22 10/24/23 amlodipine 5 mg tablet (Norvasc) 10 mg PO DAILY 08/26/22 10/24/23 ferrous sulfate 325 mg (65 mg 325 mg PO DAILY 04/27/23 10/24/23 iron) tablet (Iron (ferrous sulfate)) Multi Vitamin 1 tab PO DAILY 04/28/23 10/24/23 docusate sodium 100 mg capsule 100 mg PO BID PRN Constipation 04/28/23 10/24/23 (Colace) magnesium 200 mg tablet 200 mg PO DAILY 04/28/23 10/24/23 pregabalin 50 mg capsule 50 mg PO DAILY 04/28/23 10/24/23 acetaminophen 325 mg capsule 650 mg PO Q4H PRN fever or 09/20/23 10/24/23 postoperative pain ibuprofen 200 mg capsule 800 mg PO Q6H PRN Pain 09/20/23 10/24/23 Previous Rx's Medication Instructions Recorded Sole Supports #1 ea 01/29/21 tramadol 50 mg tablet 50 mg PO Q6H PRN pain #20 tabs 09/21/23 meloxicam 15 mg tablet 15 mg PO DAILY #30 tabs 10/24/23 cetirizine 10 mg tablet 10 mg PO BID #20 tabs 11/25/23 methylprednisolone 4 mg tablets in See Rx Instructions PO .COMPLEX 11/25/23 a dose pack (Medrol (Cricket)) #21 ea triamcinolone acetonide 0.5 % 1 applic topical BID #15 grams 11/25/23 topical cream Allergies Allergy/AdvReac Type Severity Reaction Status Date / Time adhesive tape Allergy Intermediate ALGY-Rash Verified 10/24/23 08:00 dermabond Allergy skin Uncoded 10/24/23 08:00 irratation hormons in control AdvReac migraine Uncoded 10/24/23 08:00 Review of Systems Const: Denies: fever(s) or chills Card: Denies: chest pain Resp: Denies: dyspnea GI: Denies: abdominal pain : Denies: dysuria, urinary frequency or urinary urgency Musc: Denies: neck pain or back pain Skin/Breast: Reports: rash and erythema PFSH ED PFSH: Medical History Left hip pain Sacroiliac inflammation Joint pain Onychodystrophy Hypertrophy of tongue Undifferentiated connective tissue disease History of recurrent miscarriages Immunization counseling High risk medication use Inflammatory arthritis Positive DANIELA (antinuclear antibody) Surgical History History of total vaginal hysterectomy (~01/10/23) TVH performed by Milind at [facility] for ABU, fibroids. benign pathology. History of hysteroscopy (~10/04/22) Hysteroscopy D&C via Myosure. Performed by Milind [facility] for AUB and PP. History of lumpectomy of right breast 07/25/22 Dr. Huerta History of foot surgery 08/23/19ubtalor infusion repair tendon and extend Achilles tendon Postoperative state History of cholecystectomy History of appendectomy History of toe surgery Family History Other Chronic kidney disease (CKD) Diabetes H/O scleroderma Hyperlipidemia Hypertension Lupus Rheumatoid arthritis Denies family history of CAD (coronary artery disease) Lung disease Cancer Stroke Social History Smoking and tobacco/nicotine status: never used tobacco/nicotine Physical Exam Const: COMMON NORMALS: no acute distress GENERAL APPEARANCE: cooperative and comfortable ORIENTATION/CONSCIOUSNESS: Yes awake, Yes oriented to person, Yes oriented to place and Yes oriented to time HENMT: COMMON NORMALS: normocephalic, atraumatic and hearing grossly normal bilaterally HEAD & SCALP: normocephalic and atraumatic Resp: COMMON NORMALS: normal respiratory effort, No retractions, No use of accessory muscles and clear to auscultation bilaterally AUSCULTATION: clear to auscultation bilaterally Cardio: COMMON NORMALS: regular rate, regular rhythm and No murmurs present (Cardio) RATE: regular rate RHYTHM: regular rhythm GI: COMMON NORMALS: Soft to palpation and No hepatosplenomegaly present AUSCULTATION: Yes normoactive bowel sounds PALPATION: Yes Soft to palpation, No Tenderness to palpation present (GI), No Guarding due to palpation present (GI) and Yes No hepatosplenomegaly present Extremity: COMMON NORMALS: normal to inspection, capillary refill normal, no clubbing, cyanosis or edema, no calf tenderness and no pedal edema Neuro: SENSORIUM/ORIENTATION: Yes oriented to person, Yes oriented to place and Yes oriented to time Skin: OTHER: Mild erythema of the face shoulders and upper back. Also on the neck no vesicles no induration. Course Vital Signs: Vital signs: Vital Signs Temperature 98.7 F 11/25/23 09:39 Pulse Rate 125 H 11/25/23 10:15 Respiratory Rate 17 11/25/23 09:39 Blood Pressure 116/79 11/25/23 10:15 Pulse Oximetry 99 11/25/23 10:15 Oxygen Delivery Me thod Room Air 11/25/23 10:09 MDM - Skin/Abscess/Foreign Bdy Medicial Decision Making Contact dermatitis patient given dexamethasone he will discharge home on steroid taper topical triamcinolone for the shoulders and back can use hydrocortisone [id number] on the face also use cetirizine and a oral steroid taper recheck if not improving Medical Records I reviewed the patient's medical records. Lab Data I reviewed the patient's lab results. No radiology studies performed this visit Discharge Plan Discharge Patient Disposition: Home Clinical Impression: Contact dermatitis Condition: Stable Prescriptions: New cetirizine 10 mg tablet 10 mg PO BID Qty: 20 0RF triamcinolone acetonide 0.5 % cream 1 applic topical BID Qty: 15 0RF Rx Instructions: Apply to shoulders neck and back, do not apply to the face methylprednisolone [Medrol (Cricket)] 4 mg tablets,dose pack See Rx Instructions .ROUTE .COMPLEX Qty: 21 0RF Rx Instructions: orally per package directions No Action (DME) Sole Supports See Rx Instructions .ROUTE .MEDSUPPLY Qty: 1 0RF Rx Instructions: As directed tizanidine [Zanaflex] 2 mg capsule 2 mg PO BID PRN (Reason: back spasm) atorvastatin 40 mg tablet 40 mg PO DAILY rizatriptan 10 mg tablet 10 mg PO Q2H PRN (Reason: Migraine Headache) Rx Instructions: do not exceed 3 doses per 24 hrs omeprazole 20 mg capsule,delayed release(DR/EC) 20 mg PO DAILY folic acid 1 mg tablet 1 mg PO DAILY cholecalciferol (vitamin D3) 50 mcg (2,000 unit) tablet 10,000 unit PO DAILY Norvasc 5 mg tablet 10 mg PO DAILY meloxicam 15 mg tablet 15 mg PO DAILY Qty: 30 2RF ibuprofen 200 mg Capsule 800 mg PO Q6H PRN (Reason: Pain) acetaminophen 325 mg capsule 650 mg PO Q4H PRN (Reason: fever or postoperative pain) tramadol 50 mg tablet 50 mg PO Q6H PRN (Reason: pain) Qty: 20 0RF Zyrtec 10 mg capsule 10 mg PO DAILY ferrous sulfate [Iron (ferrous sulfate)] 325 mg (65 mg iron) tablet 325 mg PO DAILY magnesium 200 mg Tablet 200 mg PO DAILY pregabalin 50 mg Capsule 50 mg PO DAILY Multi Vitamin 1 tab PO DAILY docusate sodium [Colace] 100 mg capsule 100 mg PO BID PRN (Reason: Constipation) Discharge Orders: Discharge ED (Routine); Ordered 11/25/23 Ordered By: Bubba Harris Referrals: Ira Rosa DO [Primary Care Provider] - Discharge Diet: Usual diet Discharge Activity: Increase activity as tolerated Patient Instructions: Opioid Safety, Pain Management Activity Restrictions/Additional Instructions: Thank you for choosing [facility] for your healthcare needs today. It is very important that you follow up as instructed or that you return to the Emergency Department should you have concerns or if your condition changes or worsens in any way. You are seen today for contact dermatitis. The bug spray irritated skin upper chest back shoulders neck and face. He is given a shot of dexamethasone steroid here begin the oral steroids tomorrow additionally you can use cetirizine 10 mg 1 twice a day. Use [id number] topical hydrocortisone applied to the face twice a day until is improving Coding Level of Care Code ED Clerk Rating for Pawel Hooks
[2023-11-25] MEDS: dexamethasone 10 mg/mL INJ IM (10:08)
[2023-11-25 10:09] VITALS: BP 116/79; PULSE 128; O2SAT 98
[2023-11-25 10:15] VITALS: BP 116/79; PULSE 125; O2SAT 99
== END 2023-11-25 10:15 | disposition home or self-care (01) ==
PROVIDERS: Emergency Provider Family Medicine; PCP Family Medicine
DX: L25.9 Unspecified contact dermatitis, unspecified cause (principal)
CPT/HCPCS: 96372; 99284; J1100

== ENCOUNTER 2023-12-05 13:21 | Emergency (ER) | payer MEDICAID, SELFPAY ==
[2023-12-05] VITALS (9 sets, daily range): BP systolic 152–185; BP diastolic 95–116; PULSE 99–115; RESP 16–21; TEMP 36.9; O2SAT 95–100; BMI 42.0
--- NOTE | 2023-12-05 13:38 | CT_ITS ---
WS: [id number] CTA HEAD AND NECK TECHNIQUE: Contrast enhanced CTA of the head and neck with coronal and sagittal reformatted images an d maximum intensity projection (MIP) images. NASCET criteria utilized. CLINICAL INFORMATION: Possible stroke COMPARISON: None. DLP: 460.[address] scans at [facility] use at least one of these dose optimization techniques: automated e xposure control; mA and/or kV adjustment per patient size (includes targeted exams where dose is matc hed to clinical indication); or iterative reconstruction. FINDINGS: RIGHT: RIGHT common carotid artery is patent. No significant RIGHT ICA stenosis. RIGHT ICA is patent to the skull base. LEFT: LEFT common carotid artery is patent. No significant LEFT ICA stenosis. LEFT ICA is patent to t he skull base. Codominant and patent vertebral arteries bilaterally. Proximal basilar artery is patent. INTRACRANIAL CTA: Distal vertebral arteries are patent. Basilar artery is patent. Normal vascularity to the TEMPLATE CLERK territory bilaterally. Both ICAs are patent at the skull base. Normal vascularity to the TATIANA and MCA territories bilaterally . No evidence of high-grade proximal stenosis. Small nodule inferior thyroid. CT/CT angio [facility]* [id number] IMPRESSION: Unremarkable head and neck CTA
--- NOTE | 2023-12-05 13:38 | CT_ITS ---
WS: [id number] CT HEAD TECHNIQUE: Noncontrast CT of the head obtained from the skullbase to the vertex. CLINICAL INFORMATION: Possible stroke COMPARISON: 03/16/2021 DLP: 1015.[address] scans at [facility] use at least one of these dose optimization techniques: automated e xposure control; mA and/or kV adjustment per patient size (includes targeted exams where dose is matc hed to clinical indication); or iterative reconstruction. FINDINGS: No evidence of intracranial hemorrhage or mass effect. Ventricular system and basal cisterns are jules nt. No extra-axial fluid collections. No evidence of mass or mass effect. Normal kelly-white differen tiation. Incidental slightly low-lying cerebellar tonsils. Paranasal sinuses and mastoid air cells are well aerated. .Normal visualized soft tissues. CT/CT head wo con* [id number] IMPRESSION: 1. No evidence of intracranial hemorrhage or mass effect. 2. No acute intracranial findings. Notified Shelli Armijo MD at 12/05/2023 1:50 PM.
--- NOTE | 2023-12-05 13:43 | W.ED.NEUROSD ---
HPI - Neuro Symptoms/Deficit General: Chief Complaint: Neuro Symptoms/Deficit Stated Complaint: stroke like symptoms, Facial numbness Time Seen by Provider: 12/05/23 13:33 History of Present Illness: 38-year-old female with history of migraines, obesity, who presents to the emergency room with left-sided facial droop and tongue numbness. She has been having a migraine for couple days now but these neurologic symptoms started today. She has not had atypical migraines in the past. Her blood pressure is elevated on presentation. She does have a slight droop to the left side of her mouth. No nausea or vomiting. No altered mental status. No speech deficits. Related Data Home Medications Medication Instructions Recorded Confirmed tizanidine 2 mg capsule (Zanaflex) 2 mg PO BID PRN back spasm 11/19/20 11/30/23 atorvastatin 40 mg tablet 40 mg PO DAILY 02/24/22 11/30/23 cholecalciferol (vitamin D3) 50 10,000 unit PO DAILY 02/24/22 11/30/23 mcg (2,000 unit) tablet folic acid 1 mg tablet 1 mg PO DAILY 02/24/22 11/30/23 omeprazole 20 mg capsule,delayed 20 mg PO DAILY 02/24/22 11/30/23 release rizatriptan 10 mg tablet 10 mg PO Q2H PRN Migraine Headache 02/24/22 11/30/23 cetirizine 10 mg capsule (Zyrtec) 10 mg PO DAILY 07/22/22 11/30/23 amlodipine 5 mg tablet (Norvasc) 10 mg PO DAILY 08/26/22 11/30/23 ferrous sulfate 325 mg (65 mg 325 mg PO DAILY 04/27/23 11/30/23 iron) tablet (Iron (ferrous sulfate)) Multi Vitamin 1 tab PO DAILY 04/28/23 11/30/23 docusate sodium 100 mg capsule 100 mg PO BID PRN Constipation 04/28/23 11/30/23 (Colace) magnesium 200 mg tablet 200 mg PO DAILY 04/28/23 11/30/23 pregabalin 50 mg capsule 50 mg PO DAILY 04/28/23 11/30/23 acetaminophen 325 mg capsule 650 mg PO Q4H PRN fever or 09/20/23 11/30/23 postoperative pain ibuprofen 200 mg capsule 800 mg PO Q6H PRN Pain 09/20/23 11/30/23 Previous Rx's Medication Instructions Recorded Sole Supports #1 ea 03/13/20 tramadol 50 mg tablet 50 mg PO Q6H PRN pain #20 tabs 09/21/23 meloxicam 15 mg tablet 15 mg PO DAILY #30 tabs 10/24/23 cetirizine 10 mg tablet 10 mg PO BID #20 tabs 11/25/23 prednisone 20 mg tablet 60 mg (3 x 20 mg) PO DAILY #20 tabs 12/05/23 valacyclovir 1 gram tablet 1,000 mg PO BID 10 days #20 tabs 12/05/23 (Valtrex) Allergies Allergy/AdvReac Type Severity Reaction Status Date / Time adhesive tape Allergy Intermediate ALGY-Rash Verified 11/30/23 14:50 dermabond Allergy skin Uncoded 11/30/23 14:50 irratation hormons in control AdvReac migraine Uncoded 11/30/23 14:50 Review of Systems Narrative: Constitutional symptoms: Negative except as documented in HPI. Skin symptoms: Negative except as documented in HPI. Eye symptoms: Negative except as documented in HPI. ENMT symptoms: Negative except as documented in HPI. Respiratory symptoms: Negative except as documented in HPI. Cardiovascular symptoms: Negative except as documented in HPI. Gastrointestinal symptoms: Negative except as documented in HPI. Genitourinary symptoms: Negative except as documented in HPI. Musculoskeletal symptoms: Negative except as documented in HPI. Neurologic symptoms: Negative except as documented in HPI. Psychiatric symptoms: Negative except as documented in HPI. Endocrine symptoms: Negative except as documented in HPI. 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 benign pathology. History of hysteroscopy (~10/04/22) Hysteroscopy D&C via Myosure. Performed by Milind [facility] for AUB and PP. History of lumpectomy of right breast 07/25/22 Dr. Huerta History of foot surgery 08/23/19ubtalor infusion repair tendon and extend Achilles tendon Postoperative state History of cholecystectomy History of appendectomy History of toe surgery Family History Other Chronic kidney disease (CKD) Diabetes H/O scleroderma Hyperlipidemia Hypertension Lupus Rheumatoid arthritis Denies family history of CAD (coronary artery disease) Lung disease Cancer Stroke Social History Smoking and tobacco/nicotine status: never used tobacco/nicotine Physical Exam Narrative: EXAM NARRATIVE: General: Alert, no acute distress. Skin: Warm, dry. Head: Normocephalic, atraumatic. Neck: Supple, trachea midline. Eye: Extraocular movements are intact. Ears, nose, mouth and throat: mucosa moist. Cardiovascular: Regular, Normal peripheral perfusion. Respiratory: Lungs are clear to auscultation, respirations are non-labored, breath sounds are equal, Symmetrical chest wall expansion. Gastrointestinal: Soft, Nontender, Non distended Musculoskeletal: Normal ROM, no deformity. Neurological: Alert and oriented, patient has some mild left droop of her mouth. This does also mildly involve the left eyebrow. no neurological deficits. Psychiatric: Cooperative, appropriate mood & affect. Course Vital Signs: Vital signs: Vital Signs Temperature 98.5 F 12/05/23 13:25 Pulse Rate 102 H 12/05/23 17:57 Respiratory Rate 16 12/05/23 17:00 Blood Pressure 170/95 12/05/23 17:57 Pulse Oximetry 96 12/05/23 17:57 Oxygen Delivery Me thod Room Air 12/05/23 17:00 MDM - Neuro Symptoms/Deficit Medical Decision Making Medical decision making: Differential diagnosis for patient with focal neurologic deficit(s) includes but not limited to and based on the above HPI, review of systems and physical exam: ischemic stroke, hemorrhagic stroke and embolic stroke secondary to atrial fibrillation), TIA, Wheeler's palsey, metabolic encephalopathy with previous stroke. Orders placed to evaluate differential diagnosis based on the above differential, HPI and physical exam Consultation: Based on the patient's symptoms of stroke alert was activated. I spoke with Dr. Deleon. I do believe this is a likely related to the migraine headache she has been having but stroke needs to be ruled out. She agrees. She also recommends DHE protocol. She did see the patient in the emergency room CT head: No acute intracranial process. no intracranial hemorrhage, no evidence of infarct. no evidence of acute fracture.This was reviewed and interpreted by myself the ER physician. CTA of the head and neck: No obvious occlusions are identified. No mass. This was reviewed and interpreted by myself the emergency room physician. I also reviewed the radiology report. EKG: Time 1355. Rate 99. Normal sinus rhythm, No ST-T changes, no ectopy, normal SC & QRS intervals, This was reviewed and interpreted by myself the ER physician at 1400 Lab Review: Laboratory results were reviewed and interpreted by myself the emergency room physician. Lab work is unremarkable. Mild leukocytosis. Hemoglobin stable at 12.7. No renal failure BUN/creatinine are 8 and 0.7. I reviewed the patient's medical record. Reexamination: Patient continues to have mild left facial droop with eyelid and eyebrow involvement. Headache has improved after treatment. Assessment and plan: Wheeler's palsy Migraine headache ?DHE protocol. Patient received multiple doses of valproic acid. She also received IV Solu-Medrol. Home on steroid and valacyclovir. Patient will follow-up with neurology - Discharged home - Discussed findings and plan with patient. Answered any questions. - All laboratory values were reviewed and interpreted personally by myself, the ER physician - All imaging was reviewed and interpreted personally by myself, the ER physician. - Evaluation and treatment of this problem were appropriate in the emergency setting Lab Data 12/05/23 13:39 12/05/23 13:[address] 12/05/23 13:38 IMPRESSION: 1. No evidence of intracranial hemorrhage or mass effect. 2. No acute intracranial findings. Notified Shelli Armijo MD at 12/05/2023 1:50 PM. Head/Neck CTA 12/05/23 13:38 IMPRESSION: Unremarkable head and neck CTA Laboratory Results WBC 12.35 10^3/uL (3.29-11.43) H 12/05/23 13:39 RBC 4.52 10^6/uL (3.85-5.65) 12/05/23 13:39 Hgb 12.70 g/dL (11.27-16.99) 12/05/23 13:39 Hct 39.6 % (36-47) 12/05/23 13:39 MCV 87.6 fl (85-98) 12/05/23 13:39 MCH 28.1 pg (27-33) 12/05/23 13:39 MCHC 32.1 g/dL (30-55) 12/05/23 13:39 RDW 14.5 % (12.1-15.1) 12/05/23 13:39 Plt Count 331 10^3/cmm (157-399) 12/05/23 13:39 MPV 8.7 fL (7.4-10.4) 12/05/23 13:39 Neut % (Auto) 70.2 % 12/05/23 13:39 Lymph % (Auto) 21.5 % 12/05/23 13:39 [place] % (Auto) 4.9 % 12/05/23 13:39 Eos % (Auto) 1.9 % 12/05/23 13:39 Baso % (Auto) 0.9 % 12/05/23 13:39 Neut # (Auto) 8.67 10^3/uL (1.8-7.7) H 12/05/23 13:39 Lymph # (Auto) 2.7 10^3/uL (0.8-4.8) 12/05/23 13:39 [place] # (Auto) 0.6 10^3/uL (0.2-0.9) 12/05/23 13:39 Eos # (Auto) 0.2 10^3/uL (0.0-0.8) 12/05/23 13:39 Baso # (Auto) 0.1 10^3/uL (0.0-0.1) 12/05/23 13:39 Nucleated RBC % (auto) 0 % 12/05/23 13:39 Nucleated RBCs # 0.0 /100WBC 12/05/23 13:39 PT 12.70 SECONDS (12.1-14.9) 12/05/23 13:39 INR 0.93 (0.8-1.2) 12/05/23 13:39 APTT 28.0 SECONDS (23.9-36.7) 12/05/23 13:39 Sodium 138 mmol/L (136-145) 12/05/23 13:39 Potassium 3.8 mmol/L (3.5-5.1) 12/05/23 13:39 Chloride 103 mmol/L (98-107) 12/05/23 13:39 Carbon Dioxide 25 mmol/L (22-29) 12/05/23 13:39 Anion Gap 13.8 (5-19) 12/05/23 13:39 BUN 8 mg/dL (6-20) 12/05/23 13:39 Creatinine 0.7 mg/dL (0.5-0.9) 12/05/23 13:39 GFR Calculation 94.7 mL/min (90-130) 12/05/23 13:39 Glucose 118 mg/dL (65-115) H 12/05/23 13:39 POC Glucose 107 mg/dL (70-110) 12/05/23 13:47 Calculated Osmolality 285 mOsm/kg (285-295) 12/05/23 13:39 Calcium 8.4 mg/dL (8.5-10.5) L 12/05/23 13:39 Total Bilirubin 0.4 mg/dL (0.15-1.2) 12/05/23 13:39 AST 12 U/L (0-32) 12/05/23 13:39 ALT 16 U/L (0-33) 12/05/23 13:39 Alkaline Phosphatase 98 U/L (35-105) 12/05/23 13:39 Total Protein 6.9 g/dL (6.6-8.7) 12/05/23 13:39 Albumin 3.7 g/dL (3.5-5.2) 12/05/23 13:39 Globulin 3.2 g/dL (1.3-4.6) 12/05/23 13:39 Urine Color Yellow (Yellow) 12/05/23 14:12 Urine Appearance Clear (CLEAR) 12/05/23 14:12 Urine pH 7.5 (5-7) 12/05/23 14:12 Ur Specific [place] 1.067 (1.005-1.030) H 12/05/23 14:12 Urine Protein Negative (Negative) 12/05/23 14:12 Urine Glucose (UA) Negative (Normal) 12/05/23 14:12 Urine Ketones Negative (Negative) 12/05/23 14:12 Urine Blood Negative (Negative) 12/05/23 14:12 Urine Nitrate Negative (Negative) 12/05/23 14:12 Urine Bilirubin Negative (Negative) 12/05/23 14:12 Urine Urobilinogen 1.0 mg/dL (Negative) 12/05/23 14:12 Ur Leukocyte Esterase Negative (Negative) 12/05/23 14:12 Urine RBC 0-2 /hpf (0-2) 12/05/23 14:12 Urine WBC 0-5 /hpf (0-5) 12/05/23 14:12 Ur Squamous Epith Cells 0-5 /hpf (0-5) 12/05/23 14:12 Amorphous Sediment Not Reportable 12/05/23 14:12 Urine Bacteria None seen /hpf (NONE) 12/05/23 14:12 Hyaline Casts 0-4 /lpf H 12/05/23 14:12 All radiology interpretation(s) finalized by discharge Discharge Plan Discharge Patient Disposition: Home Clinical Impression: Wheeler's palsy, Headache, migraine, Accelerated hypertension Condition: Stable Prescriptions: New prednisone 20 mg tablet 60 mg PO DAILY Qty: 20 0RF Rx Instructions: 3 tabs (60 mg) x 3 days. 2 tabs (40 mg) x 3 days. 1 tab (20 mg) x 3 days. 1/2 tab (10 mg) x 4 days valacyclovir [Valtrex] 1 gram tablet 1,000 mg PO BID 10 Days Qty: 20 0RF No Action (DME) Sole Supports See Rx Instructions .ROUTE .MEDSUPPLY Qty: 1 0RF Rx Instructions: As directed tizanidine [Zanaflex] 2 mg capsule 2 mg PO BID PRN (Reason: back spasm) atorvastatin 40 mg tablet 40 mg PO DAILY rizatriptan 10 mg tablet 10 mg PO Q2H PRN (Reason: Migraine Headache) Rx Instructions: do not exceed 3 doses per 24 hrs omeprazole 20 mg capsule,delayed release(DR/EC) 20 mg PO DAILY folic acid 1 mg tablet 1 mg PO DAILY cholecalciferol (vitamin D3) 50 mcg (2,000 unit) tablet 10,000 unit PO DAILY Norvasc 5 mg tablet 10 mg PO DAILY meloxicam 15 mg tablet 15 mg PO DAILY Qty: 30 2RF ibuprofen 200 mg Capsule 800 mg PO Q6H PRN (Reason: Pain) acetaminophen 325 mg capsule 650 mg PO Q4H PRN (Reason: fever or postoperative pain) tramadol 50 mg tablet 50 mg PO Q6H PRN (Reason: pain) Qty: 20 0RF Zyrtec 10 mg capsule 10 mg PO DAILY ferrous sulfate [Iron (ferrous sulfate)] 325 mg (65 mg iron) tablet 325 mg PO DAILY magnesium 200 mg Tablet 200 mg PO DAILY pregabalin 50 mg Capsule 50 mg PO DAILY Multi Vitamin 1 tab PO DAILY docusate sodium [Colace] 100 mg capsule 100 mg PO BID PRN (Reason: Constipation) cetirizine 10 mg tablet 10 mg PO BID Qty: 20 0RF Discharge Orders: Discharge ED (Routine); Ordered 12/05/23 Ordered By: Shelli Armijo Referrals: Flaquiat Deleon MD [Physician] - 7-10 days (Call for an appointment) Ira Rosa DO [Primary Care Provider] - Discharge Diet: Usual diet Discharge Activity: Increase activity as tolerated Patient Instructions: Wheeler Palsy (ED), Opioid Safety Activity Restrictions/Additional Instructions: Thank you for choosing [facility] for your healthcare needs today. Please realize this is an emergency room and that we are providing you with a medical screening exam and this may not be complete and all inclusive of all the testing and or work up that you may need to determine your ailment or severity of your illness. You have been screened and evaluated and felt safe for discharge. Health conditions do change or evolve sometimes and as such it is important that you follow up with your Primary Doctor to be re checked, 3-5 days is a general good time frame for follow up. You are always welcome to return to the ED for re assessment if your symptoms are worsening or you have new concerns Coding Level of Care Code ED Printing [employer] T[employer] for [employer]
[2023-12-05 13:48] LABS: Basophils # 0.1 10^3/uL (0.0-0.1); Basophils % 0.9 %; Eosinophils # 0.2 10^3/uL (0.0-0.8); Eosinophils % 1.9 %; Hematocrit 39.6 % (36-47); Lymphocytes # 2.7 10^3/uL (0.8-4.8); Lymphocytes % 21.5 %; Mean Corpuscular HGB Conc 32.1 g/dL (30-55); Mean Corpuscular Hemoglobin 28.1 pg (27-33); Mean Corpuscular Volume 87.6 fl (85-98); Mean Platelet Volume 8.7 fL (7.4-10.4); Monocytes # 0.6 10^3/uL (0.2-0.9); Monocytes % 4.9 %; Neutrophils # 8.67 10^3/uL (1.8-7.7); Neutrophils % 70.2 %; Nucleated Red Blood Cells % 0 %; Platelet Count 331 10^3/cmm (157-399); Red Blood Count 4.52 10^6/uL (3.85-5.65); Red Cell Distribution Width 14.5 % (12.1-15.1); White Blood Count 12.35 10^3/uL (3.29-11.43)
--- NOTE | 2023-12-05 13:55 | ECG_ITS ---
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
[2023-12-05] MEDS: iohexol 350 mg/mL 500 mL Btl (per mL) IV (13:58)
[2023-12-05 14:05] LABS: Glucose Point of Care 107 mg/dL (70-110)
[2023-12-05] MEDS: diphenhydrAMINE 50 mg/mL SDV 1mL 25 MG IVP (14:06)
[2023-12-05 14:09] LABS: Alanine Aminotransferase 16 U/L (0-33); Albumin Level 3.7 g/dL (3.5-5.2); Alkaline Phosphatase 98 U/L (35-105); Anion Gap 13.8 (5-19); Aspartate Amino Transferase 12 U/L (0-32); Blood Urea Nitrogen 8 mg/dL (6-20); Calcium 8.4 mg/dL (8.5-10.5); Carbon Dioxide 25 mmol/L (22-29); Chloride 103 mmol/L (98-107); Creatinine Clr Calc Pharmacy 135.5326; Globulin 3.2 g/dL (1.3-4.6); Glomerular Filtration Rate 94.7 mL/min (90-130); Glucose 118 mg/dL (65-115); Osmolality Calculated 285 mOsm/kg (285-295); Potassium 3.8 mmol/L (3.5-5.1); Sodium 138 mmol/L (136-145); Total Bilirubin 0.4 mg/dL (0.15-1.2); Total Protein 6.9 g/dL (6.6-8.7)
[2023-12-05] MEDS: ondansetron 2 mg/ML SDV 2 mL 4 MG IVP (14:09)
[2023-12-05 14:26] LABS: INR 0.93 (0.8-1.2)
[2023-12-05 14:40] LABS: Bilirubin Urine Negative (Negative); Blood Urine Negative (Negative); Glucose Urine UA Negative (Normal); Ketones Urine Negative (Negative); Leukocyte Esterase Urine Negative (Negative); Nitrate Urine Negative (Negative); Protein Urine Negative (Negative); Urine Appearance Clear (CLEAR); Urine Color Yellow (Yellow); pH Urine 7.5 (5-7)
[2023-12-05 14:45] LABS: Bacteria Urine None Seen /hpf; Hyaline Casts Urine 0-4 /lpf; RBC Urine 0-2 /hpf (0-2); Squamous Epithelial Cell Urine 0-5 /hpf (0-5); WBC Urine 0-5 /hpf (0-5)
[2023-12-05 14:49] LABS: Specific Gravity, Urine 1.067 (1.005-1.030)
[2023-12-05] MEDS: valproic acid inj 500 MG in sodium chloride 0.9% 50 ML 55 MG IV (15:11)
[2023-12-05] MEDS: methylPREDNISolone sod succ 125 mg/2 mL INJ IVP (16:36)
[2023-12-05] MEDS: ketorolac 30 mg/mL INJ IVP (16:43)
--- NOTE | 2023-12-05 20:13 | P.PNCC_ITS ---
Stroke Alert Activation ED Arrival Date: 12/05/23 ED Arrival Time: 13:25 ED Physican at Bedside: 13:43 Last Known Normal/at Baseline: 3-4 hours ago Other Last Known Well Infomation: Stroke alert was activated at 1335 for this 38-year-old woman who presented with a headache and minor left facial numbness or weakness. I called Dr. Armijo as soon as the stroke alert was called and was he had a chance to evaluate the patient he returned my call. She had a headache for 3 days that was severe, and he was his impression that her strokelike symptoms might be a part of her migraine. We agreed to treat her with Depacon and reassess. She failed to achieve any benefit and her facial weakness was more noticeable and so I came to see the patient. She noticed a droop of the left side of her face and numbness of her tongue when she got up this morning. She has diffuse dull pain across her forehead. Although she is typically a headache sufferer, her headaches generally do not last for more than a day. She denies any pain behind her ear. She has not noticed any change in sound. The left side of her tongue feels numb but she has not had any difficulty speaking or swallowing. She did not notice any benefit from Depacon Stroke Alert Activated by: triage Stroke Alert Activation Time: 13:35 Stroke MD @ Bedside Time: 13:35 NIH stroke score NIHSS: Level Of Consciousness - 1a: 0 Level Of Consciousness Questions - 1b: Both Correct Level Of Consciousness Commands - 1c: Both Correct Best G aze - 2: Normal Visual Staley - 3: No Visual Loss Facial Palsy - 4: Partial Paralysis Motor Arm Right - 5: No Drift Motor Arm Left - 5: No Drift Motor Leg Right - 6: No Drift Motor Leg Left - 6: No Drift Limb Ataxia - 7: Absent Sensory - 8: Normal Best Language - 9: No Aphasia Dysarthia - 10: Normal Extinction And Inattention - 11: 0 Score: Total Score: 2 Stroke Alert Data/Treatment Time to CT of Head: 13:40 CT Results Time: 13:50 CT Impression: CT scan of the head was normal. Dr. Armijo also ordered CT angiogram for some reason and that was also normal. Stroke Risk Factors: hypertension and obesity tPA Contraindication: tPA Contraindication: Treatment not indcated tPA Admin Prior to Arrival: No Other Patient & Family Education: Wheeler's palsy Other Information: I came to the emergency department and examined the patient. 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 Prognosis is good for rapid recovery. Plan antiviral treatment and 250 mg of Solu-Medrol to try to get rid of her headache followed by Medrol Dosepak. Discussed with Dr. Armijo. He followed through with the plan and sent the patient home on steroid and valacyclovir. She may require neurology consultation as an outpatient. Critical Care Time Critical Care Time: 30 - 74 mins Additional information a bout critical care time: Patient's findings were somewhat atypical. I spent a significant amount of time reviewing all of her imaging studies, her history and examination, making a plan and discussing with Dr. Armijo. A&P Assessment and plan (1) Wheeler's palsy: She has peripheral pattern of left seventh facial weakness with minor numbness of the left side of the tongue with no objective findings of the tongue. No signs of brainstem stroke. She could stand at the bedside without tipping and stand with her feet together and no drift of her arms. Pretty confident this is a mild Wheeler's palsy and accelerated migraine. (2) Acute migraine: (3) Accelerated hypertension: Coding Level of Care Code Acute Code for [facility] Diagnoses Wheeler's palsy G51.0 Acute migraine G43.909 Accelerated hypertension I10
== END 2023-12-05 17:59 | disposition home or self-care (01) ==
PROVIDERS: Emergency Provider Emergency Medicine; PCP Family Medicine
DX: G51.0 Bell's palsy (principal); G43.909 Migraine, unspecified, not intractable, without status migrainosus; I10 Essential (primary) hypertension
CPT/HCPCS: 36415; 36416; 70450; 70496; 70498; 80053; 81001; 82962; 85025; 85610; 85730; 93005; 96365; 96375; 99285; J1200; J1885; J2405; J2919; J3490

== ENCOUNTER 2023-12-07 10:13 | Outpatient (RCR) | payer MEDICAID, SELFPAY | END 2023-12-14 23:59 | disposition home or self-care (01) | LOC: SOT 10:13 | PROVIDERS: PCP Family Medicine; Visit Provider Physician Assistant | DX: M65.4 Radial styloid tenosynovitis [de Quervain] (principal); Z98.890 Other specified postprocedural states | CPT/HCPCS: 97110; 97165; 97530 ==

== ENCOUNTER → 2024-01-07 17:24 | Outpatient (BNVA) | payer MEDICAID, SELFPAY | PROVIDERS: PCP Family Medicine; Visit Provider Emergency Medicine | DX: J02.9 Acute pharyngitis, unspecified (principal); J02.0 Streptococcal pharyngitis | CPT/HCPCS: 87071; 87880 ==

== ENCOUNTER → 2024-02-01 15:11 | Outpatient (BNVA) | payer MEDICAID, SELFPAY | PROVIDERS: PCP Family Medicine; Visit Provider Physician Assistant | DX: M70.62 Trochanteric bursitis, left hip | CPT/HCPCS: 73502 ==

== ENCOUNTER 2024-02-02 13:08 | Outpatient (CLI) | payer MEDICAID, SELFPAY ==
--- NOTE | 2024-02-02 13:45 | MR_ITS ---
WS: [id number] MRI LEFT ANKLE WITHOUT CONTRAST. COMPARISON: None Multiplanar, multisequence imaging is performed without contrast. Extensive fusion hardware causing artifact and obscuring detail. Large screws send across the talocal caneal articulation. Additional plate and screw fixation at the first tarsal metatarsal joint. Additi onal screws in the first and second toes extending across the proximal and distal IP joints. No acute fracture. Achilles tendon is normal. Peroneal tendons are normal. Posterior tibialis tendon and the flexor hallucis longus and flexor digi torum longus are appropriate. Extensor tendons are normal. ATFL is intact. There is a small amount of fluid adjacent to the ATFL but is intact. Normal appearanc e of the anterior inferior tibiofibular ligament. Deltoid ligament is poorly seen due to artifact. No widening of the syndesmosis. MR/MR ankle LT wo con* [id number] IMPRESSION: 1. Osseous fusion hardware across the talocalcaneal articulation. 2. No acute fractures. No tendon abnormalities or tear. 3. Small amount of fluid adjacent to the ATFL but it does appear to be intact. A small tear cannot be excluded.
== END 2024-02-02 13:09 | disposition home or self-care (01) ==
LOC: RAD 13:09
PROVIDERS: PCP Family Medicine; Visit Provider Podiatrist Foot & Ankle Surgery
DX: M25.472 Effusion, left ankle (principal); Z96.662 Presence of left artificial ankle joint
CPT/HCPCS: 73721

== ENCOUNTER → 2024-08-13 12:57 | Outpatient (BNVA) | payer MEDICAID, SELFPAY | PROVIDERS: PCP Family Medicine; Visit Provider Podiatrist Foot & Ankle Surgery | DX: M25.372 Other instability, left ankle (principal) | CPT/HCPCS: 73610 ==

== ENCOUNTER 2024-09-06 06:18 | Day surgery (SDC) | payer MEDICAID, SELFPAY ==
[2024-09-06] VITALS (19 sets, daily range): BP systolic 127–169; BP diastolic 73–123; PULSE 71–95; RESP 10–24; TEMP 36.1–36.4; O2SAT 91–99; BMI 42.9
--- NOTE | 2024-09-06 06:09 | ANES.PREANE2 ---
Pre-Anesthetic Assessment Height/Weight: Height 5 ft 4 in Preop Diagnosis: Painful hardware Operation Date: 09/06/24 08:00 Proposed Procedures p Hardware Removal foot(Left) - Iglesia Payan DPM s Arthrodesis Subtalar Joint Subtalar Joint Fusion(Left) - Iglesia Payan DPM s Autogenous bone graft Left lower extremity(Left) - Iglesia Payan DPM Was Beta Shanika taken within 24 hours: N/A Was Clonidine taken within 24 hours: N/A Social No alcohol and No tobacco Exam alert, oriented x 3, clear to auscultation bilaterally and regular rate & rhythm Airway Submandibular: within normal limits Cervical ROM: within normal limits Mallampati: Class II Dentition: full Anesthetic Plan ASA status: 3 Anesthesia: General and Regional (specify below) Other: No prior issues with anesthesia NPO since yesterday evening History of hypertension prescribed valsartan. Patient does not take this regularly. Preop BP 169/123. Will recheck prior to procedure GERD, states medications have not worked for her. Diet controlled. No symptoms this morning Rheumatoid arthritis Prior EKG showing sinus rhythm Plan for general anesthesia with peripheral nerve block Medications/Allergies Home Medications ?Medication ?Instructions ?Recorded ?Confirmed ?Last Taken ?Type Sole Supports #1 ea 03/13/20 08/13/24 07/24/22 Rx acetaminophen 325 mg capsule 650 mg PO Q4H PRN fever or 09/20/23 09/06/24 09/05/24 History postoperative pain articulating AFO to the left #1 ea 04/29/24 08/13/24 Unknown Rx valsartan 160 mg tablet 160 mg PO BID 08/13/24 09/06/24 09/05/24 History Allergies Allergy/AdvReac Type Severity Reaction Status Date / Time adhesive tape Allergy Intermediate ALGY-Rash Verified 09/06/24 06:35 dermabond Allergy skin Uncoded 09/06/24 06:35 irratation hormons in control AdvReac migraine Uncoded 09/06/24 06:35 PFSH Anesthesia Medical History (Updated 08/27/24 @ 06:52 by Iglesia Payan DPM) Left hip pain Sacroiliac inflammation Joint pain Onychodystrophy Hypertrophy of tongue 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 benign pathology. History of hysteroscopy (~10/04/22) Hysteroscopy D&C via Myosure. Performed by Milind [facility] for AUB and PP. History of lumpectomy of right breast 07/25/22 Dr. Huerta History of foot surgery 08/23/19ubtalor infusion repair tendon and extend Achilles tendon Postoperative state History of cholecystectomy History of appendectomy History of toe surgery Family History Other Chronic kidney disease (CKD) Diabetes H/O scleroderma Hyperlipidemia Hypertension Lupus Rheumatoid arthritis Denies family history of CAD (coronary artery disease) Lung disease Cancer Stroke Social History Smoking and tobacco/nicotine status: never used tobacco/nicotine
--- NOTE | 2024-09-06 07:48 | W.PM.OPSUD ---
Surgery/Procedure H&P Update DATE OF PROCEDURE: September 06, 2024 DATE H&P PERFORMED: 08/13/24 H&P UPDATE INFORMATION: I have reviewed H&P completed within last 30 days, I have examined patient prior to procedure, No changes to prior documentation and Risks and benefits of the procedure reviewed PREOP DIAGNOSIS: Left pes planus with painful hardware. PLANNED PROCEDURE: Operation Date: 09/06/24 08:00 Proposed Procedures p Hardware Removal foot(Left) - Iglesia Payan DPM s Arthrodesis Subtalar Joint Subtalar Joint Fusion(Left) - IVY Soria Autogenous bone graft Left lower extremity(Left) - Iglesia Payan DPM
[2024-09-06] MEDS: ceFAZolin 2,000 mg SDV 2000 MG IVP (07:54)
[2024-09-06] MEDS: tranexamic acid 1,000 mg/10mL SDV 1000 MG IV (08:10)
--- NOTE | 2024-09-06 08:16 | ANES.PROC ---
Anesthesia Procedures Procedure/Date: 09/06/24 Nerve Block ^: Nerve Block 1: Main Anesthesia: general anesthesia Time Out Performed: Yes Consent: requested by attending/covering physician and from patient Nerve block location: popliteal Anesthesia monitors applied: pulse oximetry, EKG, BP cuff and oxygen Nerve block position: supine Anesthetic Used: ropivicaine 0.5% Amount of anesthesia used (mL): 30 Ultrasound used to: recognize landmarks Nerve Stimulator Used?: Yes Interscalene/Femoral BLK: other needle (pjunk 4inch) Injection: neg aspiration of heme Patient Tolerated Procedure: well Complications: none Additional Comments: decadron 4mg added to block
--- NOTE | 2024-09-06 08:19 | ANES.PROC ---
Anesthesia Procedures Procedure/Date: 09/06/24 Nerve Block ^: Nerve Block 1: Main Anesthesia: general anesthesia Time Out Performed: Yes Consent: requested by attending/covering physician Nerve block location: adductor canal Anesthesia monitors applied: pulse oximetry, EKG, BP cuff and oxygen Nerve block position: supine Anesthetic Used: ropivicaine 0.5% Amount of anesthesia used (mL): 15 Ultrasound used to: recognize landmarks Nerve Stimulator Used?: Yes Interscalene/Femoral BLK: other needle (pjunk 4inch) Injection: neg aspiration of heme Patient Tolerated Procedure: well Complications: none
--- NOTE | 2024-09-06 09:52 | P.BOP_ITS ---
Date of Procedure: 04/28/23 Surgeon: Iglesia Payan DPM Project Management Specialist(s): Gabe Hobson Procedure(s) performed: Hardware removal and subtalar joint fusion left foot. 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
--- NOTE | 2024-09-06 09:52 | PM.OP ---
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 Procedure done: 1) hardware removal left foot. CPT code 45101 2) left subtalar joint fusion. CPT code 69799 Implants: 2-0 Vicryl, 3-0 Vicryl, 4-0 nylon, 5 mL of beast plus DBM by [employer], [place] 7.0 and 5.5 millimeter screws Specimens removed/disposition: None Pathology: None Surgeon: Iglesia Payan DPM Transcriber: Johanne Estimated blood loss: 2 mL 1 hour and 20 minutes IV fluids: See intraoperative documentation Urine output: None Complications: None Findings: Nonunion left subtalar joint. Brief History: x-ray left ankle lateral view demonstrates intact hardware at subtalar joint with lucency distal screws indicating micromotion, incomplete bony healing at subtalar joint arthrodesis without bony bridging at posterior facet or middle facet. 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 I reviewed at length with the patient, the risks, potential complications, benefits, alternatives, expectations, and typical outcomes associated with the surgery. The risks and potential complications were explained in detail, including but not limited to infection, wound dehiscence or soft tissue complications, bleeding and hematoma, chronic edema, neuritis or nerve damage producing numbness or chronic pain, CRPS, failure to relieve pain or worsening pain, thick / painful / unsightly scar, limited motion / stiffness, malposition, delayed union, malunion, or nonunion, fracture, reaction to implants, anesthetic complications, venous thromboembolism, and deformity recurrence. I discussed the notion of no regrets with the patient as it pertains to complications and outcomes. The patient seemed to understand the nature of the proposed care and required convalescence. They asked appropriate questions, answered to their satisfaction. They are aware no guarantees can be made as to a satisfactory outcome and they understand there may be other possible unforeseen complications or outcomes not listed here that will be treated accordingly if they arise. There were no written or implied guarantees given to the patient. They gave informed consent to proceed. Recommended hardware removal, resection of nonunion and revisional arthrodesis of the left subtalar joint with autogenous bone grafting patient would like to proceed September 06, 2024. Procedure: Under mild sedation patient was brought to the operating room and placed on the operating room table in supine position. Timeout was performed. Of note left popliteal block was performed preoperatively per anesthesia. Well-padded pneumatic tourniquet applied to the left ankle. The left lower extremity was scrubbed, prepped and draped utilizing normal aseptic technique. Left foot and ankle were then exanguinated with Esmarch bandage and tourniquet inflated to 250 mmHg. Attention was directed to the left lateral foot where previous incision at sinus tarsi was identified directly over previous incision and a #15 blade was utilized incision through skin and subcutaneous tissue down to layer of periosteum utilizing a sharp and blunt technique, care was taken to retract and preserve neurovascular and tendinous structures. All bleeders were ligated and cauterized as necessary. Access was gained into the subtalar joint which yielded nonunion findings with minimal bony trabecular growth this was resected and the subtalar joint was prepped more aggressively with bone resurfacing total, saline flush, fenestrating drill bit, shank and osteotome both at the undersurface of the talus and superior surface of the calcaneus. At this point attention was directed to the posterior inferior calcaneus where a 1 cm incision was performed over previous cicatrix and dissection carried down to screw head 1 cm incision was performed over previous cicatrix where a 1 cm incision was performed with dissection carried down to hardware 2 screws were identified and removed in total without fragmentation or failure. The subtalar joint was held in slight valgus and otherwise in neutral position and 2 [place] screws 7 mm in diameter were fixated utilizing standard AO technique oriented within the calcaneus from plantar posterior and finishing in the talus from anterior superior not crossing ankle joint and being centralized within the body of the talus confirmed on AP oblique and lateral views of the foot as well as AP of the ankle. Screws were placed in parallel fashion. An additional point of fixation from inferior to superior of the talar body and from the calcaneal body was advanced utilizing standard AO technique with excellent bony apposition and compression noted. The arthrodesis site was packed with DBM provided by [employer]ri this was beast DBM and was noted to be compressed. The incision was irrigated with saline solution and closed in a layered fashion with periosteum reapproximated with 2-0 Vicryl, subcutaneous tissue with 3-0 Vicryl and skin with 4-0 nylon. Incision was dressed with Xeroform, sterile 4 x 4 gauze, Kerlix and Edy wrap followed by application of a cam boot to the left lower extremity. Tourniquet was deflated and a prompt hyperemic response is noted to the distal digits of the left foot. Patient tolerated the procedure and anesthesia well and was transferred to the PACU with vital signs stable and vascular status intact. Following a period of postoperative monitoring she will be discharged home without home care instructions and scheduled follow-up.
[2024-09-06] MEDS: fentaNYL 50 mcg/mL INJ 2mL IVP ×2 (09:56→10:07)
[2024-09-06] MEDS: HYDROmorphone 1 mg/mL INJ 1ml 0.5 MG IVP ×2 (10:18→10:31)
[2024-09-06] MEDS: HYDROcodone-acetaminophen 10-325 mg Tablet 1 TAB PO (11:11)
--- NOTE | 2024-09-06 11:15 | PC.NURSE ---
PATIENT PAIN LEVEL DOWN TO 3 AFTER PACU PHASE ONE TREATMENT. PT GIVEN HOME PAIN MEDICATION PILL PRIOR TO DC FOR DISCOMFORT.
--- NOTE | 2024-09-06 11:39 | ANE.PACU2 ---
Inpatient post-anesthesia follow up: Airway intact: Yes Vital signs: Temperature 97.6 F Pulse Rate 92 Respiratory Rate 16 Blood Pressure 163/90 Pulse Oximetry 99 Oxygen Delivery Me thod Room Air Oxygen Flow Rate Fraction of Inspir ed Oxygen Hydration adequate: Yes Nausea and vomiting: No Pain level: 1 Mental status: Baseline
== END 2024-09-06 11:39 | disposition home or self-care (01) ==
PROVIDERS: PCP Family Medicine; Visit Provider Podiatrist Foot & Ankle Surgery
PROC: (CPT 28725; principal; 2024-09-06 08:00)
PROC: (CPT 28725; 2024-09-06 08:00)
DX: T84.84XA Pain due to internal orthopedic prosthetic devices, implants and grafts, initial encounter (principal); R26.89 Other abnormalities of gait and mobility; M96.0 Pseudarthrosis after fusion or arthrodesis; M21.42 Flat foot [pes planus] (acquired), left foot; K21.9 Gastro-esophageal reflux disease without esophagitis; I10 Essential (primary) hypertension; M06.9 Rheumatoid arthritis, unspecified
CPT/HCPCS: 28725; 64445; 73630; 76000; C1713; C9359; J0690; J1100; J1171; J2371; J2405; J2704; J3010; J7030; J9999

== ENCOUNTER → 2024-09-19 14:26 | Outpatient (BNVA) | payer MEDICAID, SELFPAY | PROVIDERS: PCP Family Medicine; Visit Provider Podiatrist Foot & Ankle Surgery | DX: Z98.890 Other specified postprocedural states (principal) | CPT/HCPCS: 73620 ==

== ENCOUNTER 2024-09-20 07:59 | Outpatient (CLI) | payer MEDICAID, SELFPAY | END 2024-09-20 08:00 | disposition home or self-care (01) | LOC: SPT 08:00 | PROVIDERS: PCP Family Medicine; Visit Provider Podiatrist Foot & Ankle Surgery | DX: Z47.89 Encounter for other orthopedic aftercare (principal); M79.672 Pain in left foot; Z98.890 Other specified postprocedural states | CPT/HCPCS: L4361 ==

== ENCOUNTER → 2024-10-17 14:34 | Outpatient (BNVA) | payer MEDICAID, SELFPAY | PROVIDERS: PCP Family Medicine; Visit Provider Podiatrist Foot & Ankle Surgery | DX: Z98.890 Other specified postprocedural states (principal) | CPT/HCPCS: 73630 ==

== ENCOUNTER → 2024-11-14 12:49 | Outpatient (BNVA) | payer MEDICAID, SELFPAY | PROVIDERS: PCP Family Medicine; Visit Provider Podiatrist Foot & Ankle Surgery | DX: Z98.890 Other specified postprocedural states (principal) | CPT/HCPCS: 73630 ==

== ENCOUNTER → 2024-11-27 12:40 | Outpatient (BNVA) | payer MEDICAID, SELFPAY | PROVIDERS: PCP Family Medicine; Visit Provider Podiatrist Foot & Ankle Surgery | DX: Z98.890 Other specified postprocedural states (principal) | CPT/HCPCS: 73630 ==

== ENCOUNTER → 2024-12-25 12:52 | Outpatient (BNVA) | payer MEDICAID, SELFPAY | PROVIDERS: PCP Family Medicine; Visit Provider Podiatrist Foot & Ankle Surgery | DX: Z98.890 Other specified postprocedural states (principal) | CPT/HCPCS: 73630 ==